=== PATIENT | male | born 1945 | race Caucasian/White ===

== ENCOUNTER 2019-03-26 07:53 | Outpatient (CLI) | payer MEDICARE, OTHER, SELFPAY ==
--- NOTE | ~2019-03-26 | CT_ITS ---
EXAMINATION: CT abdomen pelvis w con DATE: 03/26/2019 09:08 INDICATION: Small B cell lymphoma of axilla TECHNIQUE: Computed tomography (CT) of the abdomen and pelvis was performed with 100 cc Omnipaque 350 intravenous contrast. Automated exposure control and iterative reconstruction technique were employe d. Exam dose: 1014.71 mGy-cm total exam DLP. COMPARISON: None. FINDINGS: There are bilateral pleural calcifications suggesting prior asbestos exposure. There is ate lectasis and/or fibrotic change in the posterior left lung base, left lower lobe. Cardiomegaly. Trace pericardial effusion. There is slight right and minimal left pleural effusion. No hepatic space-occupying mass lesion or bile duct or pancreatic duct dilatation. The gallbladder is unremarkable. No pancreatic mass lesion or calcification. There is splenomegaly, the spleen measuring approximately 14.9 cm height. There is periportal, periao rtic, aortocaval and bilateral common, external and internal iliac lymphadenopathy. Aortocaval nodes measure up to 1.8 cm. Left periaortic nodes measure up to 1.4 cm. Left external iliac lymph node mass measures up to 2.35 x 4.0 cm. Right external iliac lymph node mas s measures up to 2.7 x 4.7 cm. Bilateral inguinal lymphadenopathy, right inguinal nodes measuring up to 1.58 x 2.5 cm, left inguinal lymph nodes measuring up to 1.4 x 1.7 cm. There are bilateral adrenal masses, measuring approximately 11 x 15 mm on the right and 16 x 25 mm on the left. No renal mass lesion or urinary tract calculus or hydroureteronephrosis. There is prostate enlargement. The urinary bladder is unremarkable. There is extensive aortic and iliac and femoral arterial calcification but no aneurysm. Normal appendix. No bowel obstruction or intraperitoneal free air. Degenerative changes of the lower thoracic and lumbar spine, including particularly prominent degener ative disc disease at L2-3, L3-4 and L4-5, prominent degenerative change at the apophyseal joints of the lumbar spine. IMPRESSION: Splenomegaly Periaortic, aortocaval, bilateral common, external and internal iliac and bilateral inguinal lymphade nopathy, consistent with diagnosis of lymphoma Bilateral adrenal masses, larger on the left Bilateral pleural calcifications suggesting prior asbestos exposure Cardiomegaly Trace pericardial and minimal pleural effusions Prostate enlargement Reviewed, dictated and finalized at [facility]. Reviewed, dictated and finalized at location [facility]. NG ROOM ATTENDANT IMPRESSION: Splenomegaly Periaortic, aortocaval, bilateral common, external and internal iliac and bilat eral inguinal lymphadenopathy, consistent with diagnosis of lymphoma Bilateral adrenal masses, larger on the left Bilateral pleural calcifications suggesting prior asbestos exposure Cardiomegaly Trace pericardial and minimal pleural effusions Prostate enlargement
[2019-03-26 08:57] LABS: Blood Urea Nitrogen 22 mg/dL (8-26); Estimated Glomerular Filt Rate 46
== END 2019-03-26 07:54 | disposition home or self-care (01) ==
PROVIDERS: PCP Family Medicine; Visit Provider Internal Medicine Hematology & Oncology
DX: C91.10 Chronic lymphocytic leukemia of B-cell type not having achieved remission (principal)
CPT/HCPCS: 36415; 74177; 80053; 83615; 85025; 88184; 88185; 88271; 88275; Q9967

== ENCOUNTER 2019-03-26 09:30 | Outpatient (CLI) | payer MEDICARE, OTHER, SELFPAY ==
[2019-03-26 10:00] LABS: Hemoglobin 8.2 g/dL (14.0-18.0); Mean Corpuscular HGB Conc 29.3 g/dl (32-36); Mean Corpuscular Hemoglobin 33.3 pg (26-34); Mean Corpuscular Volume 113.8 fl (80-100); Mean Platelet Volume 10.2 fl (7.4-10.4); Platelet Count Result 61 k/mm3 (150-375); Red Blood Count 2.46 M/mm3 (4.6-6.20); Red Cell Distribution Width 16.8 % (11.5-14.5)
[2019-03-26 10:22] LABS: Lymphocytes Absolute Manual 90.25 K/mm3 (1.1-4.5); Metamyelocytes Percent 2 %; Neutrophils Percent Manual 3 % (46-73); Platelet Estimate Decreased (Adequate); Smudge Cells PRESENT; Total Cells Counted 100
[2019-03-26 10:23] LABS: Atypical Lymphocytes Present; Hypochromasia 1+ (NORMAL)
[2019-03-26 12:03] LABS: Alanine Aminotransferase 11 U/L (4-50); Albumin Level 3.9 g/dL (3.5-5.1); Alkaline Phosphatase 126 U/L (38-126); Aspartate Amino Transferase 21 U/L (17-59); Bilirubin,Total 0.4 mg/dL (0.2-1.3); Blood Urea Nitrogen 23 mg/dL (9-20); Calcium 9.2 mg/dL (8.4-10.2); Carbon Dioxide 20 mmol/L (22-30); Chloride 105 mmol/L (98-107); Estimated Glomerular Filt Rate 46; Glucose 109 mg/dL (75-110); Lactate Dehydrogenase 446 U/L (313-618); Potassium 5.7 mmol/L (3.4-5.0); Sodium 139 mmol/L (137-145)
== END 2019-03-26 09:31 | disposition home or self-care (01) ==
PROVIDERS: PCP Family Medicine; Visit Provider Internal Medicine Hematology & Oncology
DX: C83.04 Small cell B-cell lymphoma, lymph nodes of axilla and upper limb (principal)
CPT/HCPCS: 36415; 80053; 83615; 85025; 88184

== ENCOUNTER 2019-04-09 10:07 | Outpatient (CLI) | payer MEDICARE, OTHER, SELFPAY ==
[2019-04-09 10:21] LABS: Immature Reticulocyte Fraction 35.2 % (3.0-15.9); Reticulocyte Percent 1.96 % (0.7-4.3); Reticulocytes Absolute 0.05 B/L (32.2-175.7)
[2019-04-09 12:12] LABS: Iron 62 ug/dL (49-181)
[2019-04-09 12:18] LABS: Lactate Dehydrogenase 451 U/L (313-618)
[2019-04-09 12:21] LABS: Percent Iron Saturation 21 % (20-50)
[2019-04-09 13:26] LABS: Folic Acid > 20.0 ng/mL (2.76->20)
== END 2019-04-09 10:08 | disposition home or self-care (01) ==
LOC: ANHLAB 10:10
PROVIDERS: PCP Family Medicine; Visit Provider Internal Medicine Hematology & Oncology
DX: D64.9 Anemia, unspecified (principal)
CPT/HCPCS: 36415; 82607; 82728; 82746; 83540; 83550; 83615; 85046

== ENCOUNTER 2019-04-14 09:17 | Outpatient (CLI) | payer MEDICARE, OTHER, SELFPAY ==
--- NOTE | 2019-04-14 09:21 | ECG_ITS ---
Measurements Intervals [place] Rate: 56 P: 33 IA: 202 QRS: -2 QRSD: 108 T: 21 QT: 429 QTc: 414 Interpretive Statements SINUS BRADYCARDIA VOLTAGE CRITERIA FOR LVH DELAYED PRECORDIAL R/S TRANSITION BASELINE ARTIFACT- I, II, III, AVR, AVL, AVF, V6 BORDERLINE ECG Electronically Signed On 04-14-2019 9:44:33 BARN OPERATOR by Dion Collins D.O.
[2019-04-14 10:05] LABS: Potassium 6.1 mmol/L (3.4-5.0)
[2019-04-14 10:10] LABS: Hematocrit 28.4 % (42.0-52.0); Hemoglobin 8.1 g/dL (14.0-18.0); Immature Platelet Fraction Pct 4.5 % (0.9-11.2); Mean Corpuscular HGB Conc 28.5 g/dl (32-36); Mean Corpuscular Hemoglobin 33.6 pg (26-34); Mean Corpuscular Volume 117.8 fl (80-100); Platelet Count Result 103 k/mm3 (150-375); Red Blood Count 2.41 M/mm3 (4.6-6.20); Red Cell Distribution Width 15.9 % (11.5-14.5)
[2019-04-14 10:11] LABS: INR 1.1; Prothrombin Time 14.2 Seconds (11.1-14.7)
[2019-04-14 10:12] LABS: Partial Thromboplastin Time 31.5 SECONDS (22.3-36.8)
[2019-04-14 10:37] LABS: White Blood Count 97.2 K/mm3 (4.5-10.0)
[2019-04-14 10:40] LABS: Blastocytes 2 %; Lymphocytes Absolute Manual 82.62 K/mm3 (1.1-4.5); Monocytes Absolute Manual 12.63 K/mm3 (0.1-0.90); Monocytes Percent Manual 13 % (3-9); Platelet Estimate Decreased (Adequate); Total Cells Counted 100
[2019-04-14 10:41] LABS: Atypical Lymphocytes Present; Hypochromasia 1+ (NORMAL)
== END 2019-04-14 09:18 | disposition home or self-care (01) ==
PROVIDERS: Anesthesiology; PCP Family Medicine; Visit Provider Surgery
DX: C91.10 Chronic lymphocytic leukemia of B-cell type not having achieved remission (principal); I10 Essential (primary) hypertension
CPT/HCPCS: 36415; 84132; 85025; 85055; 85610; 85730; 93005

== ENCOUNTER 2019-04-26 01:04 | Day surgery (SDC) | payer MEDICARE, OTHER, SELFPAY ==
[2019-04-12 15:59] VITALS: BMI 27.8
--- NOTE | ~2019-04-26 | XR_ITS ---
EXAMINATION: XR chest port-a-cath/central DATE: 04/26/2019 16:02 INDICATION: Port placement. TECHNIQUE: A single frontal view of the chest was obtained. COMPARISON: Chest 2 views 01/26/2019, chest CT 02/05/2019 FINDINGS: There is no pneumonia, pleural effusion, or pneumothorax. Cardiomegaly is noted. There are multiple old healed right rib fractures. There is a right internal jugular port with tip in superior vena cava. IMPRESSION: 1. Port tip in superior vena cava. 2. Cardiomegaly. Reviewed, dictated and finalized at location A.
--- NOTE | ~2019-04-26 | XR_ITS ---
EXAMINATION: XR fl guide central line place DATE: 04/26/2019 16:25 INDICATION: Port placement. TECHNIQUE: A single intraoperative fluoroscopic view of the chest was obtained. I was not present. Fl uoroscopy exposure time was 59 seconds. COMPARISON: Chest single view 04/26/2019 FINDINGS: There is a right internal jugular port with tip in superior vena cava. IMPRESSION: 1. Port tip in superior vena cava. Reviewed, dictated and finalized at location A.
--- NOTE | 2019-04-26 11:02 | PM.HPGS ---
History of Present Illness History of Present Illness Consent: Risks, benefits, and alternatives of placement of a Port-A-Cath have been discussed and questions answered. Patient agrees to proceed with procedure. 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 He is receiving chemotherapy for this. I have been asked to place a port for continued use of treatment and chemotherapy. Review of Systems Constitutional: Constitutional: Reports no additional constitutional complaints, Reports fatigue and Denies malaise Eyes: Eyes: Denies change in vision and Denies loss of vision ENT: Reports Normal hearing present, Denies change in voice, Denies dizziness, Denies hoarseness and Denies sore throat Cardiovascular: Cardiovascular: Denies chest pain, Denies leg edema and Denies dyspnea Respiratory: Respiratory: Denies cough, Denies dyspnea and Denies wheezing Gastrointestinal: Gastrointestinal: Denies hematochezia, Denies change in bowel habits and Denies heartburn Genitourinary: Genitourinary: Denies urinary frequency and Denies urinary incontinence Neurologic: Reports Normal hearing present, Denies confusion, Denies dizziness, Denies loss of vision, Denies memory loss and Denies seizure-like activity Psychiatric: Psychiatric: Denies confusion, Denies depression and Denies memory loss Endocrine: Endocrine: Denies cold intolerance and Reports fatigue Hematologic/Lymphatic: Hematologic/Lymphatic: Reports as per HPI, Denies easy bleeding, Denies easy bruising and Reports lymphadenopathy ( Right axilla and groins.) Allergic/Immunologic: Allergic/Immunologic: Denies wheezing [facility] Past Medical History Medical History (Updated 04/26/19 @ 11:07 by Marc Aguilar MD) CLL (chronic lymphocytic leukemia) (~02/2019) Hyperlipidemia Hypertension (Unknown) Social History Social History Smoking status: Former smoker Tobacco type: cigars Smoking end date: 06/21/04 Gender identity (if verbalized by the patient): Male Spiritual care concerns: No Meds Home Medications and Allergies Home Medications Medication Instructions Recorded Confirmed Type atorvastatin 10 mg PO HS 04/12/19 04/26/19 History hydralazine 25 mg PO DAILY 04/12/19 04/26/19 History lisinopril 40 mg PO DAILY 04/12/19 04/26/19 History nebivolol [Bystolic] 20 mg PO DAILY 04/12/19 04/26/19 History terazosin 10 mg PO DAILY 04/12/19 04/26/19 History Allergies Allergy/AdvReac Type Severity Reaction Status Date / Time No Known Allergies Allergy Verified 04/20/19 15:22 Exam Const: General: cooperative, healthy appearing, no acute distress, well developed and alert; No confusion Nutritional Appearance: well nourished Orientation/consciousness: patient oriented x3 and No confusion Limitations: no limitations HENMT: Head: normal to inspection, normocephalic and atraumatic Ears: hearing grossly normal bilaterally General nose exam: Normal external nose present Face and sinus: no edema Mouth: Yes Normal oral and palatal mucosa present and Yes lip normal Throat: posterior oropharynx normal Eyes: General: appearance normal, both eyes and all related structures Sclera: sclerae normal Pupils: Equal, round and reactive pupils present EOM: EOMs intact bilaterally Neck: Neck: normal visual inspection, no lymphadenopathy, trachea midline and supple Other: No easily palpable lymphadenopathy on the neck at this time. Resp: Effort & Inspection: normal respiratory effort and able to speak in complete sentences Auscultation: clear to auscultation bilaterally Cardio: Jugular venous distension: no JVD Rate: regular rate Rhythm: regular rhythm GI: Inspection: normal to inspection GI Palp: Yes Soft to palpation, No Tenderness to palpation present (GI), No Guarding due to palpation presen
[2019-04-26] MEDS: LACTATED RINGERS 1,000 ML 30 ML IV CONT (12:30)
[2019-04-26 12:46] LABS: Hematocrit 26.1 % (42.0-52.0); Hemoglobin 7.4 g/dL (14.0-18.0); Immature Platelet Fraction Pct 6.3 % (0.9-11.2); Mean Corpuscular HGB Conc 28.4 g/dl (32-36); Mean Corpuscular Hemoglobin 33.5 pg (26-34); Mean Corpuscular Volume 118.1 fl (80-100); Mean Platelet Volume 11.2 fl (7.4-10.4); Platelet Count Result 42 k/mm3 (150-375); Red Blood Count 2.21 M/mm3 (4.6-6.20); Red Cell Distribution Width 16.9 % (11.5-14.5)
[2019-04-26 12:48] LABS: White Blood Count 78.7 K/mm3 (4.5-10.0)
[2019-04-26 12:50] VITALS: BP 146/70; PULSE 57; RESP 20; TEMP 36.4; O2SAT 100
[2019-04-26 12:54] LABS: Blood Urea Nitrogen 23 mg/dL (9-20); Calcium 9.3 mg/dL (8.4-10.2); Carbon Dioxide 22 mmol/L (22-30); Chloride 109 mmol/L (98-107); Estimated CRCL calculation 59 ml/min; Estimated Glomerular Filt Rate > 60; Glucose 124 mg/dL (75-110); Potassium 5.4 mmol/L (3.4-5.0); Sodium 139 mmol/L (137-145)
--- NOTE | 2019-04-26 13:05 | WPDANESEPPF ---
Anes - Initial Pre Proc Eval Procedure: Operation Date: 04/26/19 13:30 Proposed Procedures p Insertion Katia Cath - Marc Aguilar MD Date/Time: 04/26/19 13:05 Surgeon: Marc Aguilar MD Pre Op Diagnosis: Lymphoma Patient Data Age: 73 Gender: M Height: 1.83 m Weight: 92.99 kg Last Vital Signs Temp 36.4 C 04/26/19 12:50 Pulse 57 L 04/26/19 12:50 Resp 20 04/26/19 12:50 BP 146/70 H 04/26/19 12:50 Pulse Ox 100 04/26/19 12:50 Allergies Allergy/AdvReac Type Severity Reaction Status Date / Time No Known Allergies Allergy Verified 04/20/19 15:22 Home Medications Medication Instructions Recorded Confirmed Type atorvastatin 10 mg PO HS 04/12/19 04/26/19 History hydralazine 25 mg PO DAILY 04/12/19 04/26/19 History lisinopril 40 mg PO DAILY 04/12/19 04/26/19 History nebivolol [Bystolic] 20 mg PO DAILY 04/12/19 04/26/19 History terazosin 10 mg PO DAILY 04/12/19 04/26/19 History Laboratory Tests 04/26/19 04/26/19 12:22 12:22 WBC 78.7 K/mm3 H* K/mm3 (4.5-10.0) RBC 2.21 M/mm3 L M/mm3 (4.6-6.20) Hgb 7.4 g/dL L g/dL (14.0-18.0) Hct 26.1 % L % (42.0-52.0) MCV 118.1 fl H fl (80-100) MCH 33.5 pg pg (26-34) MCHC 28.4 g/dl L g/dl (32-36) RDW 16.9 % H % (11.5-14.5) Plt Count 42 k/mm3 L D k/mm3 (150-375) MPV 11.2 fl H fl (7.4-10.4) % Immature Plt Fraction 6.3 % % (0.9-11.2) Sodium 139 mmol/L mmol/L (137-145) Potassium 5.4 mmol/L H mmol/L (3.4-5.0) Chloride 109 mmol/L H mmol/L (98-107) Carbon Dioxide 22 mmol/L mmol/L (22-30) BUN 23 mg/dL H mg/dL (9-20) Creatinine 1.10 mg/dL mg/dL (0.7-1.3) Estim Creat Clear Calc 59 ml/min ml/min Estimated GFR > 60 (59 - ) Glucose 124 mg/dL H mg/dL (75-110) Calcium 9.3 mg/dL mg/dL (8.4-10.2) Patient hx anesthesia problems: none Family hx anesthesia problems: none [facility] Past Medical History Medical History (Updated 04/26/19 @ 11:07 by Marc Aguilar MD) CLL (chronic lymphocytic leukemia) (~02/2019) Hyperlipidemia Hypertension (Unknown) Social History Social History Smoking status: Former smoker Tobacco type: cigars Smoking end date: 06/21/04 Gender identity (if verbalized by the patient): Male Spiritual care concerns: No Anes - Eval Final PreProcedure Day of Procedure 04/26/19 13:05 Patient weight: overweight Heart: regular rate and rhythm Lungs: clear to auscultation and normal air movement Airway: Mallampati scale class II Neurological: alert and oriented Last oral intake: >/= 8 hours ASA classification: III Emergent: no Anesthetic plan: proceed Anesthesia type and monitoring: general GIVS and standard monitoring Informed Consent: The patient's anesthetic plan and its attendant risks and benefits were discussed with the patient/family/POA. Questions were solicited and answers provided to the satisfaction of the patient/family/POA.
[2019-04-26] MEDS: ceFAZolin 2 GM/D5W 50 ML 2 GM/50 ML BAG IVPB (15:09)
[2019-04-26] MEDS: BUPIVACAINE/EPINEPHRINE 0.5% 10 ML VIAL INFILTRATE (15:29)
[2019-04-26] MEDS: HEPARIN SODIUM 5,000 UNITS/ML VIAL 5000 UNITS IRRIGATION (15:30)
[2019-04-26 16:01] VITALS: BP 141/67; PULSE 55
--- NOTE | 2019-04-26 16:07 | PM.PROC ---
Procedure Note - Detailed Date of procedure: 04/26/19 Pre-op diagnosis: Lymphoma Post-op diagnosis: same Procedure performed: placement of Port-A-Cath Description of procedure: Patient was seen and marked in the pre-op area prior to coming to the OR. Patient was brought to the operating room. He was placed supine on the operating table and general IV sedation was induced. The nurse curb setter provided oxygen and IV sedation. Patient's head was carefully turned to the left side while in the supine position and the patient's entire neck and anterior chest on both sides was prepped and draped in the usual sterile fashion. Following this the appropriate time-out was completed confirming procedure and patient. We confirmed that all the needed equipment was present in the room. Following this the ultrasound probe was draped into the field and using the probe we carefully identified the carotid artery and jugular vein on the right neck. I marked the skin directly over the Rt. internal jugular vein. Following this, using the continuous ultrasound guidance, a Cook needle was placed through the skin into this vein. I then was able to draw back good dark blood. Once this was completed a guidewire using a J-tip was advanced through the needle and then the needle and the guidewire cover were withdrawn. C-arm fluoroscopy was used to confirm that the guidewire was nicely in the venous system. Once this was confirmed with the C - arm I preceded on by making the pocket for the port on the patient's anterior right chest approximately 3 centimeters below the clavicle overlying the chest wall. Local anesthetic was infiltrated into the skin where there was a transverse incision marked out. Incision was made and we made a pocket inferior to the incision with just a little dissection superior. The low-profile port was tried in the pocket and seemed to fit well. Following this the catheter which had been placed on a tunneling device was tunneled from the port site on the anterior right chest up to the right neck where a small incision had been made with an #11 blade knife. Then the catheter was pulled through so that we would have 15 centimeters to put into the central venous system once the dilation took place. Following this we placed the dilator and sheath over the guidewire in the jugular vein and carefully dilated the tract into the central venous system. The guidewire and dilator were then removed, carefully covering the end of the sheath to prevent air embolus. The end of the catheter which had been cut off straight across and the tip checked was then inserted into the sheath and into the neck. I then carefully pulled the 2 arms of the tear-away sheath away as the clinical medical assistant held the catheter in position with a DeBakey forceps. Following this we checked the position of the catheter with C-arm fluoroscopy confirming that the tip seemed to be in the distal superior vena cava near the junction with the right atrium. I felt that it was in good position and so the rest of the catheter was pulled down toward the feet into the port site. We then measured to the appropriate position to cut the catheter to attach it to the port stem. Then the connector sealing device for the catheter port was placed onto the catheter and then the catheter cut to the appropriate length and inserted onto the stem of the port. Then the connector was advanced onto the stem over the catheter sealing it to the port. A single 3- 0 Prolene suture was also used during this to suture the connector to the port and to the underlying musculature. Following this at one other site the port was sutured to the underlying musculature with the 3-0 Proline. Both prior to connecting the catheter to the port and then using a straight Bob needle following this connection, the port was aspirated of good dark blood and flushed with heparinized saline to keep the catheter from having any air in it and to confirm that it
--- NOTE | 2019-04-26 16:12 | SUR.PHASEII ---
radiology came in to take chest xray
[2019-04-26 16:30] VITALS: BP 141/67; PULSE 52
[2019-04-26 17:31] VITALS: BP 140/68; PULSE 56
--- NOTE | 2019-04-26 17:42 | SUR.PHASEII ---
Pts was late to pickup I called her at 1715 and left message that Josue was finished and ready to be discharged Pts arrived at 1725
== END 2019-04-26 17:30 | disposition home or self-care (01) ==
PROVIDERS: PCP Family Medicine; Visit Provider Surgery
PROC: (CPT 36561; principal; 2019-04-26 13:30)
DX: C91.10 Chronic lymphocytic leukemia of B-cell type not having achieved remission (principal); I10 Essential (primary) hypertension; E78.5 Hyperlipidemia, unspecified; Z87.891 Personal history of nicotine dependence
CPT/HCPCS: 36561; 36415; 77001; 80048; 85027; 85055; 86850; 86900; 86901; C1788; J0690; J1644; J2405; J2704; J3010; J7030; J7120

== ENCOUNTER 2019-05-12 07:01 | Outpatient (RCR) | payer MEDICARE, OTHER, SELFPAY ==
[2019-05-12] VITALS (9 sets, daily range): BP systolic 130–166; BP diastolic 71–81; PULSE 48–54; RESP 16; TEMP 36.8–37.2; O2SAT 98–100; BMI 27.6
[2019-05-12] MEDS: ACETAMINOPHEN 325 MG TABLET 650 MG PO (08:08)
[2019-05-12] MEDS: SODIUM CHLORIDE 0.9% IV 250 ML 30 ML IV CONT (08:50)
[2019-05-12] MEDS: FUROSEMIDE INJ 40 MG/4 ML VIAL 20 MG IV PUSH (11:24)
[2019-05-12] MEDS: HEPARIN SOD FLUSH 500 UNITS/5 ML SYRINGE (14:40)
== END 2019-08-10 23:59 | disposition home or self-care (01) ==
LOC: ANHCPCTRAN 07:01
PROVIDERS: PCP Family Medicine; Visit Provider Internal Medicine Hematology & Oncology
DX: C91.10 Chronic lymphocytic leukemia of B-cell type not having achieved remission (principal)
CPT/HCPCS: 36415; 36430; 86850; 86900; 86901; 86923; 96374; A9270; J1940; J7050; P9016

== ENCOUNTER 2019-08-04 08:33 | Outpatient (CLI) | payer MEDICARE, OTHER, SELFPAY ==
--- NOTE | ~2019-08-04 | CT_ITS ---
EXAMINATION: CT chest abdomen pelvis w con DATE: 08/04/2019 09:17 INDICATION: Lymphoma TECHNIQUE: Transaxial computed tomographic images of the chest, abdomen, and pelvis were obtained aft er the administration of 100 cc of Omnipaque 350 intravenous contrast. The dose-length product (DLP) was 1309.77 mGy-cm. Automated exposure control and iterative reconstruction technique were employed. COMPARISON: 03/26/2019, 02/05/2019 FINDINGS: CHEST CT: There has been interval response to therapy as evidenced by return to normal size of previously patho logically enlarged mediastinal, bilateral axillary, and bilateral subpectoral lymph nodes. No patholo gically enlarged thoracic lymph nodes are identified. A right internal jugular Port-A-Cath ends with its tip in the proximal right atrium. The heart size is normal. The lungs are free of acute opacities . There is no pleural effusion or pneumothorax. There is severe thoracic spondylosis. Healed right-si ded rib fractures are again noted. ABDOMEN/PELVIS CT: The spleen is decreased in size measuring up to 14.0 cm, previously 17.3 cm. Stable low-attenuation m asses of the adrenal glands are consistent with adenomas. The liver, pancreas, and gallbladder are no rmal. 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 The previously described p athologically enlarged abdominal, pelvic, and retroperitoneal lymph nodes are now normal in size. No pathologically enlarged abdominal or pelvic lymph nodes are identified. There is severe lumbar spondy losis. IMPRESSION: 1. Interval response to therapy as evidenced by resolution of thoracic, abdominal, and pelvic lymphad enopathy and splenomegaly. Reviewed, dictated and finalized at location A. IMPRESSION: 1. Interval response to therapy as evidenced by resolution of thoracic, abdomin al, and pelvic lymphadenopathy and splenomegaly.
== END 2019-08-04 08:34 | disposition home or self-care (01) ==
PROVIDERS: PCP Family Medicine; Visit Provider Internal Medicine Hematology & Oncology
DX: C83.00 Small cell B-cell lymphoma, unspecified site (principal)
CPT/HCPCS: 71260; 74177; Q9967

== ENCOUNTER 2021-08-13 01:28 | Day surgery (SDC) | payer MEDICARE, OTHER, SELFPAY ==
[2021-08-07 14:17] VITALS: BMI 31.2
--- NOTE | 2021-08-07 14:21 | PC.NURSE ---
Report to the Outpatient Waiting Room, entrance under the green pavilion located off [facility], at time ___1230____ on date __08/13/21 . OR Time: ___1329 . - You and your visitor will be asked a series of questions to screen for COVID 19 for your protection. - Only one visitor is allowed at this time. - The patient visitor is requested to leave or wait in car when not with patient. - A mask is required within the hospital. Patients may have clear liquids (water, carbonated beverages, clear teas, apple juice) until 3 hours prior to surgery with a maximum of 20 ounces.-----N/A - No food from midnight until time of surgery------N/A - Infants may have breast milk until 4 hours before surgery, infant formula 6 hours prior to surgery. - Children will be allowed to drink immediately following surgery. If applicable, please bring a bottle or sippy cup to assist with drinking. Juice, water, soda, and popsicles are readily available. For infants on formula, please bring formula the day of surgery. Pacifiers are allowed. Take the following medications with a SIP of water the morning of surgery: REGULAR HOME MEDS Medications to discontinue per physician N/A Date to take last dose Please no make-up, nail nepali, hairspray, perfume, deodorant, or body powder the day of surgery. No jewelry (including any body piercings) or valuables the day of surgery, leave them at home. Please take a shower or bath the night before, or the morning of, surgery with an antibacterial soap. Wear comfortable, loose fitting clothing. Children are encouraged to wear pajamas. - Jewelry must be removed prior to entering the operating room. Rings and piercings that are not removed may be cut off. - The hospital will not accept responsibility for valuables. - Please leave all valuables, including medications, at home the day of surgery. If you are going home after surgery, a licensed national flatbed truck driver must drive you home. - NO public transportation without another adult. - We recommend that an adult stay with you for 24 hours following discharge. - We also recommend that you do not drive, make important decision, drink alcoholic beverages, or take any drugs that were not prescribed by your health care provider for at least 24 hours after your discharge time. For Pediatric surgeries, we recommend two adults accompany the child home (only one inside the building at this time). Follow any additional instructions given to you from your surgeon. If you or anyone in your household have experienced Covid symptoms in the past week, please notify your surgeon or the nurse liaison at the phone number below for possible testing. Telephone instructions given to ___PT and asked if any additional questions and then verbalized understanding. Patient advised to call surgeon office or pre surgery nurse liaison [phone] if any additional questions.
--- NOTE | 2021-08-12 19:37 | PM.HPGS ---
History of Present Illness History of Present Illness Consent: Risks, benefits, and alternatives of removal of a Port-A-Cath has been discussed and questions answered. Patient agrees to proceed with procedure. Chief complaint: hx of leukemia Narrative: Juan Diego Harris is a 75 year old White male is currently a patient [facility]. He has been treated for chronic lymphocytic leukemia and small cell lymphocytic Lymphoma. He underwent chemo/ immune therapy through the port between March and November of 2019. This time he is on oral maintenance therapy in [facility] feels he knows longer needs the central venous access. Therefore, he has requested that we proceed with removal of the Port-A-Cath. Patient would like to proceed also period Review of Systems Review of Systems: ROS- In general patient has had no significant recent weight loss, anorexia, night sweats, fever, or chills. Skin-no recent excision of lesions, easy bruising or bleeding or color change Eyes-no problems with vision loss HENT-no recent bleeding, obstruction or other problems Neck-no history of thyromegaly or enlarged lymph nodes Chest-no history of significant wheezing, dyspnea or cough Skin- history of squamous cell carcinoma. Cardiovascular-no history of thrombophlebitis, edema, heart murmur, but has had HTN and Hyperlipidemia GI-no history of significant heartburn, nausea, change in bowel movement pattern, rectal bleeding or hernia. Hx of hepatitis Extremities-no history or varicose veins, claudication Endocrine-no history of temperature intolerance or goiter Neurologic-no history of headaches, seizures or dizziness. [facility] Past Medical History Medical History CLL (chronic lymphocytic leukemia) (~02/2019) Diabetes H/O hepatitis Hyperlipidemia Hypertension (Unknown) Obesity (BMI 30.0-34.9) Squamous cell carcinoma Family History Family History Father Alcoholism Rheumatoid arthritis Social History Social History Smoking status: Former smoker Tobacco type: cigars Second hand tobacco smoke exposure: No Smoking end date: 06/17/04 Alcohol intake: current Drinks per week: 4 Substance use: never Substance use type: does not use Living arrangements: with family Gender identity (if verbalized by the patient): Male Spiritual care concerns: No Meds Home Medications and Allergies Home Medications Medication Instructions Recorded Confirmed Type acalabrutinib 100 mg capsule 100 mg PO Q12H 06/19/20 08/13/21 History ([facility]) atorvastatin 10 mg tablet 10 mg PO HS #30 tabs 05/01/21 08/13/21 Rx echinacea 400 mg capsule 400 mg PO HS 08/07/21 08/13/21 History ferrous sulfate 325 mg (65 mg 325 mg PO HS 08/07/21 08/13/21 History iron) tablet (Iron (ferrous sulfate)) hydralazine 25 mg tablet 25 mg PO HS 08/07/21 08/13/21 History losartan 50 mg tablet 50 mg PO HS 08/07/21 08/13/21 History multivitamin 1 cap HS 08/07/21 08/13/21 History nebivolol 20 mg tablet 20 mg PO HS 08/07/21 08/13/21 History terazosin 10 mg capsule 10 mg PO HS 08/07/21 08/13/21 History Allergies Allergy/AdvReac Type Severity Reaction Status Date / Time No Known Allergies Allergy Verified 08/13/21 12:47 Exam Const: General: cooperative, healthy appearing, no acute distress, well developed and alert; No confusion Nutritional Appearance: well nourished Orientation/consciousness: patient oriented x3 and No confusion Limitations: no limitations HENMT: Head: normal to inspection, normocephalic and atraumatic Ears: hearing grossly normal bilaterally General nose exam: Normal external nose present Face and sinus: no edema Mouth: Yes Normal oral and palatal mucosa present and Yes lip normal Throat: posterior oropharynx normal Eyes: General: appearance normal, both eyes and all relat
--- NOTE | 2021-08-13 13:07 | SUR.PREOP ---
1300- updated Dr. Aguilar that pt BP was 182/101, moved arms 155/101. HR 81. Pt stated he took all three of this BP meds at 1200 today. Pt stated BP normally runs 140's over 90's. Pt stated he was nervous. retook BP on other arms 190/85. Dr. Aguilar stated he will be out to see pt in pre op area. no new orders given.
[2021-08-13 13:12] VITALS: BP 190/85; PULSE 81; RESP 16; TEMP 36.2; O2SAT 97
--- NOTE | 2021-08-13 13:32 | WPDHPUPDATE1 ---
History and Physical Update Update Date/Time: 08/13/21 13:32 History and Physical has been reviewed, including an updated exam of the patient. There are NO changes in the patient's condition. Patient has hypertension and his blood pressure is a little bit up today but he has taken all his medications. Probably is just a little nervous. Risks, benefits, and alternatives have been discussed and questions answered. Patient agrees to proceed with procedure.
[2021-08-13 13:55] VITALS: BP 196/94; PULSE 57; RESP 16; O2SAT 96
[2021-08-13 14:05] VITALS: BP 177/91; PULSE 58; RESP 16; O2SAT 95
[2021-08-13 14:15] VITALS: BP 168/91; PULSE 59; RESP 16; O2SAT 95
[2021-08-13 14:25] VITALS: BP 180/93; PULSE 58; RESP 16; O2SAT 95
--- NOTE | 2021-08-13 14:44 | P.OP_ITS ---
Procedure Note - Detailed Date of Procedure 08/13/21 Pre-op Diagnosis hx of chronic lymphocytic leukemia Post-op Diagnosis Same Procedure Performed Removal of Katia-cath Surgeon Marc Aguilar MD [employer] none Anesthesia MAC and Local (2% Xylocaine with Epi) Indications Patient has had a Port-A-Cath in for chemotherapy in the past. Now no longer in use. Plan to remove under local anesthetic. Findings Port that did not appear to be infected and was well incorporated into the pocket. Description of Procedure Prior to the procedure the patient was seen in the holding area and the area of proposed surgery was marked. All questions were answered and the patient wished to proceed with removal of the Port-A-Cath. The patient was brought to the operating room and placed supine. The entire right neck, chest, and shoulder were prepped with chlorhexidine. The area was draped off. Time-out was performed confirming patient and site of surgery. Following this a 15 blade knife was used to make incision directly on the scar from the previous port placement. This was done after infiltrating local anesthetic into the area of and inferior to the scar and into the area of the pocket containing the port to some degree using 1% xylocaine with epinephrine. Following this we carefully dissected down to the junction of the port and catheter. Bovie cautery with needle-tip was used to carefully incise the capsule around the port and free up the scar tissue around the junction of the port and catheter. Two Prolene sutures that were holding the port to the underlying fascia were carefully excised with a 15 blade knife and mosquito hemostats. Following this the port was brought up and out of the pocket. Then watching the patient's respirations I carefully removed the catheter in one smooth pull while applying pressure in the lower right neck area at the catheter exit site as the patient was breathing out. Pressure was held for 1 minute. I used Bovie cautery on some the subcutaneous tissues as we waited for good clotting. Again hemostasis was checked in the wound using Bovie cautery for superficial hemostasis in the subcutaneous tissues. Following this closure was obtained with 2 layers. I used buried subcutaneous sutures of 3-0 Vicryl in the subcutaneous layer followed by a running subcuticular closure of 4-0 Monocryl on the skin. Patient tolerated the procedure well. I inspected the port and catheter and this intact and was not sent for pathology. Estimated blood loss was 3 cc. Sponge, needle, and instrument counts were correct at the end the procedure and patient was taken to the outpatient recovery area in good condition. Implants none Estimated Blood Loss 3 Drains No Packing No Pathology None sent Complications No immediate complications Condition Stable Disposition Same day [facility] Billing Surgery - Charge Forward: Surgery Billing
[2021-08-13 14:45] VITALS: BP 184/80; PULSE 58; RESP 16; O2SAT 97
== END 2021-08-13 15:05 | disposition home or self-care (01) ==
PROVIDERS: PCP Family Medicine; Visit Provider Surgery
PROC: (CPT 36589; principal; 2021-08-13 13:30)
DX: Z45.2 Encounter for adjustment and management of vascular access device (principal); C91.10 Chronic lymphocytic leukemia of B-cell type not having achieved remission; I10 Essential (primary) hypertension; E11.9 Type 2 diabetes mellitus without complications; E78.5 Hyperlipidemia, unspecified; Z87.891 Personal history of nicotine dependence
CPT/HCPCS: 36590

== ENCOUNTER → 2021-09-03 09:41 | Outpatient (CLI) | payer MEDICARE, OTHER, SELFPAY ==
--- NOTE | ~2021-09-03 | XR_ITS ---
XR chest 2V DATE: 09/03/2021 09:58 INDICATION: Essential hypertension TECHNIQUE: 2 views COMPARISON: 08/04/2019 CT chest abdomen pelvis FINDINGS: There is opacification of the lower half of the left hemithorax consistent with very large left pleural effusion and compressive atelectasis. The right lung is clear. No pleural effusion or pneumothorax. Azygos lobe, normal variant. Heart size is not optimally evaluated due to loss of left cardiac margin due to pleural effusion and atelectasis. Osteopenia. Degenerative spurring of the thoracic spine. IMPRESSION: Large left pleural effusion and associated left lung atelectasis, opacifying the lower burden lf of the left hemithorax Reviewed, dictated and finalized at location B. IMPRESSION: Large left pleural effusion and associated left lung atelectasis, o pacifying the lower half of the left hemithorax
== END ==
PROVIDERS: PCP Family Medicine; Visit Provider Family Medicine
DX: I10 Essential (primary) hypertension (principal); J90 Pleural effusion, not elsewhere classified
CPT/HCPCS: 71046

== ENCOUNTER 2021-09-03 15:07 | Inpatient (IN) | payer MEDICARE, OTHER, SELFPAY ==
[2021-09-03] VITALS (25 sets, daily range): BP systolic 142–229; BP diastolic 79–94; PULSE 53–72; RESP 16–28; TEMP 36.7–37.2; O2SAT 92–97; BMI 31.8
--- NOTE | ~2021-09-03 | XR_ITS ---
EXAMINATION: [id number] DATE: 09/04/2021 13:08 INDICATION: Large left pleural effusion postthoracentesis TECHNIQUE: frontal and lateral views of the chest were obtained. COMPARISON: Chest radiograph dated 09/03/2021 FINDINGS: Interval decrease in size of a now small to moderate left pleural effusion with associated left basil ar atelectasis and/or pneumonia. No pneumothorax or right-sided pleural effusion. Small nodular opaci ty lateral right midlung zone. Normal variant azygos lobe and fissure at the medial right apex. Cardi omediastinal silhouette is unchanged with obscuration of the lateral left heart border. Lateral right fifth and sixth old rib fractures. IMPRESSION: 1. Decreased now small to moderate left pleural effusion with associated left basilar atelectasis and /or pneumonia. 2. Indeterminate nodular opacity lateral right midlung zone which appears to correspond to a chronic region of round atelectasis/scarring dating back to CT dated 02/05/2019.. Reviewed, dictated and finalized at location A. IMPRESSION: 1. Decreased now small to moderate left pleural effusion with associated left b asilar atelectasis and/or pneumonia. 2. Indeterminate nodular opacity lateral right midlung zone which appears to co rrespond to a chronic region of round atelectasis/scarring dating back to CT da saritha 02/05/2019..
--- NOTE | ~2021-09-03 | US_ITS ---
EXAMINATION: US thoracentesis DATE: 09/04/2021 13:12 INDICATION: Large left pleural effusion TECHNIQUE: The procedure and its risks and benefits were discussed with the patient. Potential risks discussed included bleeding, infection, and pneumothorax. The patient understood the risks and agreed to proceed. The skin was prepped and draped in sterile fashion. 1% lidocaine was used for local anes thesia. Under ultrasound guidance, a 5 Fr catheter with trochar was advanced into the left pleural ef fusion. Fluid was aspirated. The catheter was removed, and a dressing was applied. There were no imme diate complications. FINDINGS: Ultrasound images demonstrate a left pleural effusion and the catheter within the fluid. IMPRESSION: 1. Successful ultrasound-guided thoracentesis yielding 1000 mL of dark maroon-colored fluid. Reviewed, dictated and finalized at location A. IMPRESSION: 1. Successful ultrasound-guided thoracentesis yielding 1000 mL of dark maroon- colored fluid.
--- NOTE | ~2021-09-03 | CT_ITS ---
EXAMINATION: CT diagnostic chest wo con DATE: 09/03/2021 18:21 INDICATION: Pleural effusion TECHNIQUE: Computed tomography (CT) of the chest was performed without intravenous contrast. Automate d exposure control and iterative reconstruction technique were employed. The dose-length product was 606.27 mGy-cm. COMPARISON: 08/04/2019. FINDINGS: CHEST: Thoracic aorta: Mild ectasia and arch calcification. Lung parenchyma and airways: Left lower lobe and lingular consolidation and volume loss. Thoracic inlet, axillae and chest wall: No thyroid or soft tissue mass. No axillary lymphadenopathy. Mediastinum: No mass or lymphadenopathy. Heart and pericardium: Normal heart size. No pericardial effusion. Coronary artery calcifications: Heavy. Pleura: Large volume left pleural effusion. Upper abdomen: No significant finding. Thoracic bones: No acute osseous finding in the chest. IMPRESSION: Large left pleural effusion with adjacent passive left lower lobe and lingular atelectasis. Pulmonary infection not excluded. Reviewed, dictated and finalized at location K.
--- NOTE | 2021-09-03 15:51 | ECG_ITS ---
Measurements Intervals [place] Rate: 62 P: -23 DC: 163 QRS: 9 QRSD: 101 T: 23 QT: 397 QTc: 404 Interpretive Statements SINUS RHYTHM DELAYED PRECORDIAL R/S TRANSITION BASELINE WANDER- V5-V6 BORDERLINE ECG Electronically Signed On 09-03-2021 18:50:43 CDT by Dion Collins D.O.
[2021-09-03 16:06] LABS: Basophils Percent Auto 0.4 % (0.2-1.2); Eosinophils Absolute Auto 0.2 K/mm3 (0-0.3); Eosinophils Percent Auto 1.9 % (0-4.4); Hematocrit 40.7 % (42.0-52.0); Hemoglobin 13.1 g/dL (14.0-18.0); Immature Granulocyte Absolute 0.02 K/mm3 (0.00-0.031); Immature Granulocyte Percent A 0.3 % (0-0.5); Immature Platelet Fraction Pct 8.7 % (0.9-11.2); Lymphocytes Absolute Auto 1.39 K/mm3 (0.9-3.2); Lymphocytes Percent Auto 18.1 % (18.3-44.2); Mean Corpuscular HGB Conc 32.2 g/dl (32-36); Mean Corpuscular Hemoglobin 31.7 pg (26-34); Mean Corpuscular Volume 98.5 fl (80-100); Mean Platelet Volume 11.2 fl (7.4-10.4); Monocytes Absolute Auto 0.4 K/mm3 (0.1-0.6); Monocytes Percent Auto 5.6 % (2.6-8.5); Neutrophils Absolute Auto 5.7 K/mm3 (1.3-6.7); Neutrophils Percent Auto 73.7 % (45.5-73.1); Platelet Count Result 144 k/mm3 (150-375); Red Blood Count 4.13 M/mm3 (4.6-6.20); Red Cell Distribution Width 12.8 % (11.5-14.5); White Blood Count 7.7 K/mm3 (4.5-10.0)
[2021-09-03 16:14] LABS: Alanine Aminotransferase 13 U/L (6-50); Albumin Level 4.1 g/dL (3.5-5.1); Alkaline Phosphatase 78 U/L (38-126); Anion Gap 11 mmol/L (8-16); Aspartate Amino Transferase 16 U/L (17-59); Bilirubin,Total 0.5 mg/dL (0.2-1.3); Blood Urea Nitrogen 18 mg/dL (9-20); Calcium 8.7 mg/dL (8.4-10.2); Carbon Dioxide 20 mmol/L (22-30); Chloride 109 mmol/L (98-107); Estimated CRCL calculation 56 ml/min; Estimated Glomerular Filt Rate 54; Glucose 144 mg/dL (65-110); Potassium 4.4 mmol/L (3.4-5.0); Sodium 140 mmol/L (137-145)
--- NOTE | 2021-09-03 17:06 | ED.GENADULT ---
HPI - General Adult General Chief complaint: Recheck/Abnormal Lab/Rx Stated complaint: cough - sent by PCP for abnormal CXR Time Seen by Provider: 09/03/21 17:06 Source: patient Related Data Home Medications Medication Instructions Recorded Confirmed acalabrutinib 100 mg capsule 100 mg PO Q12H 06/19/20 08/29/21 ([facility]) echinacea 400 mg capsule 400 mg PO HS 08/07/21 08/29/21 ferrous sulfate 325 mg (65 mg 325 mg PO HS 08/07/21 08/29/21 iron) tablet (Iron (ferrous sulfate)) hydralazine 25 mg tablet 25 mg PO HS 08/07/21 08/29/21 multivitamin 1 cap HS 08/07/21 08/29/21 nebivolol 20 mg tablet 20 mg PO HS 08/07/21 08/29/21 terazosin 10 mg capsule 10 mg PO HS 08/07/21 08/29/21 Allergies Allergy/AdvReac Type Severity Reaction Status Date / Time No Known Allergies Allergy Verified 09/03/21 15:08 [facility] Past Medical History Medical History (Updated 09/03/21 @ 19:44 by Aline Vizcaino MD) CLL (chronic lymphocytic leukemia) (~02/2019) Diabetes H/O hepatitis Hyperlipidemia Hypertension (Unknown) Obesity (BMI 30.0-34.9) Squamous cell carcinoma Surgical History Surgical History History of removal of Port-a-Cath 08/13/21 Family History Family History Father Alcoholism Rheumatoid arthritis Social History Social History Smoking status: Former smoker Tobacco type: cigars Second hand tobacco smoke exposure: No Smoking end date: 06/17/04 Alcohol intake: current Drinks per week: 4 Substance use: never Substance use type: does not use Gender identity (if verbalized by the patient): Male Sexual Orientation (if Verbalized by the Patient): Straight or Heterosexual Spiritual care concerns: No Course Vital Signs Vital signs: Vital Signs Temperature 37.1 C 09/03/21 15:14 Pulse Rate 66 09/03/21 15:14 Respiratory Rate 18 09/03/21 15:14 Blood Pressure 142/85 H 09/03/21 15:14 Pulse Oximetry 97 09/03/21 15:14 Oxygen Delivery Room Air 09/03/21 15:14 Temperature 37.1 C 09/03/21 15:14 Pulse Rate 66 09/03/21 15:14 Respiratory Rate 18 09/03/21 15:14 Blood Pressure 142/85 H 09/03/21 15:14 Pulse Oximetry 97 09/03/21 15:14 Oxygen Delivery Room Air 09/03/21 15:14 Medical Decision Making Vital Signs Vital Signs: Vital Signs Temperature 37.1 C 09/03/21 15:14 Pulse Rate 66 09/03/21 15:14 Respiratory Rate 18 09/03/21 15:14 Blood Pressure 142/85 H 09/03/21 15:14 Pulse Oximetry 97 09/03/21 15:14 Oxygen Delivery Room Air 09/03/21 15:14 Temperature 37.1 C 09/03/21 15:14 Pulse Rate 66 09/03/21 15:14 Respiratory Rate 18 09/03/21 15:14 Blood Pressure 142/85 H 09/03/21 15:14 Pulse Oximetry 97 09/03/21 15:14 Oxygen Delivery Room Air 09/03/21 15:14 Lab Data Result diagrams: 09/03/21 15:58 09/03/21 15:58 Labs: Lab Results 09/03/21 09/03/21 Range/Units 15:58 15:58 WBC 7.7 (4.5-10.0) K/mm3 RBC 4.13 L (4.6-6.20) M/mm3 Hgb 13.1 L (14.0-18.0) g/dL Hct 40.7 L (42.0-52.0) % MCV 98.5 (80-100) fl MCH 31.7 (26-34) pg MCHC 32.2 (32-36) g/dl RDW 12.8 (11.5-14.5) % Plt Count 144 L (150-375) k/mm3 MPV 11.2 H (7.4-10.4) fl Immature Gran % (Auto) 0.3 (0-0.5) % Neut % (Auto) 73.7 H (45.5-73.1) % Lymph % (Auto) 18.1 L (18.3-44.2) % [place] % (Auto) 5.6 (2.6-8.5) % Eos % (Auto) 1.9 (0-4.4) % Baso % (Auto) 0.4 (0.2-1.2) % Lymph # (Auto) 1.39 (0.9-3.2) K/mm3 [place] # (Auto) 0.4 (0.1-0.6) K/mm3 Eos # (Auto) 0.2 (0-0.3) K/mm3 Baso # (Auto) 0.0 (0.0-0.1) K/mm3 Abs Immat Gran (auto) 0.02 (0.00-0.031) K/mm3 Absolute Neuts (auto) 5.7 (1.3-6.7) K/mm3 Absolute Nucleated RBC 0.0 (0.0-0.012) K/mm3 Nucleated RBC % 0.0 (0.0-0.2) % % Immature Pl
[2021-09-03 17:39] LABS: Alveolar/Arterial O2 Gradient 30.3 mmHg; Base Excess ABG -3.4 mEq/l (+/-2.0); Device ROOM AIR; Fractional Inspired Oxygen 21 %; HCO3 ABG 21.6 mEq/l (22.0-26.0); Modified Allen's Test Pass; Oxygen Content ABG 17.9 %vol (16.0-22.0); Oxygen Saturation ABG 94.3 % (95.0-100.0); Oxyhemoglobin 93.4 % THb (90.0-100.0); PCO2 ABG 38.8 mmHg (35.0-45.0); PO2 FiO2 Ratio Arterial Blood 3.48 %; Site Drawn RIGHT RADIAL; Total Hemoglobin 13.6 g/dL (12.0-18.0); pH ABG 7.364 (7.350-7.450)
[2021-09-03 17:41] LABS: NT Pro B Type Natriuretic Pept 302 pg/mL (5-100); Troponin I < 0.012 ng/mL (0.000-0.034)
[2021-09-03 18:20] LABS: Lactic Acid Reflex 1.4 mmol/L (0.7-2.0)
[2021-09-03 18:22] LABS: INR 1.2; Prothrombin Time 14.3 Seconds (11.1-14.7)
[2021-09-03 18:23] LABS: Partial Thromboplastin Time 31.1 SECONDS (22.3-36.8)
[2021-09-03 18:24] LABS: CRP 0.9 mg/dL (<1.0)
--- NOTE | 2021-09-03 19:48 | PM.IMHP ---
H&P: HPI History of Present Illness Date/Time: 09/03/21 19:48 Chief Complaint: cough Narrative: This is a 75-year-old male with past medical history significant for recently diagnosed CLL, patient has undergone chemotherapy currently on immunomodulator. patient was sent to the emergency room after he presented to primary care physician's office and was noted that he had a persistent dry cough upon further questioning a has been present for the last several weeks is nonproductive, has had some shortness of breath associated with exertion, denies any fevers, rigors, chills, sputum production. chest x-ray showed a large left-sided pleural effusion. patient denies any weight loss, has had good appetite, no nausea, no vomiting, no diarrhea, no abdominal pain, no leg swelling, no PND, no orthopnea. Patient is been admitted for further evaluation management and treatment. Review of Systems Review of Systems: Dry persistent cough, large pleural effusion left-sided present on x-ray at primary care physician's office. Constitutional: Constitutional: Denies chills, Denies excessive sweating, Denies fatigue, Denies fever(s), Denies lethargy, Denies malaise, Denies night sweats, Denies weakness and Denies weight loss Eyes: Eyes: Denies change in vision ENT: Denies dysphagia, Denies vertigo, Denies dizziness and Denies odynophagia Cardiovascular: Cardiovascular: Denies chest pain, Denies syncope, Denies pedal edema, Denies irregular heart rhythm, Denies leg edema, Denies lightheadedness, Denies radiating jaw, neck or arm pain, Denies palpitations, Reports dyspnea on exertion, Denies orthopnea and Denies paroxysmal nocturnal dyspnea Respiratory: Respiratory: Denies chest congestion, Reports cough, Denies hemoptysis, Denies excessive phlegm production, Denies pain on inspiration, Denies pain with cough, Reports dyspnea on exertion and Denies wheezing Gastrointestinal: Gastrointestinal: Denies abdominal pain, Denies dyspepsia, Denies heartburn, Denies diarrhea, Denies nausea and Denies vomiting Genitourinary: Genitourinary: Denies dysuria Musculoskeletal: Musculoskeletal: Denies back pain, Denies joint swelling and Denies muscle weakness Integumentary/Breasts: Skin/Breast: Denies rash Neurologic: Denies vertigo, Denies dizziness, Denies syncope, Denies focal weakness and Denies Sensory deficit (Neuro) Psychiatric: Psychiatric: Reports no additional psychiatric complaints and Reports as per HPI Endocrine: Endocrine: Denies cold intolerance, Denies fatigue, Denies flushing, Denies heat intolerance, Denies polyphagia, Denies polydipsia and Denies palpitations Hematologic/Lymphatic: Hematologic/Lymphatic: Reports no additional hematologic/lymphatic complaints and Reports as per HPI Allergic/Immunologic: Allergic/Immunologic: Reports no additional allergic/immunologic complaints and Reports as per HPI PMFSH Past Medical History Medical History (Updated 09/04/21 @ 00:21 by Yael Samuel MD) CLL (chronic lymphocytic leukemia) (~02/2019) Diabetes H/O hepatitis Hyperlipidemia Hypertension (Unknown) Obesity (BMI 30.0-34.9) Squamous cell carcinoma Surgical History Surgical History History of removal of Port-a-Cath 08/13/21 Family History Family History Father Alcoholism Rheumatoid arthritis Social History Social History Smoking status: Never smoker Tobacco type: cigars Second hand tobacco smoke exposure: No Smoking end date: 06/17/04 Alcohol intake: current Drinks per week: 2 Substance use: never Substance use type: does not use Gender identity (if verbalized by the patient): Male Sexual Orientation (if Verbalized by the Patient): Straight or Heterosexual Spiritual care concerns: No Meds Home Medications and Allergies Home Medications
--- NOTE | 2021-09-03 21:07 | ADMGEN ---
This patient, Juan Diego Harris, was admitted to Medical Room 254-01 at 2100. Patient/family oriented to hospital policies and general routines including ID bracelet, bed and alarms, visiting hours, pain management, procedures, bathroom and other care routines, personal items, smoking policy, room service/diet, and visiting hours. Information on how to activate the Rapid Response Team has been discussed. Patient/Family are encouraged to report perceived risks to care and to ask questions if they do not understand what they are told or what they should do.
[2021-09-03] MEDS: FUROSEMIDE INJ 40 MG/4 ML VIAL IV PUSH (21:50)
--- NOTE | 2021-09-04 | ECHO_ITS ---
Patient Info Name: Juan Diego Harris Age: 75 years : 1945 Gender: Male Ht: 72 in Wt: 236 lbs BSA: 2.36 m2 HR: 53 bpm BP: 148 / 85 mmHg Heart Rhythm: Sinus Rhythm Technical Quality: Fair Exam Date: 09/04/2021 7:43 AM Exam Location: [facility] Patient Status: Inpatient Admit Date: 09/03/2021 Staff Ordering Physician: Yael Samuel MD Golf Ball Molder: Barbie Rojas RDCS Attending Provider: Yael Samuel MD Referring Physician: Lizzie BORGES; Exam Type: CA echo doppler color flow Study Info Indications - Pleural effusion Complete two-dimensional, color flow and Doppler transthoracic echocardiogram is performed. Summary 1. Complete two-dimensional, color flow and Doppler transthoracic echocardiogram is performed. 2. Normal LV size, moderate LVH, normal LV systolic function, ejection fraction 60-65%; grade 1 diastolic dysfunction. Normal mitral valve structure, no significant MR. Mild aortic valve calcification, mild aortic stenosis, max velocity 2.2 m/sec, mean gradient 8 mmHg. Mild aortic regurgitation. Trace TR, RVSP 28 mmHg. Trivial pericardial effusion. Large left pleural effusion. Left Ventricle Left ventricular chamber dimension is normal. Left ventricular systolic function is normal, estimated at 60-65%. There is moderately increased left ventricular wall thickness. The left ventricular diastolic function is grade I diastolic dysfunction. Right Ventricle Right ventricular chamber dimension is normal. Right ventricular systolic function is normal. Left Atria Left atrial chamber dimension is normal. Right Atria Right atrial chamber dimension is normal. Aortic Valve There is mild aortic valve stenosis with a peak velocity of 225 cm/s, mean gradient of 8 mmHg, and aortic valve area of 1.8 cm2. There is mild aortic valve regurgitation. There is mild aortic valve calcification. Pulmonic Valve The pulmonic valve is not well visualized. Mitral Valve The mitral valve has normal leaflets. Pericardium/Pleural There is trivial pericardial effusion. Aorta The aortic root size at the sinus of Valsalva is not well visualized. Left Ventricular Outflow Tract Name Value Normal LVOT 2D LVOT Diameter 2.1 cm LVOT Doppler LVOT Peak Gradient 6 mmHg LVOT Mean Gradient 3 mmHg LVOT VTI 24 cm LVOT VTI/AV VTI Ratio 0.5 LVOT Stroke Volume 82 ml LVOT CO 4.3 l/min LVOT CI 1.8 l/min/m2 Pulmonic Valve Name Value Normal RVOT Doppler RVOT Peak Gradient 2 mmHg PV Doppler PV Peak Gradient 4 mmHg Mi
[2021-09-04 05:20] VITALS: BP 148/85; PULSE 53; RESP 16; TEMP 36.5; O2SAT 97
--- NOTE | 2021-09-04 07:29 | PM.IMPN ---
Subjective Date/time seen: 09/04/21 07:29 Objective Data Vital Signs Vital Signs: Vital Signs - 24 hr 09/03/21 15:14 09/03/21 18:07 09/03/21 16:05 Temperature 98.8 F Pulse Rate 66 62 72 Respiratory Rate 18 18 21 H Blood Pressure 142/85 H 184/89 H Pulse Oximetry 97 96 96 Oxygen Delivery Room Air 09/03/21 16:15 09/03/21 16:16 09/03/21 16:30 Temperature Pulse Rate 61 61 69 Respiratory Rate 23 H 21 H 27 H Blood Pressure 163/90 H Pulse Oximetry 94 96 95 Oxygen Delivery 09/03/21 16:31 09/03/21 16:45 09/03/21 16:46 Temperature Pulse Rate 61 60 60 Respiratory Rate 22 H 25 H 22 H Blood Pressure 158/88 H 161/83 H Pulse Oximetry 96 94 95 Oxygen Delivery 09/03/21 17:00 09/03/21 17:01 09/03/21 17:15 Temperature Pulse Rate 59 L 60 59 L Respiratory Rate 24 H 23 H 24 H Blood Pressure 168/79 H Pulse Oximetry 93 95 93 Oxygen Delivery 09/03/21 17:16 09/03/21 17:30 09/03/21 17:31 Temperature Pulse Rate 60 59 L 60 Respiratory Rate 16 22 H 20 Blood Pressure 174/87 H 182/94 H Pulse Oximetry 95 96 95 Oxygen Delivery 09/03/21 19:03 09/03/21 19:15 09/03/21 19:30 Temperature Pulse Rate 61 56 L Respiratory Rate 28 H 21 H Blood Pressure Pulse Oximetry 95 93 92 Oxygen Delivery 09/03/21 19:31 09/03/21 20:19 09/03/21 21:17 Temperature 98.1 F Pulse Rate 58 L 58 L 55 L Respiratory Rate 18 19 16 Blood Pressure 197/86 H 229/80 H Pulse Oximetry 92 95 97 Oxygen Delivery 09/03/21 20:35 09/03/21 20:45 09/03/21 20:46 Temperature Pulse Rate 54 L 53 L 54 L Respiratory Rate 25 H 24 H 21 H Blood Pressure 180/82 H Pulse Oximetry 95 94 93 Oxygen Delivery 09/03/21 21:00 09/03/21 22:57 09/04/21 05:20 Temperature 99 F 97.7 F Pulse Rate 58 L 53 L Respiratory Rate 20 16 Blood Pressure 169/86 H 148/85 H Pulse Oximetry 95 97 Oxygen Delivery Room Air Intake/Output Intake/Output: Intake & Output 09/01/21 09/02/21 09/03/21 09/04/21 23:59 23:59 23:59 23:59 Intake Total 100 Output Total 600 1450 Balance -600 -1350 Meds/Results Medications: Active Medications Generic Name Dose Route Start Last Admin Trade Name Freq PRN Reason Stop Dose Admin Albuterol 2.5 mg 09/03/21 21:37 Albuterol Sulfate Neb 2.5 Mg/3 Ml Inh INHALATION Q6HRT PRN Shortness Of Breath Atorvastatin Calcium 10 mg 09/04/21 21:00 Atorvastatin 10 Mg Tablet PO HS AHSAN Enoxaparin Sodium 40 mg 09/04/21 09:00 Enoxaparin 40 Mg/0.4 Ml Syringe SUB-Q DAILY AHSAN Ferrous Sulfate 324 mg 09/04/21 21:00 Ferrous Sulfate 324 Mg Tablet PO HS AHSAN Furosemide 40 mg 09/04/21 09:00 Furosemide Inj 40 Mg/4 Ml Vial IV PUSH BID AHSAN Hydralazine HCl 25 mg 09/04/21 21:00 Hydralazine Hcl 25 Mg Tablet PO HS AHSAN Acetaminophen 650 mg in 65 mls @ 260 mls/hr 09/03/21 19:45 Ofirmev 650 Mg Ivpb IVPB 09/04/21 19:44 Q6H PRN Mild Pain (1-3) or Fever Losartan Potassium 50 mg 09/04/21 21:00 Losartan Potassium 50 Mg Tablet PO HS AHSAN Miscellaneous Information 0 each 09/03/21 00:01 Recommend Acetaminophen 1g Dose For Patients > 50 Kg XX 10/03/21 00:00 CLARIFY AHSAN Miscellaneous Information 0 each 09/03/21 00:01 Acalabrutinib [Calquence] 100 Mg Capsule Is Nonformulary - Can Patient Use From Home? XX 10/03/21 00:00 CLARIFY AHSAN Multivitamins Therapeutic 1 tablet 09/04/21 21:00 Multivitamins Therapeutic Tab (*Bkc) BY MOUTH HS AHSAN Nebivolol 20 mg 09/04/21 21:00 Nebivolol Hcl 5 Mg Tablet PO HS AHSAN Non-Formulary Medication 100 mg 09/03/21 21:30 Acalabrutinib [Calquence] PO 08/17/22 21:29 Q12H AHSAN Perflutren Lipid Microsphere 0 ml 09/03/21 22:06 Perflutren Lipid Microspheres 1.5 Ml Vial Diluted To 10 Ml Total Volume IV PUSH ONCE PRN adequate visualization Protocol Terazosin HCl 10 mg 09/04/21 21:00 Terazosin Hcl 5
[2021-09-04 07:44] LABS: Basophils Percent Auto 0.3 % (0.2-1.2); Eosinophils Absolute Auto 0.2 K/mm3 (0-0.3); Eosinophils Percent Auto 2.3 % (0-4.4); Hematocrit 40.5 % (42.0-52.0); Hemoglobin 13.5 g/dL (14.0-18.0); Immature Granulocyte Absolute 0.03 K/mm3 (0.00-0.031); Immature Granulocyte Percent A 0.4 % (0-0.5); Immature Platelet Fraction Pct 7.8 % (0.9-11.2); Lymphocytes Absolute Auto 1.19 K/mm3 (0.9-3.2); Lymphocytes Percent Auto 16.4 % (18.3-44.2); Mean Corpuscular HGB Conc 33.3 g/dl (32-36); Mean Platelet Volume 11.3 fl (7.4-10.4); Monocytes Absolute Auto 0.5 K/mm3 (0.1-0.6); Monocytes Percent Auto 6.8 % (2.6-8.5); Neutrophils Absolute Auto 5.3 K/mm3 (1.3-6.7); Neutrophils Percent Auto 73.8 % (45.5-73.1); Platelet Count Result 128 k/mm3 (150-375); Red Blood Count 4.22 M/mm3 (4.6-6.20); Red Cell Distribution Width 12.7 % (11.5-14.5); White Blood Count 7.2 K/mm3 (4.5-10.0)
[2021-09-04 07:47] LABS: Albumin Level 3.9 g/dL (3.5-5.1); Anion Gap 5 mmol/L (8-16); Blood Urea Nitrogen 21 mg/dL (9-20); Calcium 8.6 mg/dL (8.4-10.2); Carbon Dioxide 26 mmol/L (22-30); Chloride 109 mmol/L (98-107); Estimated CRCL calculation 56 ml/min; Estimated Glomerular Filt Rate 54; Glucose 152 mg/dL (65-110); Lactate Dehydrogenase 256 U/L (313-618); Potassium 4.8 mmol/L (3.4-5.0); Sodium 140 mmol/L (137-145)
[2021-09-04 08:26] LABS: INR 1.1
[2021-09-04] MEDS: FUROSEMIDE INJ 40 MG/4 ML VIAL IV PUSH (09:02)
--- NOTE | 2021-09-04 10:21 | PM.CNPUL ---
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 Renteria. most recent imaging on 08/04/2019 demonstrated improved and then normal mediastinal adenopathy with no left pleural effusion. Patient with 4-6 mohts worsenign dry cough and now large left pleural effusion (occupies 60% left hemithorax and normal right lung. he has no infectious complaints. He has a history of skin cancer status post resection in February of 2020 from the left leg and from May 2019 to the right forearm. Currently the patient is on room air with saturations 97% and in no respiratory distress. Agree with left lung thoracentesis with a full panel of chemistries, bacterial, AFB and fungal cultures, cytology including flow cytometry. I spoke with pathologist regarding the specimen and he agrees that flow cytometry for lymphoma is warranted. Discussed with Dr. Ca. Will follow with you. History of Present Illness History of Present Illness Consult date: 09/04/21 Chief complaint: large left pleural effusion Narrative: 09/04/2021: This is a new pulmonary consult for left pleural effusion. 75-year-old male with a history of B-cell CLL/S LL with a gain of MYC-8 Q diagnosed by right axillary lymph node biopsy on 02/19/2019. Patient is treated by Dr. Renteria, his oncologist, and last note on 07/31/2021 stated the patient finished 6 of 6 cycles with obinutuzumab and acalabrutinib and is maintained on acalabrutinib 100 [address] he had a [address] scan on 08/04/2019 that demonstrated decreased mediastinal, bilateral axillary, bilateral subpectoral lymph node size to normal and decreased splenomegaly. The patient was doing well on 07/31/2021 with plan to follow up in 6 months. The patient tells me that he developed a dry cough 4-6 months ago without any inciting events. He had no known pneumonia or trauma at that time. He states over the last 4-6 months this cough has gotten slightly worse. He states the cough is worse the 1st hour when he wakes up and when he lays down at night. He coughs approximately 1 time an hour throughout the day. He makes clear phlegm 1 time every 3-4 days. The cough is described as dry, no blood, no chest pain, no fever, no chills, no rigors. The patient states that over the last month he has noticed a slight worsening in his dyspnea on exertion. He used to be able to mow his lawn which takes him 1 hour without resting. Now he has to rest 3 times for approximately 5 minutes and then he continues. He has no limitations in his activities of daily living and said that he could walk at a slow pace an unlimited distance. The patient states that he was diagnosed with adult asthma 25 years ago but has never been hospitalized and never needed any inhaled medicines. He denies any wheezing. The patient denies any sinus congestion or postnasal drip. The patient denies any GERD, heartburn or acid taste in his mouth. The patient had skin cancer removed from his left leg in 2 areas in February of 2020 and his right forearm in May of 2021. All 3 areas he was told were cut out completely. Patient is a never smoker. Patient is exposed to secondhand smoke from his father and currently from his who smokes in a bedroom with an exhaust fan installed in that bedroom. 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 The patient called his primary doctor who performed a chest x-ray demonstrating a large left pleural effusion and he was sent to the emergency department on 09/03/[address] scan of the chest that demonstrated a large left pleural effusion with collapse of the le
[2021-09-04 12:10] VITALS: BP 118/75; PULSE 55; RESP 15; O2SAT 98
[2021-09-04 12:50] VITALS: BP 150/77; PULSE 58; RESP 15; O2SAT 97
[2021-09-04 14:26] LABS: pH Pleural Fluid 7.388 (7.210-7.500)
--- NOTE | 2021-09-04 15:00 | PM.DS ---
DS: Admitting Diagnosis Discharge Date 09/04/21 Admitting Diagnosis Left Pleural Effusion DS: Discharge Diagnosis Discharge Diagnosis (1) Pleural effusion on left: Code(s): J90 - Pleural effusion, not elsewhere classified Status: Acute Assessment and Plan: Patient underwent thoracentesis and had 1L of maroon fluid removed and sent for fluid studies. Patient discussed with Oncology, Dr. Renteria, who is the patient's oncologist. Dr. Renteria agrees to follow up with the patient in clinic and is ok with discharge. (2) Persistent dry cough: Code(s): R05.3 - Chronic cough Status: Acute Assessment and Plan: Likely secondary to large sided pleural effusion. Should improve now that the pleural effusion has been drained. Continue supportive care. (3) CLL (chronic lymphocytic leukemia): Onset Date: ~02/2019 Code(s): C91.10 - Chronic lymphocytic leukemia of B-cell type not having achieved remission Status: Resolved Assessment and Plan: Takes an immunomodulator and follows with Dr. Renteria. (4) Hypertension: Onset Date: Unknown Code(s): I10 - Essential (primary) hypertension Status: Acute Assessment and Plan: Will continue all home medications for discharge. DS: Summary Hospital Course Reason for hospitalization: Large left pleural effusion Hospital Course: 75M with a past medical history of CLL on immunomodulator s/p chemotherapy, hypertension and hyperlipidemia who presented to the emergency department with persistent dry cough and shortness of breath found to have a large left pleural effusion. Patient underwent thoracentesis and 1L of maroon fluid was removed. Patient had improvement of symptoms. Patient was discussed with his oncologist, Dr. Renteria, who agreed patient was ok for discharge and will follow up the studies sent on the fluid outpatient. Patient discharged to home with cytology and fluid studies pending. Time Spent with Patient Time attestation: Total time spent providing and/or coordinating discharge services: Exam Narrative: GENERAL: NAD, cooperative HEENT: Normocephalic, atraumatic, anicteric NECK: Supple CV: Normal S1, S2, RRR, No MRG RESP: CTAB, diminished breath sounds at L. base EXTREMITIES: Warm and well perfused, no clubbing, cyanosis. SKIN: warm, dry and intact. NEURO: CN 2-12 grossly intact. DS: Data Data Completed and Pending Pending studies at discharge: Pending at discharge 09/03/21 21:43 Cytology [PTH] Routine Labs on day of discharge: Labs from last 24 hours 09/04/21 09/04/21 09/04/21 13:00 13:00 13:00 WBC RBC Hgb Hct MCV MCH MCHC RDW Plt Count MPV Immature Gran % (Auto) Neut % (Auto) Lymph % (Auto) [place] % (Auto) Eos % (Auto) Baso % (Auto) Lymph # (Auto) [place] # (Auto) Eos # (Auto) Baso # (Auto) Abs Immat Gran (auto) Absolute Neuts (auto) Absolute Nucleated RBC Nucleated RBC % % Immature Plt Fraction PT INR APTT Puncture Site ABG pH ABG pCO2 ABG pO2 ABG PO2/FiO2 Ratio ABG HCO3 ABG O2 Saturation ABG O2 Content ABG Base Excess A-a Gradient Oxyhemoglobin Total Hemoglobin O2 Delivery Device O2 Liters/Min FiO2 Sodium Potassium Chloride Carbon Dioxide Anion Gap BUN Creatinine Estim Creat Clear Calc Estimated GFR Glucose Lactic Acid Calcium Total Bilirubin AST ALT Alkaline Phosphatase Lactate Dehydrogenase Troponin I C-Reactive Protein NT-Pro-B Natriuret Pep Total Protein Albumin Pleural Fluid Source Pending Pleural Color Pending Pleural Appearance Pending Pleural pH Pleural RBC Pending Pleural Nuc Cells Pending Pleural Total Protein Pending Pleural Albumin Cancelled Pending Pleural LDH Pending Pleural Glucose
[2021-09-04 17:05] LABS: Pleural fluid source Pleural fluid
[2021-09-04 17:06] LABS: Appearance Pleural Fluid Bloody (Clear); Color Pleural Fluid Red (Colorless); Lymphocytes Pleural Fluid 44 %; Macrophages Pleural Fluid 36 %; Mesothelial Cells Pleural Flui 2 %; Neutrophils Pleural Fluid 18 % (0-25); Nucleated Cell Pleural Fluid 1025 /uL (0-1000)
[2021-09-06 12:44] LABS: Glucose Pleural Fluid 148 mg/dL; LDH Pleural Fluid 125 U/L; Total Protein Pleural Fluid 3.9 g/dL
[2021-09-09 22:01] LABS: Albumin Pleural Fluid 3.1 g/dL
== END 2021-09-04 16:20 | disposition home or self-care (01) | DRG 841 ==
LOC: ANHED 19:44 → ANH2MED 21:45
PROVIDERS: Admitting Provider Internal Medicine; Emergency Provider Emergency Medicine; PCP Family Medicine; Visit Provider Family Medicine
DX: C91.10 Chronic lymphocytic leukemia of B-cell type not having achieved remission (principal); J91.0 Malignant pleural effusion; I10 Essential (primary) hypertension; E78.5 Hyperlipidemia, unspecified; E11.9 Type 2 diabetes mellitus without complications; E66.9 Obesity, unspecified; Z68.31 Body mass index [BMI] 31.0-31.9, adult; Z85.828 Personal history of other malignant neoplasm of skin; Z87.891 Personal history of nicotine dependence
CPT/HCPCS: 32555; 36415; 36600; 71250; 80048; 80053; 82040; 82042; 82805; 82945; 83605; 83615; 83880; 83986; 84155; 84157; 84484; 85025; 85055; 85610; 85730; 86140; 87015; 87040; 87070; 87075; 87102; 87116; 87205; 87206; 88108; 88184; 88185; 88305; 88342; 89051; 93005; 93306; 99285; J1940

== ENCOUNTER 2021-09-13 12:02 | Outpatient (CLI) | payer MEDICARE, OTHER, SELFPAY ==
--- NOTE | ~2021-09-13 | PE_ITS ---
EXAMINATION: PET skull to mid thigh DATE: 09/13/2021 13:53 INDICATION: Lymphoma, small lymphocytic TECHNIQUE: Blood glucose level was 132 mg/dL. 10.701 mCi of 18-fluorodeoxyglucose (18-FDG) was admini stered i.v. Low dose computed tomography (CT) images were acquired from the base of the brain to the proximal thighs for attenuation correction and anatomic localization. Positron emission tomography (P ET) images were acquired in the same distribution beginning 62 minutes after injection. The dose-sylvain th product (DLP) was 1166.74 mGy-cm. COMPARISON: None FINDINGS: Head/neck: No abnormal FDG uptake is identified. Mild FDG uptake in the oral cavity and vocal cords w ithout suspicious CT correlate is likely physiologic. Chest: There is a large left pleural effusion. There is passive atelectasis in much of the left lower lobe. There is a 2.1 x 1.1 cm nodule in the right upper lobe with low level FDG uptake. No pneumotho rax is identified. No pathologically enlarged thoracic lymph nodes are identified. The heart size is normal. Abdomen/pelvis/proximal thighs: Physiologic FDG activity is present in the bowel and urinary tract. N o abnormal FDG uptake is identified. Punctate calcifications in an otherwise normal spleen likely rep resent healed granulomatous disease. The liver, pancreas, gallbladder are normal. Bilateral adrenal a denomas are noted. The kidneys are unremarkable. There is calcified atherosclerosis of the aorta and many of the other arteries. No pathologically enlarged abdominal or pelvic lymph nodes are identified . There is no free intraperitoneal gas or evidence of bowel obstruction. Colonic diverticulosis is pr esent without evidence of diverticulitis. Musculoskeletal: No abnormal FDG uptake is identified. There is severe cervical and lumbar spondylosi s and moderate thoracic spondylosis. IMPRESSION: 1. No lymphadenopathy identified. 2. Large left pleural effusion with passive atelectasis in the left lower lobe. 3. Right upper lobe nodule with low-level FDG uptake, likely infectious or inflammatory. Reviewed, dictated and finalized at location L. IMPRESSION: 1. No lymphadenopathy identified. 2. Large left pleural effusion with passive atelectasis in the left lower lobe. 3. Right upper lobe nodule with low-level FDG uptake, likely infectious or infl ammatory.
[2021-09-13 12:21] LABS: Glucose Point of Care 132 mg/dl (65-105)
== END 2021-09-13 12:03 | disposition home or self-care (01) ==
PROVIDERS: PCP Family Medicine; Visit Provider Internal Medicine Hematology & Oncology
DX: C83.00 Small cell B-cell lymphoma, unspecified site (principal); J90 Pleural effusion, not elsewhere classified
CPT/HCPCS: 78815; A9552

== ENCOUNTER 2021-09-26 01:31 | Day surgery (SDC) | payer MEDICARE, OTHER, SELFPAY ==
--- NOTE | 2021-09-24 14:51 | PC.NURSE ---
Report to the Outpatient Waiting Room, entrance under the green pavilion located off [facility], at time __1200 on date __09/26/21 . OR Time: _1400 . - You and your visitor will be asked a series of questions to screen for COVID 19 for your protection. - Only one visitor is allowed at this time. - The patient visitor is requested to leave or wait in car when not with patient. - A mask is required within the hospital. Patients may have clear liquids (water, carbonated beverages, clear teas, apple juice) until 3 hours prior to surgery with a maximum of 20 ounces. - No food from midnight until time of surgery - Infants may have breast milk until 4 hours before surgery, infant formula 6 hours prior to surgery. - Children will be allowed to drink immediately following surgery. If applicable, please bring a bottle or sippy cup to assist with drinking. Juice, water, soda, and popsicles are readily available. For infants on formula, please bring formula the day of surgery. Pacifiers are allowed. Take the following medications with a SIP of water the morning of surgery: NONE Medications to discontinue per physician ALL VITAMINS AND SUPPLEMENTS 3 DAYS PRE OP Date to take last dose___09/23/21 Please no make-up, nail israeli, hairspray, perfume, deodorant, or body powder the day of surgery. No jewelry (including any body piercings) or valuables the day of surgery, leave them at home. Please take a shower or bath the night before, or the morning of, surgery with an antibacterial soap. Wear comfortable, loose fitting clothing. Children are encouraged to wear pajamas. - Jewelry must be removed prior to entering the operating room. Rings and piercings that are not removed may be cut off. - The hospital will not accept responsibility for valuables. - Please leave all valuables, including medications, at home the day of surgery. If you are going home after surgery, a licensed driver medic must drive you home. - NO public transportation without another adult. - We recommend that an adult stay with you for 24 hours following discharge. - We also recommend that you do not drive, make important decision, drink alcoholic beverages, or take any drugs that were not prescribed by your health care provider for at least 24 hours after your discharge time. For Pediatric surgeries, we recommend two adults accompany the child home (only one inside the building at this time). Follow any additional instructions given to you from your surgeon. If you or anyone in your household have experienced Covid symptoms in the past week, please notify your surgeon or the nurse liaison at the phone number below for possible testing. Telephone instructions given to __PATIENT and asked if any additional questions and then verbalized understanding. Patient advised to call surgeon office or pre surgery nurse liaison [phone] if any additional questions.
[2021-09-24 15:10] VITALS: BMI 31.1
--- NOTE | ~2021-09-26 | XR_ITS ---
EXAMINATION: XR chest port-a-cath/central Exam Date/Time: 09/26/2021 13:30 CDT HISTORY: INSERT KRYSTAL CATH Comparison: 09/03/2021. RESULT: Lines, tubes, and devices: Left implanted port terminating at the cavoatrial junction. Lungs and pleura: Near-complete opacification of the left hemithorax. Cardiomediastinal silhouette: Stable. Other: No acute osseous or upper abdominal finding. IMPRESSION: New left implanted port, in good position. Large left pleural effusion. Reviewed, dictated and finalized at location K.
--- NOTE | ~2021-09-26 | XR_ITS ---
EXAMINATION: XR fl guide central line place DATE: 09/26/2021 13:10 CDT INDICATION: INSERT KRYSTAL CATH . TECHNIQUE: 2 fluoroscopic images of the chest were obtained during Port-A-Cath placement performed by the surgeon. I was not present in the operating room. Fluoroscopy exposure time was 51.8 seconds. Cu mulative dose was 12.65 mGy. COMPARISON: X-ray chest 09/04/2021 FINDINGS: Large left pleural effusion. Left chest implanted port, terminating at the cavoatrial junction. IMPRESSION: Fluoroscopic documentation of Port-A-Cath placement. Please refer to the operative note for complete procedural details . Reviewed, dictated and finalized at location K. IMPRESSION: Fluoroscopic documentation of Port-A-Cath placement. Please refer to the operat nichol note for complete procedural details .
--- NOTE | 2021-09-26 10:53 | WPDANESEPPF ---
Anes - Initial Pre Proc Eval Procedure: Operation Date: 09/26/21 13:00 Proposed Procedures p Insertion Katia Cath - Irish Carcamo MD Date/Time: 09/26/21 10:53 Surgeon: Irish Carcamo MD Pre Op Diagnosis: lymphoma Patient Data Age: 75 Gender: M Height: 1.83 m Weight: 104.35 kg Allergies Allergy/AdvReac Type Severity Reaction Status Date / Time No Known Allergies Allergy Verified 09/26/21 11:32 Home Medications Medication Instructions Recorded Confirmed Type acalabrutinib 100 mg capsule 100 mg PO Q12H 06/19/20 09/26/21 History (Calquence) atorvastatin 10 mg tablet 10 mg PO HS #30 tabs 05/01/21 09/26/21 Rx echinacea 400 mg capsule 400 mg PO HS 08/07/21 09/26/21 History ferrous sulfate 325 mg (65 mg 325 mg PO HS 08/07/21 09/26/21 History iron) tablet (Iron (ferrous sulfate)) multivitamin 1 cap HS 08/07/21 09/26/21 History nebivolol 20 mg tablet 20 mg PO HS 08/07/21 09/26/21 History terazosin 10 mg capsule 10 mg PO HS 08/07/21 09/26/21 History losartan 50 mg tablet 50 mg PO HS #90 tabs 08/22/21 09/26/21 Rx hydralazine 25 mg tablet 25 mg PO HS #30 tabs 09/19/21 09/26/21 Rx Patient hx anesthesia problems: none Family hx anesthesia problems: none Results Review: All pre-operative results and documents have been reviewed as part of the pre-operative evaluation. [facility] Past Medical History Medical History (Updated 09/20/21 @ 17:34 by Familia Renteria MD) CLL (chronic lymphocytic leukemia) (~02/2019) Diabetes H/O hepatitis Hyperlipidemia Hypertension (Unknown) Obesity (BMI 30.0-34.9) Squamous cell carcinoma Surgical History Surgical History History of removal of Port-a-Cath 08/13/21 Family History Family History Father Alcoholism Rheumatoid arthritis Social History Social History Smoking status: Never smoker Tobacco type: cigars Second hand tobacco smoke exposure: No Smoking end date: 06/17/04 Alcohol intake: current Drinks per week: 2 Substance use: never Substance use type: does not use Living arrangements: with family Gender identity (if verbalized by the patient): Male Sexual Orientation (if Verbalized by the Patient): Straight or Heterosexual Spiritual care concerns: No Anes - Eval Final PreProcedure Day of Procedure 09/26/21 10:53 Patient weight: obese Heart: regular rate and rhythm Lungs: clear to auscultation Airway: Mallampati scale class II Neurological: alert and oriented Last oral intake: >/= 8 hours ASA classification: III Emergent: no Anesthetic plan: proceed Anesthesia type and monitoring: general GIVS and standard monitoring Results Review: All pre-operative results and documents have been reviewed as part of the pre-operative evaluation. Informed Consent: The patient's anesthetic plan and its attendant risks and benefits were discussed with the patient/family/POA. Questions were solicited and answers provided to the satisfaction of the patient/family/POA.
[2021-09-26 11:20] VITALS: BP 159/81; PULSE 60; RESP 16; TEMP 36.1; O2SAT 100
[2021-09-26] MEDS: KETOROLAC 15 MG/ML VIAL (*BKC) IV PUSH (11:44)
[2021-09-26] MEDS: LACTATED RINGERS 1,000 ML 30 ML IV CONT (11:46)
--- NOTE | 2021-09-26 12:26 | PM.IMHP ---
H&P: HPI History of Present Illness Date/Time: 09/26/21 12:26 Chief Complaint: lymphoma Narrative: Pt here for VAD placement for access for chemo secondary to recurrent lymphoma. The pt had previous R sided VAD recently removed. Pt reports no current plans for radiation and is R handed. Review of Systems Review of Systems: All systems reviewed & are unremarkable except as noted in HPI and below PMFSH Past Medical History Medical History CLL (chronic lymphocytic leukemia) (~02/2019) Diabetes H/O hepatitis Hyperlipidemia Hypertension (Unknown) Obesity (BMI 30.0-34.9) Squamous cell carcinoma Surgical History Surgical History History of removal of Port-a-Cath 08/13/21 Family History Family History Father Alcoholism Rheumatoid arthritis Social History Social History Smoking status: Never smoker Tobacco type: cigars Second hand tobacco smoke exposure: No Smoking end date: 06/17/04 Alcohol intake: current Drinks per week: 2 Substance use: never Substance use type: does not use Living arrangements: with family Gender identity (if verbalized by the patient): Male Sexual Orientation (if Verbalized by the Patient): Straight or Heterosexual Spiritual care concerns: No Meds Home Medications and Allergies Home Medications Medication Instructions Recorded Confirmed Type acalabrutinib 100 mg capsule 100 mg PO Q12H 06/19/20 09/26/21 History (Calquence) atorvastatin 10 mg tablet 10 mg PO HS #30 tabs 05/01/21 09/26/21 Rx echinacea 400 mg capsule 400 mg PO HS 08/07/21 09/26/21 History ferrous sulfate 325 mg (65 mg 325 mg PO HS 08/07/21 09/26/21 History iron) tablet (Iron (ferrous sulfate)) multivitamin 1 cap HS 08/07/21 09/26/21 History nebivolol 20 mg tablet 20 mg PO HS 08/07/21 09/26/21 History terazosin 10 mg capsule 10 mg PO HS 08/07/21 09/26/21 History losartan 50 mg tablet 50 mg PO HS #90 tabs 08/22/21 09/26/21 Rx hydralazine 25 mg tablet 25 mg PO HS #30 tabs 09/19/21 09/26/21 Rx Allergies Allergy/AdvReac Type Severity Reaction Status Date / Time No Known Allergies Allergy Verified 09/26/21 11:32 Vital Signs Vital Signs - 24 hr 09/26/21 11:20 Temperature 36.1 C L Pulse Rate 60 Respiratory Rate 16 Blood Pressure 159/81 H Pulse Oximetry 100 Oxygen Delivery Room Air Exam Const: General: cooperative, comfortable and no acute distress Chest: Chest palpation & inspection: normal inspection of the chest Resp: Effort & Inspection: normal respiratory effort Auscultation: diminished lung sounds Cardio: Rate: regular rate Rhythm: regular rhythm GI: Inspection: normal to inspection Assessment and Plan Assessment and plan (1) Small lymphocytic lymphoma: Code(s): C83.00 - Small cell B-cell lymphoma, unspecified site Status: Acute Assessment and Plan: will place VAD for chemo access, will attempt L sided placement
--- NOTE | 2021-09-26 12:29 | WPDHPUPDATE1 ---
History and Physical Update Update Date/Time: 09/26/21 12:29 History and Physical has been reviewed, including an updated exam of the patient. There are NO changes in the patient's condition. Risks, benefits, and alternatives have been discussed and questions answered. Patient agrees to proceed with procedure.
[2021-09-26] MEDS: ceFAZolin 2 GM/D5W 50 ML 2 GM/50 ML BAG IVPB (12:48)
[2021-09-26] MEDS: BUPIVACAINE/EPINEPHRINE 0.25% 50 ML VIAL INFILTRATE (13:12)
[2021-09-26] MEDS: HEPARIN SODIUM, PORCINE 10,000 UNITS/10 ML VIAL 5000 UNITS IRRIGATION (13:18)
[2021-09-26] MEDS: HEPARIN SODIUM, PORCINE 10,000 UNITS/10 ML VIAL 10000 UNITS IV PUSH (13:23)
--- NOTE | 2021-09-26 13:32 | W.PM.PROC2 ---
Procedure Note - Detailed Date of Procedure 09/26/21 Pre-op Diagnosis lymphoma Post-op Diagnosis Same Procedure Performed placement of left subclavian venous access device under fluoroscopic guidance Surgeon Irish Carcamo MD Anesthesia MAC and Local Indications 75-year-old male with recurrent lymphoma requiring chemotherapy Findings first stick L SCV Description of Procedure Patient was brought into the operating room and placed in the supine position. After adequate induction of mac anesthesia, the patient was prepped and draped in normal sterile fashion. Time-out was then done to verify the patient's identity, as well as the procedure being performed. I began by making a small incision in the left chest, I then gained access into the left subclavian vein with an 18 gauge needle. I then placed the guidewire into the vein and confirmed placement via fluoroscopic guidance. I then locally anesthetized the area in the left chest. I then enlarged the incision around the guidewire including making a subcutaneous pocket inferiorly to allow placement of the port itself. I then placed a dilating sheath over the guidewire into the left subclavian vein via sterile Seldinger technique. This was once again done and confirmed via fluoroscopic guidance. I then removed the dilator and the guidewire, now just leaving the sheath in the vein. I then fed the previously flushed catheter into the left subclavian vein under fluoroscopic guidance. At approximately 25 cm, the catheter was noted to be near the atrial caval junction. I then peeled away the sheath, now just leaving the catheter in the vein. I then was able to easily draw and flush from the catheter. The catheter was cut to fit and attached to the port itself. The port was placed into the previously made subcutaneous pocket and sutured in with 0 Ethibond suture. Final fluoroscopic view showed the termination of the catheter at the atrial caval junction with a nice smooth curvature back to the port itself. I was able to gain access to the port with a Bob needle and was able to easily draw and flush from the port. I then flushed 4 cc of a final heparin flush into the port. The incision was closed with 3 0 Vicryl suture in the subcutaneous tissue and the skin was closed with 4 O Monocryl subcuticular suture. Dermabond was then placed on wound. The patient tolerated the procedure well and will be sent to the recovery room in stable condition. Implants L SCV VAD Estimated Blood Loss 5 Drains No Packing No Pathology None sent Complications No immediate complications Condition Stable Disposition PACU [facility] Billing Surgery - Charge Forward: Surgery Billing
[2021-09-26 13:37] VITALS: BP 145/79; PULSE 85; RESP 16; O2SAT 97
[2021-09-26 14:07] VITALS: BP 162/77; PULSE 52; RESP 16
[2021-09-26 14:40] VITALS: BP 156/82; PULSE 52; RESP 16
== END 2021-09-26 14:53 | disposition home or self-care (01) ==
PROVIDERS: PCP Family Medicine; Visit Provider Surgery
PROC: (CPT 36561; principal; 2021-09-26 13:00)
DX: C83.00 Small cell B-cell lymphoma, unspecified site (principal); I10 Essential (primary) hypertension; E78.5 Hyperlipidemia, unspecified; E11.9 Type 2 diabetes mellitus without complications; Z86.19 Personal history of other infectious and parasitic diseases; Z87.891 Personal history of nicotine dependence; E66.9 Obesity, unspecified; Z68.30 Body mass index [BMI] 30.0-30.9, adult
CPT/HCPCS: 36561; 77001; C1788; J0690; J1644; J1885; J2704; J3010; J7120

== ENCOUNTER 2022-04-10 11:02 | Outpatient (CLI) | payer MEDICARE, OTHER, SELFPAY ==
--- NOTE | ~2022-04-10 | CT_ITS ---
Clinical Indication: Lymphoma CT Scan of the Chest with Contrast: Technique: Contiguous sections were acquired throughout the chest after intravenous administration of 75 cc of Omnipaque 350. Dose reduction technique was used on this scan by utilizing automated exposu re control and iterative reconstruction technique. The dose-length product (DLP) was 382.41 mGy-cm. COMPARISON: 09/03/2021 Findings: There is no evidence of any significant mediastinal, hilar or axillary lymphadenopathy. No large cent ral pulmonary embolus seen. There is no evidence of aortic dissection or aneurysm. Coronary artery ca lcifications are present. No pericardial effusion. No right pleural effusion. Small to moderate left pleural effusion is present, decreased from prior e xam. There is probable chronic left basilar atelectatic change. There patchy areas of mild groundglas s opacity and peripheral interstitial thickening bilaterally. The lungs are clear. No pulmonary nodules or infiltrates are noted. Images through the upper abdomen reveal stable probable diffuse enlargement of the left adrenal gland . Impression: Patchy areas of bilateral groundglass opacity and interstitial thickening. Correlate for pulmonary ed kaycee, atypical infection, or possibly drug toxicity/post therapy changes. Small to moderate left pleural effusion, decreased from prior exam. No pathologic lymphadenopathy evident on this exam. Stable diffuse enlargement of the left adrenal gland. Consider adrenal hyperplasia. Reviewed, dictated and finalized at location . 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 Chucho elate for pulmonary edema, atypical infection, or possibly drug toxicity/post t herapy changes. Small to moderate left pleural effusion, decreased from prior exam. No pathologic lymphadenopathy evident on this exam. Stable diffuse enlargement of the left adrenal gland. Consider adrenal hyperpla stephen.
== END 2022-04-10 11:03 | disposition home or self-care (01) ==
LOC: ANHIMG 11:06
PROVIDERS: PCP Family Medicine; Visit Provider Internal Medicine Hematology & Oncology
DX: C83.00 Small cell B-cell lymphoma, unspecified site (principal); J90 Pleural effusion, not elsewhere classified; R91.8 Other nonspecific abnormal finding of lung field
CPT/HCPCS: 71260; Q9967

== ENCOUNTER 2022-07-17 08:53 | Outpatient (CLI) | payer MEDICARE, OTHER, SELFPAY ==
--- NOTE | ~2022-07-17 | CT_ITS ---
Clinical Indication: CLL CT Scan of the Chest with Contrast: Technique: Contiguous sections were acquired throughout the chest after intravenous administration of 75 cc of Omnipaque 350. Dose reduction technique was used on this scan by utilizing automated exposu re control and iterative reconstruction technique. The dose-length product (DLP) was 534.39 mGy-cm. COMPARISON: 04/10/2022 Findings: There is no evidence of any significant mediastinal, hilar or axillary lymphadenopathy. There is no f illing defect in the pulmonary arterial tree to suggest pulmonary embolus. There is no evidence of ao rtic dissection or aneurysm. Coronary artery calcifications are present. No pericardial effusion. Small left basilar pleural effusion is present, similar to mildly decreased from prior exam. There is chronic left basilar atelectasis. There is additional mild bibasilar scarring, similar to prior exam . Images through the upper abdomen reveal stable prominent appearance of both adrenal glands. Impression: No pathologic lymphadenopathy seen. Small left basilar pleural effusion, similar to mildly decreased from prior exam. Chronic left basilar atelectasis and bibasilar scarring. Stable prominent appearance of both adrenal glands. Reviewed, dictated and finalized at location M. Impression: No pathologic lymphadenopathy seen. Small left basilar pleural effusion, similar to mildly decreased from prior exa m. Chronic left basilar atelectasis and bibasilar scarring. Stable prominent appearance of both adrenal glands.
[2022-07-17 09:27] LABS: Estimated Glomerular Filt Rate 49
== END 2022-07-17 08:54 | disposition home or self-care (01) ==
PROVIDERS: PCP Family Medicine; Visit Provider Internal Medicine Hematology & Oncology
DX: C91.10 Chronic lymphocytic leukemia of B-cell type not having achieved remission (principal); R91.8 Other nonspecific abnormal finding of lung field
CPT/HCPCS: 71260; Q9967

== ENCOUNTER 2023-01-27 09:01 | Outpatient (CLI) | payer MEDICARE, OTHER, SELFPAY ==
--- NOTE | ~2023-01-27 | CT_ITS ---
Clinical Indication: CLL CT Scan of the Chest with Contrast: Technique: Contiguous sections were acquired throughout the chest after intravenous administration of 75 cc of Omnipaque 350. Dose reduction technique was used on this scan by utilizing automated exposu re control and iterative reconstruction technique. The dose-length product (DLP) was 728.82 mGy-cm. COMPARISON: 07/17/2022 Findings: There is no evidence of any significant mediastinal, hilar or axillary lymphadenopathy. There is no f illing defect in the pulmonary arterial tree to suggest pulmonary embolus. There is no evidence of ao rtic dissection or aneurysm. There is minimal left basilar pleural effusion with associated mild left basilar atelectatic change. Probable minimal right pleural fluid. Right lung clear. There is minimal scarring in the left lung. Images through the upper abdomen reveal stable bilateral adrenal nodules. Impression: Minimal pleural effusions with mild left basilar atelectatic change, and probable minimal left lung s carring. Stable bilateral adrenal nodules. Reviewed, dictated and finalized at location . 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 Stable bilateral adrenal nodules.
[2023-01-27 09:51] LABS: Estimated Glomerular Filt Rate 46
== END 2023-01-27 09:02 | disposition home or self-care (01) ==
PROVIDERS: PCP Family Medicine; Visit Provider Internal Medicine Hematology & Oncology
DX: C91.10 Chronic lymphocytic leukemia of B-cell type not having achieved remission (principal); D35.01 Benign neoplasm of right adrenal gland; D35.02 Benign neoplasm of left adrenal gland
CPT/HCPCS: 71260; Q9967

== ENCOUNTER 2023-10-28 09:13 | Outpatient (CLI) | payer MEDICARE, OTHER, SELFPAY ==
--- NOTE | ~2023-10-28 | CT_ITS ---
EXAMINATION: CT soft tissue neck w con DATE: 10/28/2023 10:15 INDICATION: Localized swelling, mass and lump, neck. TECHNIQUE: Computed tomography (CT) of the neck was performed with 75 mL Omnipaque-350 intravenous co ntrast. Automated exposure control and iterative reconstruction technique were employed. The dose-panda gth product was 480.79 mGy-cm. COMPARISON: PET/CT 09/13/2021, 01/27/23 FINDINGS: There is mucosal thickening involving the pharynx. There is extensive bilateral cervical ly mphadenopathy. For example, a left high internal jugular chain node measures 3.4 x 2.7 cm. Partially visualized is a left internal jugular port. There is plaque in the proximal internal carotid arteries with 0% stenosis relative to normal distal artery lumen diameter. There is mild mucosal thickening i n the paranasal sinuses. There is a small right mastoid effusion. There is a left otomastoid effusion . There is severe cervical spondylosis. IMPRESSION: 1. Extensive cervical lymphadenopathy, worsened from 01/27/2023, consistent with lymphoma versus meta static disease. 2. Mucosal thickening in the pharynx, which may be inflammation. Malignancy such as squamous cell car cinoma is not excluded. Reviewed, dictated and finalized at location A. IMPRESSION: 1. Extensive cervical lymphadenopathy, worsened from 01/27/2023, consistent wit h lymphoma versus metastatic disease. 2. Mucosal thickening in the pharynx, which may be inflammation. Malignancy suc h as squamous cell carcinoma is not excluded.
[2023-10-28 10:00] LABS: Estimated Glomerular Filt Rate 42
== END 2023-10-28 09:14 | disposition home or self-care (01) ==
LOC: MICIMG 09:14
PROVIDERS: PCP Family Medicine; Visit Provider Student in an Organized Health Care Education/Training Program
DX: R59.0 Localized enlarged lymph nodes (principal)
CPT/HCPCS: 70491; Q9967

== ENCOUNTER 2023-11-14 13:55 | Outpatient (CLI) | payer MEDICARE, OTHER, SELFPAY ==
[2023-11-14 15:14] LABS: Influenza A QL RT-PCR Negative (Negative); Influenza B QL RT-PCR Negative (Negative); RSV RNA, RT-PCR Negative (Negative); SARS-CoV-2 RNA PCR Negative (Negative)
== END 2023-11-14 13:56 | disposition home or self-care (01) ==
LOC: ANHLAB 13:56
PROVIDERS: PCP Family Medicine; Visit Provider Family Medicine
DX: J06.9 Acute upper respiratory infection, unspecified (principal); Z20.822 Contact with and (suspected) exposure to COVID-19
CPT/HCPCS: 87637

== ENCOUNTER 2023-11-18 09:38 | Outpatient (CLI) | payer MEDICARE, OTHER, SELFPAY ==
--- NOTE | ~2023-11-18 | PE_ITS ---
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 9.586 mCi of 18-fluorodeoxyglucose (18-FDG) was administ ered i.v. Low dose computed tomography (CT) images were acquired from the base of the brain to the pr oximal thighs for attenuation correction and anatomic localization. Positron emission tomography (PET ) images were acquired in the same distribution beginning 57 minutes after injection. Images includin g fused PET/CT images were reconstructed in axial, coronal, and sagittal planes. Automated exposure c ontrol technique was employed. The dose-length product was 1276.93mGy-cm. COMPARISON: 09/13/2021 FINDINGS: Head/neck: There is symmetric increased activity in the oral cavity, palatine tonsils, laryngeal muscles and oc ular muscles without CT correlate, likely physiologic. There are multiple enlarged and normal-sized F DG avid bilateral cervical lymph nodes which include intraparotid, submandibular, jugular chain, supr aclavicular and posterior cervical triangle lymph nodes. For reference one of the larger lymph nodes in the left submandibular region measures 2.9 x 2.3 cm with maximal SUV of 6.4. There are also smalle r and more intensely FDG avid lymph nodes such as a right parotid lymph node measuring 1.7 x 1.2 cm w ith maximal SUV of 15.7. There is also a 3.4 x 2.5 cm likely cystic lesion or centrally necrotic mass along the left internal jugular chain with low but greater than simple fluid attenuation centimeters low-attenuation and associated photopenic defect. This lesion appears new since the prior PET/CT and is increased in size from the neck CT from 3 weeks prior at which time it measured 1.4 x 1.1 cm. Chest: Left subclavian central venous port catheter with distal tip at the superior cavoatrial junction. Claudia y small left pleural effusion. There is bibasilar atelectasis most prominent in the left lower lobe w here it includes chronic peripheral round atelectasis with associated volume loss, architectural dist ortion and small calcified pleural plaque. There is a new 1.5 x 0.9 cm left lower lobe nodule with ma ximal SUV of 10.1. Cardiomegaly. Atherosclerotic coronary artery calcific location. No pericardial ef fusion. Thoracic aorta is normal in caliber. There are multiple FDG avid mediastinal, bilateral hilar and bilateral axillary lymph nodes. The majority are normal in size with a few mildly enlarged media stinal lymph nodes. The largest in the inferior right paratracheal region measures 1.8 x 1.5 cm with maximal SUV of 5.5. The most intense uptake associated with a left hilar lymph node with maximal SUV of 10.1 which is unable to be distinguished from the adjacent hilar vasculature on noncontrast imagin g. Abdomen/pelvis/proximal thighs: Physiologic renal accumulation and excretion of FDG activity in the kidneys, bladder and along portio ns of ureters. Prostatomegaly with approximately 1 cm focus of mild relatively increased FDG activity at the right posterior prostate with maximal SUV of 4.4. Normal degree and heterogenous pattern of i ncreased uptake throughout the liver without radiologic correlate or dominant FDG avid lesion. The ga llbladder, pancreas, spleen and right adrenal glands are normal. Chronic 2.5 x 1.5 cm left adrenal no dule without increased FDG uptake most likely an adenoma. Mild uptake scattered throughout the bowels without radiologic correlate, also likely physiologic. There are multiple FDG avid lymph nodes in th e abdomen and pelvis predominantly in the the retroperitoneum along the aorta and bilateral iliac angelica ins with a few small mildly FDG avid lymph nodes at the dereje hepatis. There are also a few bilateral normal sized and mildly enlarged FDG avid bilateral inguinal lymph nodes. For reference the largest lymph node is along the right external iliac chain measuring 3.8 x 2.0 cm wit
[2023-11-18 09:54] LABS: Glucose Point of Care 189 mg/dl (65-105)
== END 2023-11-18 09:39 | disposition home or self-care (01) ==
LOC: ANHIMG 09:40
PROVIDERS: PCP Family Medicine; Visit Provider Family Medicine
DX: C91.10 Chronic lymphocytic leukemia of B-cell type not having achieved remission (principal); R59.0 Localized enlarged lymph nodes; N40.0 Benign prostatic hyperplasia without lower urinary tract symptoms
CPT/HCPCS: 78815; A9552

== ENCOUNTER 2024-02-10 07:36 | Outpatient (RCR) | payer MEDICARE, OTHER, SELFPAY ==
[2024-02-10 08:15] VITALS: BMI 30.7
[2024-02-10 08:49] VITALS: TEMP 36.4
[2024-02-10] MEDS: ACETAMINOPHEN 325 MG TABLET 650 MG PO (08:49)
[2024-02-10] MEDS: diphenhydrAMINE HCl CAP 25 MG CAPSULE PO (08:50)
[2024-02-10 08:51] VITALS: BP 99/56; PULSE 89; RESP 15; TEMP 36.4; O2SAT 95
[2024-02-10 09:08] VITALS: BP 117/65; PULSE 88; RESP 14; TEMP 36.7; O2SAT 95
[2024-02-10 09:21] VITALS: BP 113/65; PULSE 87; RESP 14; TEMP 36.4; O2SAT 96
[2024-02-10 09:36] VITALS: BP 118/54; PULSE 62; RESP 14; TEMP 36.4; O2SAT 96
[2024-02-10] MEDS: HEPARIN SODIUM LOCK FLUSH 500 UNITS/5 ML SYRINGE (09:44)
== END 2024-05-10 23:59 | disposition home or self-care (01) ==
LOC: ANHCPCTRAN 07:36
PROVIDERS: PCP Family Medicine; Visit Provider Internal Medicine Medical Oncology
DX: C85.90 Non-Hodgkin lymphoma, unspecified, unspecified site (principal)
CPT/HCPCS: 36415; 36430; 86900; 86901; A9270; J1644; P9034

== ENCOUNTER 2024-02-12 09:00 | Outpatient (RCR) | payer MEDICARE, OTHER, SELFPAY ==
[2019-05-10] VITALS (7 sets, daily range): BP systolic 126–181; BP diastolic 57–80; PULSE 57–166; RESP 16; TEMP 36.1; O2SAT 97–100
[2019-05-10 08:51] LABS: Basophils Percent Auto 0.2 % (0.2-1.2); Eosinophils Percent Auto 0.1 % (0-4.4); Hematocrit 23.2 % (42.0-52.0); Immature Granulocyte Absolute 0.01 K/mm3 (0.00-0.031); Immature Granulocyte Percent A 0.1 % (0-0.5); Lymphocytes Absolute Auto 17.67 K/mm3 (0.9-3.2); Lymphocytes Percent Auto 96.5 % (18.3-44.2); Mean Corpuscular HGB Conc 29.7 g/dl (32-36); Mean Corpuscular Hemoglobin 34.8 pg (26-34); Mean Corpuscular Volume 117.2 fl (80-100); Mean Platelet Volume 10.6 fl (7.4-10.4); Monocytes Absolute Auto 0.1 K/mm3 (0.1-0.6); Monocytes Percent Auto 0.6 % (2.6-8.5); Neutrophils Absolute Auto 0.5 K/mm3 (1.3-6.7); Neutrophils Percent Auto 2.5 % (45.5-73.1); Platelet Count Result 40 k/mm3 (150-375); Red Blood Count 1.98 M/mm3 (4.6-6.20); Red Cell Distribution Width 15.6 % (11.5-14.5); White Blood Count 18.3 K/mm3 (4.5-10.0)
[2019-05-10 08:53] LABS: Hemoglobin 6.9 g/dL (14.0-18.0)
[2019-05-10 08:59] LABS: Hypochromasia 1+ (NORMAL); Platelet Estimate Decreased (Adequate)
[2019-05-10 08:59] LABS: Blood Urea Nitrogen 26 mg/dL (8-26); Carbon Dioxide 23 mmol/L (22-30); Chloride 107 mmol/L (98-109); Estimated CRCL calculation 44 ml/min; Estimated Glomerular Filt Rate 46; Glucose 135 mg/dL (70-105); Potassium 5.1 mmol/L (3.5-4.9); Sodium 141 mmol/L (138-146)
[2019-05-10] MEDS: ACETAMINOPHEN 325 MG TABLET 650 MG PO (09:51)
[2019-05-10] MEDS: DEXAMETHASONE SOD IVPB (09:51)
[2019-05-10] MEDS: SODIUM CHLORIDE 0.9% IVPB ×2 (09:51→10:54)
[2019-05-10 10:02] LABS: Immature Reticulocyte Fraction 23.3 % (3.0-15.9); Reticulocyte Hemoglobin Conten 31.3 pg (28.2-35.7); Reticulocyte Percent 2.64 % (0.7-4.3); Reticulocytes Absolute 0.05 B/L (32.2-175.7)
[2019-05-10] MEDS: OBINUTUZUMAB IVPB (10:54)
[2019-05-10 11:04] LABS: Alanine Aminotransferase 9 U/L (4-50); Albumin Level 3.3 g/dL (3.5-5.1); Alkaline Phosphatase 64 U/L (38-126); Aspartate Amino Transferase 12 U/L (17-59); Bilirubin,Total 0.3 mg/dL (0.2-1.3); Blood Urea Nitrogen 26 mg/dL (9-20); Calcium 8.5 mg/dL (8.4-10.2); Carbon Dioxide 23 mmol/L (22-30); Chloride 109 mmol/L (98-107); Estimated CRCL calculation 47 ml/min; Estimated Glomerular Filt Rate 50; Glucose 129 mg/dL (75-110); Lactate Dehydrogenase 209 U/L (313-618); Potassium 5.2 mmol/L (3.4-5.0); Sodium 138 mmol/L (137-145)
[2019-05-10] MEDS: methylPREDNISolone SOD SUCC 125 MG VIAL IV PUSH (11:27)
[2019-05-10] MEDS: MEPERIDINE HCL INJ 50 MG/ML AMPUL 12.5 MG IV PUSH (12:17)
--- NOTE | 2019-05-10 13:22 | PC.NURSE ---
Increase Gazyva to 25 ml/hr.
[2019-05-10] MEDS: HEPARIN SOD FLUSH 500 UNITS/5 ML SYRINGE IV PUSH (16:28)
[2019-05-11 08:46] VITALS: BP 142/61; PULSE 58; RESP 16; TEMP 36.1; O2SAT 100
[2019-05-11] MEDS: ACETAMINOPHEN 325 MG TABLET 650 MG PO (08:55)
[2019-05-11] MEDS: SODIUM CHLORIDE 0.9% IVPB ×2 (08:55→10:02)
[2019-05-11] MEDS: DEXAMETHASONE SOD IVPB (08:55)
[2019-05-11] MEDS: OBINUTUZUMAB IVPB (10:02)
[2019-05-11] MEDS: HEPARIN SOD FLUSH 500 UNITS/5 ML SYRINGE IV PUSH (14:17)
[2019-05-11 14:20] VITALS: BP 145/67
[2019-05-12 03:22] LABS: Haptoglobin 332 mg/dL (43-212)
[2019-05-17 08:48] LABS: Basophils Percent Auto 0.1 % (0.2-1.2); Hematocrit 29.9 % (42.0-52.0); Hemoglobin 9.5 g/dL (14.0-18.0); Lymphocytes Absolute Auto 8.01 K/mm3 (0.9-3.2); Lymphocytes Percent Auto 85.2 % (18.3-44.2); Mean Corpuscular HGB Conc 31.8 g/dl (32-36); Mean Corpuscular Hemoglobin 34.4 pg (26-34); Mean Corpuscular Volume 108.3 fl (80-100); Mean Platelet Volume 11.6 fl (7.4-10.4); Monocytes Absolute Auto 0.1 K/mm3 (0.1-0.6); Monocytes Percent Auto 0.5 % (2.6-8.5); Neutrophils Absolute Auto 1.3 K/mm3 (1.3-6.7); Neutrophils Percent Auto 14.2 % (45.5-73.1); Platelet Count Result 40 k/mm3 (150-375); Red Blood Count 2.76 M/mm3 (4.6-6.20); Red Cell Distribution Width 16.3 % (11.5-14.5); White Blood Count 9.4 K/mm3 (4.5-10.0)
[2019-05-17 08:52] LABS: Atypical Lymphocytes Present; Platelet Estimate Decreased (Adequate)
[2019-05-17 08:52] LABS: Blood Urea Nitrogen 25 mg/dL (8-26); Carbon Dioxide 21 mmol/L (22-30); Chloride 107 mmol/L (98-109); Estimated CRCL calculation 65 ml/min; Estimated Glomerular Filt Rate > 60; Glucose 219 mg/dL (70-105); Sodium 138 mmol/L (138-146)
[2019-05-17 08:59] VITALS: BP 137/67; PULSE 57; RESP 16; TEMP 36.4; O2SAT 100
[2019-05-17] MEDS: ACETAMINOPHEN 325 MG TABLET 650 MG PO (09:13)
[2019-05-17] MEDS: SODIUM CHLORIDE 0.9% IVPB ×2 (09:13→10:20)
[2019-05-17] MEDS: DEXAMETHASONE SOD IVPB (09:13)
[2019-05-17] MEDS: OBINUTUZUMAB IVPB (10:20)
[2019-05-17 11:34] LABS: Alanine Aminotransferase 19 U/L (4-50); Albumin Level 3.3 g/dL (3.5-5.1); Alkaline Phosphatase 67 U/L (38-126); Aspartate Amino Transferase 12 U/L (17-59); Bilirubin,Total 0.3 mg/dL (0.2-1.3); Blood Urea Nitrogen 26 mg/dL (9-20); Calcium 8.6 mg/dL (8.4-10.2); Carbon Dioxide 22 mmol/L (22-30); Chloride 109 mmol/L (98-107); Estimated CRCL calculation 65 ml/min; Estimated Glomerular Filt Rate > 60; Glucose 210 mg/dL (75-110); Sodium 136 mmol/L (137-145)
[2019-05-17 13:48] VITALS: BP 157/75; PULSE 52; RESP 16; TEMP 36.6; O2SAT 100
[2019-05-17] MEDS: HEPARIN SOD FLUSH 500 UNITS/5 ML SYRINGE IV PUSH (13:48)
[2019-05-24 09:26] LABS: Basophils Percent Auto 0.2 % (0.2-1.2); Hematocrit 30.9 % (42.0-52.0); Hemoglobin 9.5 g/dL (14.0-18.0); Immature Granulocyte Absolute 0.03 K/mm3 (0.00-0.031); Immature Granulocyte Percent A 0.3 % (0-0.5); Lymphocytes Absolute Auto 7.57 K/mm3 (0.9-3.2); Lymphocytes Percent Auto 84.3 % (18.3-44.2); Mean Corpuscular HGB Conc 30.7 g/dl (32-36); Mean Corpuscular Hemoglobin 34.3 pg (26-34); Mean Corpuscular Volume 111.6 fl (80-100); Mean Platelet Volume 10.4 fl (7.4-10.4); Monocytes Percent Auto 0.3 % (2.6-8.5); Neutrophils Absolute Auto 1.3 K/mm3 (1.3-6.7); Neutrophils Percent Auto 14.9 % (45.5-73.1); Platelet Count Result 53 k/mm3 (150-375); Red Blood Count 2.77 M/mm3 (4.6-6.20); Red Cell Distribution Width 15.5 % (11.5-14.5)
[2019-05-24 09:27] LABS: Blood Urea Nitrogen 27 mg/dL (8-26); Carbon Dioxide 21 mmol/L (22-30); Chloride 108 mmol/L (98-109); Estimated CRCL calculation 59 ml/min; Estimated Glomerular Filt Rate > 60; Glucose 214 mg/dL (70-105); Potassium 5.1 mmol/L (3.5-4.9); Sodium 138 mmol/L (138-146)
[2019-05-24 09:33] VITALS: BP 145/63; PULSE 62; RESP 16; TEMP 36.1; O2SAT 98
[2019-05-24] MEDS: ACETAMINOPHEN 325 MG TABLET 650 MG PO (09:41)
[2019-05-24] MEDS: DEXAMETHASONE SOD IVPB (09:45)
[2019-05-24] MEDS: SODIUM CHLORIDE 0.9% IVPB ×2 (09:45→10:26)
[2019-05-24] MEDS: OBINUTUZUMAB IVPB (10:26)
[2019-05-24 12:22] LABS: Alanine Aminotransferase 15 U/L (4-50); Albumin Level 3.1 g/dL (3.5-5.1); Alkaline Phosphatase 68 U/L (38-126); Aspartate Amino Transferase 11 U/L (17-59); Bilirubin,Total 0.2 mg/dL (0.2-1.3); Blood Urea Nitrogen 27 mg/dL (9-20); Calcium 8.5 mg/dL (8.4-10.2); Carbon Dioxide 23 mmol/L (22-30); Chloride 109 mmol/L (98-107); Estimated CRCL calculation 65 ml/min; Estimated Glomerular Filt Rate > 60; Glucose 208 mg/dL (75-110); Potassium 5.1 mmol/L (3.4-5.0); Sodium 137 mmol/L (137-145)
[2019-05-24] MEDS: HEPARIN SOD FLUSH 500 UNITS/5 ML SYRINGE IV PUSH (13:47)
[2019-05-24 13:48] VITALS: BP 149/72; PULSE 52; RESP 16; O2SAT 99
[2019-06-14 08:45] LABS: Basophils Percent Auto 0.1 % (0.2-1.2); Eosinophils Percent Auto 0.4 % (0-4.4); Hematocrit 30.9 % (42.0-52.0); Hemoglobin 9.5 g/dL (14.0-18.0); Immature Granulocyte Absolute 0.01 K/mm3 (0.00-0.031); Immature Granulocyte Percent A 0.1 % (0-0.5); Lymphocytes Absolute Auto 4.03 K/mm3 (0.9-3.2); Lymphocytes Percent Auto 54.8 % (18.3-44.2); Mean Corpuscular HGB Conc 30.7 g/dl (32-36); Mean Corpuscular Hemoglobin 32.5 pg (26-34); Mean Corpuscular Volume 105.8 fl (80-100); Mean Platelet Volume 9.5 fl (7.4-10.4); Monocytes Absolute Auto 0.1 K/mm3 (0.1-0.6); Neutrophils Absolute Auto 3.2 K/mm3 (1.3-6.7); Neutrophils Percent Auto 43.6 % (45.5-73.1); Platelet Count Result 120 k/mm3 (150-375); Red Blood Count 2.92 M/mm3 (4.6-6.20); Red Cell Distribution Width 14.3 % (11.5-14.5); White Blood Count 7.4 K/mm3 (4.5-10.0)
[2019-06-14 08:50] LABS: Blood Urea Nitrogen 25 mg/dL (8-26); Carbon Dioxide 24 mmol/L (22-30); Chloride 104 mmol/L (98-109); Estimated CRCL calculation 50 ml/min; Estimated Glomerular Filt Rate 54; Glucose 161 mg/dL (70-105); Potassium 4.8 mmol/L (3.5-4.9); Sodium 139 mmol/L (138-146)
[2019-06-14] MEDS: DEXAMETHASONE SOD IVPB (09:54)
[2019-06-14] MEDS: ACETAMINOPHEN 325 MG TABLET 650 MG PO (09:54)
[2019-06-14] MEDS: SODIUM CHLORIDE 0.9% IVPB ×2 (09:54→10:48)
[2019-06-14 10:00] VITALS: BP 119/56; PULSE 56; RESP 16; TEMP 36.2; O2SAT 99
[2019-06-14] MEDS: OBINUTUZUMAB IVPB (10:48)
[2019-06-14 12:35] LABS: Alanine Aminotransferase 17 U/L (4-50); Albumin Level 3.2 g/dL (3.5-5.1); Alkaline Phosphatase 78 U/L (38-126); Aspartate Amino Transferase 13 U/L (17-59); Bilirubin,Total 0.3 mg/dL (0.2-1.3); Blood Urea Nitrogen 25 mg/dL (9-20); Calcium 9.1 mg/dL (8.4-10.2); Carbon Dioxide 25 mmol/L (22-30); Chloride 105 mmol/L (98-107); Estimated CRCL calculation 54 ml/min; Estimated Glomerular Filt Rate 60; Glucose 155 mg/dL (75-110); Sodium 137 mmol/L (137-145)
[2019-06-14 14:00] VITALS: BP 126/67; PULSE 56; RESP 16; O2SAT 100
[2019-06-14] MEDS: HEPARIN SOD FLUSH 500 UNITS/5 ML SYRINGE IV PUSH (14:02)
[2019-07-14 08:30] LABS: Basophils Percent Auto 0.2 % (0.2-1.2); Eosinophils Absolute Auto 0.1 K/mm3 (0-0.3); Eosinophils Percent Auto 1.3 % (0-4.4); Hematocrit 35.5 % (42.0-52.0); Hemoglobin 10.9 g/dL (14.0-18.0); Immature Granulocyte Absolute 0.02 K/mm3 (0.00-0.031); Immature Granulocyte Percent A 0.3 % (0-0.5); Lymphocytes Absolute Auto 2.73 K/mm3 (0.9-3.2); Lymphocytes Percent Auto 43.1 % (18.3-44.2); Mean Corpuscular HGB Conc 30.7 g/dl (32-36); Mean Corpuscular Hemoglobin 31.1 pg (26-34); Mean Corpuscular Volume 101.1 fl (80-100); Mean Platelet Volume 10.5 fl (7.4-10.4); Monocytes Absolute Auto 0.2 K/mm3 (0.1-0.6); Neutrophils Absolute Auto 3.3 K/mm3 (1.3-6.7); Neutrophils Percent Auto 52.1 % (45.5-73.1); Platelet Count Result 87 k/mm3 (150-375); Red Blood Count 3.51 M/mm3 (4.6-6.20); Red Cell Distribution Width 14.6 % (11.5-14.5); White Blood Count 6.3 K/mm3 (4.5-10.0)
[2019-07-14 08:32] LABS: Blood Urea Nitrogen 26 mg/dL (8-26); Carbon Dioxide 22 mmol/L (22-30); Chloride 108 mmol/L (98-109); Estimated CRCL calculation 50 ml/min; Estimated Glomerular Filt Rate 54; Glucose 149 mg/dL (70-105); Potassium 4.9 mmol/L (3.5-4.9); Sodium 141 mmol/L (138-146)
[2019-07-14 09:25] VITALS: BP 170/72; PULSE 55; RESP 16; TEMP 35.8; O2SAT 100
[2019-07-14] MEDS: SODIUM CHLORIDE 0.9% IVPB ×2 (09:36→10:28)
[2019-07-14] MEDS: DEXAMETHASONE SOD IVPB (09:36)
[2019-07-14] MEDS: ACETAMINOPHEN 325 MG TABLET 650 MG PO (09:36)
[2019-07-14 09:57] LABS: Alanine Aminotransferase 15 U/L (4-50); Albumin Level 3.8 g/dL (3.5-5.1); Alkaline Phosphatase 78 U/L (38-126); Aspartate Amino Transferase 17 U/L (17-59); Bilirubin,Total 0.3 mg/dL (0.2-1.3); Blood Urea Nitrogen 26 mg/dL (9-20); Carbon Dioxide 22 mmol/L (22-30); Chloride 110 mmol/L (98-107); Estimated CRCL calculation 54 ml/min; Estimated Glomerular Filt Rate 60; Glucose 140 mg/dL (75-110); Potassium 5.1 mmol/L (3.4-5.0); Sodium 140 mmol/L (137-145)
[2019-07-14] MEDS: OBINUTUZUMAB IVPB (10:28)
[2019-07-14] MEDS: HEPARIN SOD FLUSH 500 UNITS/5 ML SYRINGE IV PUSH (13:57)
[2019-07-14 14:00] VITALS: BP 154/74; PULSE 53; RESP 16; O2SAT 99
[2019-08-11 09:13] LABS: Basophils Percent Auto 0.1 % (0.2-1.2); Eosinophils Percent Auto 0.3 % (0-4.4); Hematocrit 37.8 % (42.0-52.0); Hemoglobin 12.2 g/dL (14.0-18.0); Immature Granulocyte Absolute 0.02 K/mm3 (0.00-0.031); Immature Granulocyte Percent A 0.3 % (0-0.5); Immature Platelet Fraction Pct 4.9 % (0.9-11.2); Lymphocytes Absolute Auto 2.32 K/mm3 (0.9-3.2); Lymphocytes Percent Auto 31.8 % (18.3-44.2); Mean Corpuscular HGB Conc 32.3 g/dl (32-36); Mean Corpuscular Hemoglobin 31.4 pg (26-34); Mean Corpuscular Volume 97.2 fl (80-100); Monocytes Absolute Auto 0.5 K/mm3 (0.1-0.6); Monocytes Percent Auto 6.6 % (2.6-8.5); Neutrophils Absolute Auto 4.5 K/mm3 (1.3-6.7); Neutrophils Percent Auto 60.9 % (45.5-73.1); Platelet Count Result 90 k/mm3 (150-375); Red Blood Count 3.89 M/mm3 (4.6-6.20); Red Cell Distribution Width 13.8 % (11.5-14.5); White Blood Count 7.3 K/mm3 (4.5-10.0)
[2019-08-11 09:14] LABS: Blood Urea Nitrogen 25 mg/dL (8-26); Carbon Dioxide 23 mmol/L (22-30); Chloride 108 mmol/L (98-109); Estimated CRCL calculation 57 ml/min; Estimated Glomerular Filt Rate 54; Glucose 132 mg/dL (70-105); Potassium 4.2 mmol/L (3.5-4.9); Sodium 142 mmol/L (138-146)
[2019-08-11 09:40] VITALS: BP 181/87; PULSE 50; RESP 16; TEMP 36.1; O2SAT 100
[2019-08-11] MEDS: ACETAMINOPHEN 325 MG TABLET 650 MG PO (09:54)
[2019-08-11] MEDS: DEXAMETHASONE SOD IVPB (09:54)
[2019-08-11] MEDS: SODIUM CHLORIDE 0.9% IVPB ×2 (09:54→10:31)
[2019-08-11] MEDS: OBINUTUZUMAB IVPB (10:31)
[2019-08-11 12:44] LABS: Alanine Aminotransferase 17 U/L (4-50); Alkaline Phosphatase 75 U/L (38-126); Aspartate Amino Transferase 15 U/L (17-59); Bilirubin,Total 0.5 mg/dL (0.2-1.3); Blood Urea Nitrogen 25 mg/dL (9-20); Calcium 9.2 mg/dL (8.4-10.2); Carbon Dioxide 25 mmol/L (22-30); Chloride 109 mmol/L (98-107); Estimated CRCL calculation 67 ml/min; Estimated Glomerular Filt Rate > 60; Glucose 136 mg/dL (75-110); Potassium 4.3 mmol/L (3.4-5.0); Sodium 140 mmol/L (137-145)
[2019-08-11 13:35] VITALS: BP 155/71
[2019-08-11] MEDS: HEPARIN SOD FLUSH 500 UNITS/5 ML SYRINGE IV PUSH (13:54)
[2019-09-06 08:46] LABS: Basophils Percent Auto 0.1 % (0.2-1.2); Eosinophils Percent Auto 0.4 % (0-4.4); Hematocrit 37.5 % (42.0-52.0); Hemoglobin 12.1 g/dL (14.0-18.0); Immature Granulocyte Absolute 0.03 K/mm3 (0.00-0.031); Immature Granulocyte Percent A 0.4 % (0-0.5); Immature Platelet Fraction Pct 4.9 % (0.9-11.2); Lymphocytes Absolute Auto 1.89 K/mm3 (0.9-3.2); Lymphocytes Percent Auto 23.6 % (18.3-44.2); Mean Corpuscular HGB Conc 32.3 g/dl (32-36); Mean Corpuscular Hemoglobin 30.6 pg (26-34); Mean Corpuscular Volume 94.7 fl (80-100); Monocytes Absolute Auto 0.5 K/mm3 (0.1-0.6); Neutrophils Absolute Auto 5.6 K/mm3 (1.3-6.7); Neutrophils Percent Auto 69.5 % (45.5-73.1); Platelet Count Result 108 k/mm3 (150-375); Red Blood Count 3.96 M/mm3 (4.6-6.20); Red Cell Distribution Width 13.5 % (11.5-14.5)
[2019-09-06 08:47] LABS: Blood Urea Nitrogen 23 mg/dL (8-26); Carbon Dioxide 21 mmol/L (22-30); Chloride 106 mmol/L (98-109); Estimated CRCL calculation 63 ml/min; Estimated Glomerular Filt Rate 60; Glucose 145 mg/dL (70-105); Potassium 4.4 mmol/L (3.5-4.9); Sodium 142 mmol/L (138-146)
[2019-09-06] MEDS: diphenhydrAMINE HCl INJ 50 MG/ML VIAL 25 MG IV PUSH (09:25)
[2019-09-06] MEDS: SODIUM CHLORIDE 0.9% IVPB ×2 (09:25→10:01)
[2019-09-06] MEDS: DEXAMETHASONE SOD IVPB (09:25)
[2019-09-06] MEDS: ACETAMINOPHEN 325 MG TABLET 650 MG PO (09:26)
[2019-09-06 09:32] VITALS: BP 166/80; PULSE 53; RESP 16; TEMP 36.1; O2SAT 98
[2019-09-06] MEDS: OBINUTUZUMAB IVPB (10:01)
[2019-09-06 10:37] LABS: Alanine Aminotransferase 18 U/L (4-50); Albumin Level 3.9 g/dL (3.5-5.1); Alkaline Phosphatase 77 U/L (38-126); Aspartate Amino Transferase 15 U/L (17-59); Bilirubin,Total 0.4 mg/dL (0.2-1.3); Blood Urea Nitrogen 23 mg/dL (9-20); Calcium 9.2 mg/dL (8.4-10.2); Carbon Dioxide 23 mmol/L (22-30); Chloride 108 mmol/L (98-107); Estimated CRCL calculation 68 ml/min; Estimated Glomerular Filt Rate > 60; Glucose 145 mg/dL (75-110); Potassium 4.5 mmol/L (3.4-5.0); Sodium 139 mmol/L (137-145)
[2019-09-06] MEDS: HEPARIN SOD FLUSH 500 UNITS/5 ML SYRINGE IV PUSH (13:30)
[2019-09-06 13:35] VITALS: PULSE 53; RESP 16; O2SAT 99
[2019-09-06 13:44] VITALS: BP 212/89
[2019-09-06 13:49] VITALS: BP 205/82
[2019-09-06 14:22] VITALS: BP 198/74
--- NOTE | 2019-09-08 11:05 | PC.NURSE ---
Spoke to patient since blood pressure was elevated on departure. Patient to be monitoring blood pressure at home. Patient's blood pressure machine broke and he has ordered a new one. Patient states he feels great. Offered to patient to come in for a blood pressure check but he declined.
--- NOTE | 2019-09-10 13:56 | PC.NURSE ---
Patient called with blood pressure reading 114/70.
[2019-10-04 09:20] LABS: Hematocrit 39.6 % (42.0-52.0); Hemoglobin 13.1 g/dL (14.0-18.0); Immature Granulocyte Absolute 0.07 K/mm3 (0.00-0.031); Immature Granulocyte Percent A 0.6 % (0-0.5); Lymphocytes Absolute Auto 1.43 K/mm3 (0.9-3.2); Lymphocytes Percent Auto 12.8 % (18.3-44.2); Mean Corpuscular HGB Conc 33.1 g/dl (32-36); Mean Corpuscular Hemoglobin 30.7 pg (26-34); Mean Corpuscular Volume 92.7 fl (80-100); Monocytes Absolute Auto 0.5 K/mm3 (0.1-0.6); Monocytes Percent Auto 4.8 % (2.6-8.5); Neutrophils Absolute Auto 9.1 K/mm3 (1.3-6.7); Neutrophils Percent Auto 81.8 % (45.5-73.1); Platelet Count Result 101 k/mm3 (150-375); Red Blood Count 4.27 M/mm3 (4.6-6.20); Red Cell Distribution Width 13.2 % (11.5-14.5); White Blood Count 11.1 K/mm3 (4.5-10.0)
[2019-10-04 09:28] LABS: Blood Urea Nitrogen 23 mg/dL (8-26); Carbon Dioxide 23 mmol/L (22-30); Chloride 105 mmol/L (98-109); Estimated CRCL calculation 59 ml/min; Estimated Glomerular Filt Rate 54; Glucose 207 mg/dL (70-105); Potassium 4.9 mmol/L (3.5-4.9); Sodium 141 mmol/L (138-146)
[2019-10-04 10:21] VITALS: BP 189/74; PULSE 51; RESP 16; TEMP 35.8; O2SAT 99
[2019-10-04] MEDS: diphenhydrAMINE HCl INJ 50 MG/ML VIAL 25 MG IV PUSH (10:40)
[2019-10-04] MEDS: SODIUM CHLORIDE 0.9% IVPB ×2 (10:40→11:24)
[2019-10-04] MEDS: ACETAMINOPHEN 325 MG TABLET 650 MG PO (10:40)
[2019-10-04] MEDS: DEXAMETHASONE SOD IVPB (10:40)
[2019-10-04] MEDS: OBINUTUZUMAB IVPB (11:24)
[2019-10-04 12:17] LABS: Alanine Aminotransferase 21 U/L (4-50); Albumin Level 4.1 g/dL (3.5-5.1); Alkaline Phosphatase 92 U/L (38-126); Anion Gap 8 mmol/L (8-16); Aspartate Amino Transferase 17 U/L (17-59); Bilirubin,Total 0.4 mg/dL (0.2-1.3); Blood Urea Nitrogen 21 mg/dL (9-20); Calcium 9.3 mg/dL (8.4-10.2); Carbon Dioxide 23 mmol/L (22-30); Chloride 105 mmol/L (98-107); Estimated CRCL calculation 63 ml/min; Estimated Glomerular Filt Rate 60; Glucose 207 mg/dL (75-110); Sodium 136 mmol/L (137-145)
[2019-10-04 14:39] VITALS: BP 182/77
[2019-10-04] MEDS: HEPARIN SOD FLUSH 500 UNITS/5 ML SYRINGE IV PUSH (14:50)
[2019-11-29] MEDS: HEPARIN SOD FLUSH 500 UNITS/5 ML SYRINGE IV PUSH (09:13)
[2019-11-29 09:27] LABS: Basophils Percent Auto 0.3 % (0.2-1.2); Eosinophils Absolute Auto 0.1 K/mm3 (0-0.3); Eosinophils Percent Auto 1.8 % (0-4.4); Hematocrit 37.5 % (42.0-52.0); Hemoglobin 12.4 g/dL (14.0-18.0); Immature Granulocyte Absolute 0.03 K/mm3 (0.00-0.031); Immature Granulocyte Percent A 0.5 % (0-0.5); Immature Platelet Fraction Pct 5.1 % (0.9-11.2); Lymphocytes Absolute Auto 1.03 K/mm3 (0.9-3.2); Lymphocytes Percent Auto 16.7 % (18.3-44.2); Mean Corpuscular HGB Conc 33.1 g/dl (32-36); Mean Corpuscular Volume 93.8 fl (80-100); Mean Platelet Volume 11.3 fl (7.4-10.4); Monocytes Absolute Auto 0.4 K/mm3 (0.1-0.6); Monocytes Percent Auto 6.6 % (2.6-8.5); Neutrophils Absolute Auto 4.6 K/mm3 (1.3-6.7); Neutrophils Percent Auto 74.1 % (45.5-73.1); Platelet Count Result 113 k/mm3 (150-375); Red Cell Distribution Width 13.1 % (11.5-14.5); White Blood Count 6.2 K/mm3 (4.5-10.0)
[2019-11-29 09:29] LABS: Blood Urea Nitrogen 19 mg/dL (8-26); Carbon Dioxide 22 mmol/L (22-30); Chloride 108 mmol/L (98-109); Estimated CRCL calculation 59 ml/min; Estimated Glomerular Filt Rate 54; Glucose 192 mg/dL (70-105); Potassium 4.7 mmol/L (3.5-4.9); Sodium 141 mmol/L (138-146)
[2019-11-29 11:14] LABS: Alanine Aminotransferase 16 U/L (4-50); Albumin Level 3.8 g/dL (3.5-5.1); Alkaline Phosphatase 94 U/L (38-126); Anion Gap 9 mmol/L (8-16); Aspartate Amino Transferase 16 U/L (17-59); Bilirubin,Total 0.5 mg/dL (0.2-1.3); Blood Urea Nitrogen 19 mg/dL (9-20); Calcium 9.1 mg/dL (8.4-10.2); Carbon Dioxide 24 mmol/L (22-30); Chloride 107 mmol/L (98-107); Estimated CRCL calculation 59 ml/min; Estimated Glomerular Filt Rate 54; Glucose 186 mg/dL (75-110); Potassium 4.8 mmol/L (3.4-5.0); Sodium 140 mmol/L (137-145)
[2020-01-21] MEDS: HEPARIN SOD FLUSH 500 UNITS/5 ML SYRINGE IV PUSH (08:45)
[2020-01-21 08:58] LABS: Blood Urea Nitrogen 21 mg/dL (8-26); Carbon Dioxide 25 mmol/L (22-30); Chloride 106 mmol/L (98-109); Estimated CRCL calculation 58 ml/min; Estimated Glomerular Filt Rate 54; Glucose 215 mg/dL (70-105); Potassium 4.7 mmol/L (3.5-4.9); Sodium 140 mmol/L (138-146)
[2020-01-21 08:58] LABS: Basophils Percent Auto 0.3 % (0.2-1.2); Eosinophils Absolute Auto 0.4 K/mm3 (0-0.3); Hematocrit 38.1 % (42.0-52.0); Hemoglobin 12.6 g/dL (14.0-18.0); Immature Granulocyte Absolute 0.04 K/mm3 (0.00-0.031); Immature Granulocyte Percent A 0.5 % (0-0.5); Immature Platelet Fraction Pct 6.3 % (0.9-11.2); Lymphocytes Absolute Auto 1.04 K/mm3 (0.9-3.2); Lymphocytes Percent Auto 13.6 % (18.3-44.2); Mean Corpuscular HGB Conc 33.1 g/dl (32-36); Mean Corpuscular Hemoglobin 30.9 pg (26-34); Mean Corpuscular Volume 93.4 fl (80-100); Mean Platelet Volume 11.4 fl (7.4-10.4); Monocytes Absolute Auto 0.5 K/mm3 (0.1-0.6); Monocytes Percent Auto 5.9 % (2.6-8.5); Neutrophils Absolute Auto 5.7 K/mm3 (1.3-6.7); Neutrophils Percent Auto 74.7 % (45.5-73.1); Platelet Count Result 110 k/mm3 (150-375); Red Blood Count 4.08 M/mm3 (4.6-6.20); Red Cell Distribution Width 12.4 % (11.5-14.5); White Blood Count 7.7 K/mm3 (4.5-10.0)
[2020-01-21 10:07] LABS: Alanine Aminotransferase 15 U/L (4-50); Albumin Level 3.5 g/dL (3.5-5.1); Alkaline Phosphatase 96 U/L (38-126); Anion Gap 8 mmol/L (8-16); Aspartate Amino Transferase 15 U/L (17-59); Bilirubin,Total 0.5 mg/dL (0.2-1.3); Blood Urea Nitrogen 20 mg/dL (9-20); Calcium 8.8 mg/dL (8.4-10.2); Carbon Dioxide 24 mmol/L (22-30); Chloride 107 mmol/L (98-107); Estimated CRCL calculation 68 ml/min; Estimated Glomerular Filt Rate > 60; Glucose 213 mg/dL (75-110); Lactate Dehydrogenase 335 U/L (313-618); Potassium 4.9 mmol/L (3.4-5.0); Sodium 139 mmol/L (137-145)
[2020-01-21 13:14] LABS: Hemoglobin A1C 6.3 % (<5.7)
[2020-03-16] MEDS: HEPARIN SOD FLUSH 500 UNITS/5 ML SYRINGE IV PUSH (08:34)
[2020-03-16 08:36] LABS: Basophils Percent Auto 0.4 % (0.2-1.2); Eosinophils Absolute Auto 0.4 K/mm3 (0-0.3); Eosinophils Percent Auto 4.8 % (0-4.4); Hematocrit 39.7 % (42.0-52.0); Hemoglobin 12.9 g/dL (14.0-18.0); Immature Granulocyte Absolute 0.05 K/mm3 (0.00-0.031); Immature Granulocyte Percent A 0.7 % (0-0.5); Lymphocytes Absolute Auto 1.22 K/mm3 (0.9-3.2); Lymphocytes Percent Auto 15.9 % (18.3-44.2); Mean Corpuscular HGB Conc 32.5 g/dl (32-36); Mean Corpuscular Hemoglobin 30.2 pg (26-34); Mean Platelet Volume 10.5 fl (7.4-10.4); Monocytes Absolute Auto 0.5 K/mm3 (0.1-0.6); Monocytes Percent Auto 6.4 % (2.6-8.5); Neutrophils Absolute Auto 5.5 K/mm3 (1.3-6.7); Neutrophils Percent Auto 71.8 % (45.5-73.1); Platelet Count Result 135 k/mm3 (150-375); Red Blood Count 4.27 M/mm3 (4.6-6.20); Red Cell Distribution Width 12.7 % (11.5-14.5); White Blood Count 7.7 K/mm3 (4.5-10.0)
[2020-03-16 08:44] LABS: Blood Urea Nitrogen 21 mg/dL (8-26); Carbon Dioxide 23 mmol/L (22-30); Chloride 107 mmol/L (98-109); Estimated CRCL calculation 54 ml/min; Estimated Glomerular Filt Rate 50; Glucose 199 mg/dL (70-105); Potassium 4.5 mmol/L (3.5-4.9); Sodium 141 mmol/L (138-146)
[2020-03-16 11:26] LABS: Alanine Aminotransferase 17 U/L (4-50); Albumin Level 3.7 g/dL (3.5-5.1); Alkaline Phosphatase 94 U/L (38-126); Anion Gap 7 mmol/L (8-16); Aspartate Amino Transferase 18 U/L (17-59); Bilirubin,Total 0.4 mg/dL (0.2-1.3); Blood Urea Nitrogen 20 mg/dL (9-20); Carbon Dioxide 24 mmol/L (22-30); Chloride 108 mmol/L (98-107); Estimated CRCL calculation 62 ml/min; Estimated Glomerular Filt Rate 59; Glucose 197 mg/dL (75-110); Lactate Dehydrogenase 352 U/L (313-618); Potassium 4.7 mmol/L (3.4-5.0); Sodium 139 mmol/L (137-145)
[2020-05-11] MEDS: HEPARIN SOD FLUSH 500 UNITS/5 ML SYRINGE IV PUSH (08:39)
[2020-06-12 10:34] LABS: Basophils Percent Auto 0.3 % (0.2-1.2); Eosinophils Absolute Auto 0.2 K/mm3 (0-0.3); Eosinophils Percent Auto 2.4 % (0-4.4); Hematocrit 40.3 % (42.0-52.0); Hemoglobin 13.2 g/dL (14.0-18.0); Immature Granulocyte Absolute 0.02 K/mm3 (0.00-0.031); Immature Granulocyte Percent A 0.3 % (0-0.5); Immature Platelet Fraction Pct 7.6 % (0.9-11.2); Lymphocytes Absolute Auto 1.37 K/mm3 (0.9-3.2); Lymphocytes Percent Auto 19.2 % (18.3-44.2); Mean Corpuscular HGB Conc 32.8 g/dl (32-36); Mean Corpuscular Hemoglobin 31.1 pg (26-34); Mean Corpuscular Volume 94.8 fl (80-100); Mean Platelet Volume 11.7 fl (7.4-10.4); Monocytes Absolute Auto 0.4 K/mm3 (0.1-0.6); Monocytes Percent Auto 5.8 % (2.6-8.5); Neutrophils Absolute Auto 5.1 K/mm3 (1.3-6.7); Platelet Count Result 111 k/mm3 (150-375); Red Blood Count 4.25 M/mm3 (4.6-6.20); Red Cell Distribution Width 12.8 % (11.5-14.5); White Blood Count 7.1 K/mm3 (4.5-10.0)
[2020-06-12 13:23] LABS: Alanine Aminotransferase 19 U/L (4-50); Albumin Level 4.1 g/dL (3.5-5.1); Alkaline Phosphatase 91 U/L (38-126); Anion Gap 7 mmol/L (8-16); Aspartate Amino Transferase 20 U/L (17-59); Bilirubin,Total 0.8 mg/dL (0.2-1.3); Blood Urea Nitrogen 23 mg/dL (9-20); Carbon Dioxide 23 mmol/L (22-30); Chloride 108 mmol/L (98-107); Estimated CRCL calculation 58 ml/min; Estimated Glomerular Filt Rate 54; Glucose 165 mg/dL (75-110); Lactate Dehydrogenase 316 U/L (313-618); Potassium 4.9 mmol/L (3.4-5.0); Sodium 138 mmol/L (137-145)
[2020-07-07] MEDS: HEPARIN SOD FLUSH 500 UNITS/5 ML SYRINGE IV PUSH (08:44)
[2020-09-01] MEDS: HEPARIN SODIUM LOCK FLUSH 500 UNITS/5 ML SYRINGE IV PUSH (08:45)
[2020-10-04 09:41] LABS: Basophils Percent Auto 0.3 % (0.2-1.2); Eosinophils Absolute Auto 0.1 K/mm3 (0-0.3); Eosinophils Percent Auto 1.8 % (0-4.4); Hematocrit 40.7 % (42.0-52.0); Hemoglobin 13.4 g/dL (14.0-18.0); Immature Granulocyte Absolute 0.02 K/mm3 (0.00-0.031); Immature Granulocyte Percent A 0.3 % (0-0.5); Immature Platelet Fraction Pct 10.8 % (0.9-11.2); Lymphocytes Absolute Auto 0.95 K/mm3 (0.9-3.2); Lymphocytes Percent Auto 13.9 % (18.3-44.2); Mean Corpuscular HGB Conc 32.9 g/dl (32-36); Mean Corpuscular Hemoglobin 31.4 pg (26-34); Mean Corpuscular Volume 95.3 fl (80-100); Mean Platelet Volume 11.6 fl (7.4-10.4); Monocytes Absolute Auto 0.5 K/mm3 (0.1-0.6); Monocytes Percent Auto 7.3 % (2.6-8.5); Neutrophils Absolute Auto 5.2 K/mm3 (1.3-6.7); Neutrophils Percent Auto 76.4 % (45.5-73.1); Platelet Count Result 108 k/mm3 (150-375); Red Blood Count 4.27 M/mm3 (4.6-6.20); Red Cell Distribution Width 12.9 % (11.5-14.5); White Blood Count 6.8 K/mm3 (4.5-10.0)
[2020-10-04 09:42] LABS: Blood Urea Nitrogen 23 mg/dL (8-26); Carbon Dioxide 24 mmol/L (22-30); Chloride 107 mmol/L (98-109); Estimated CRCL calculation 50 ml/min; Estimated Glomerular Filt Rate 46; Glucose 177 mg/dL (70-105); Potassium 4.8 mmol/L (3.5-4.9); Sodium 142 mmol/L (138-146)
[2020-10-04 13:30] LABS: Alanine Aminotransferase 17 U/L (4-50); Albumin Level 4.1 g/dL (3.5-5.1); Alkaline Phosphatase 80 U/L (38-126); Anion Gap 8 mmol/L (8-16); Aspartate Amino Transferase 15 U/L (17-59); Bilirubin,Total 0.6 mg/dL (0.2-1.3); Blood Urea Nitrogen 22 mg/dL (9-20); Calcium 9.1 mg/dL (8.4-10.2); Carbon Dioxide 22 mmol/L (22-30); Chloride 110 mmol/L (98-107); Estimated CRCL calculation 54 ml/min; Estimated Glomerular Filt Rate 50; Glucose 166 mg/dL (65-110); Lactate Dehydrogenase 272 U/L (313-618); Potassium 4.9 mmol/L (3.4-5.0); Sodium 140 mmol/L (137-145)
[2020-10-27] MEDS: HEPARIN SODIUM LOCK FLUSH 500 UNITS/5 ML SYRINGE IV PUSH (08:36)
[2020-12-22] MEDS: HEPARIN SODIUM LOCK FLUSH 500 UNITS/5 ML SYRINGE IV PUSH (08:33)
[2021-01-26 09:31] LABS: Basophils Percent Auto 0.5 % (0.2-1.2); Eosinophils Absolute Auto 0.2 K/mm3 (0-0.3); Eosinophils Percent Auto 3.6 % (0-4.4); Hematocrit 43.4 % (42.0-52.0); Hemoglobin 13.6 g/dL (14.0-18.0); Immature Granulocyte Absolute 0.01 K/mm3 (0.00-0.031); Immature Granulocyte Percent A 0.2 % (0-0.5); Lymphocytes Absolute Auto 1.15 K/mm3 (0.9-3.2); Lymphocytes Percent Auto 17.9 % (18.3-44.2); Mean Corpuscular HGB Conc 31.3 g/dl (32-36); Mean Corpuscular Hemoglobin 31.3 pg (26-34); Mean Platelet Volume 11.5 fl (7.4-10.4); Monocytes Absolute Auto 0.4 K/mm3 (0.1-0.6); Monocytes Percent Auto 6.4 % (2.6-8.5); Neutrophils Absolute Auto 4.6 K/mm3 (1.3-6.7); Neutrophils Percent Auto 71.4 % (45.5-73.1); Platelet Count Result 114 k/mm3 (150-375); Red Blood Count 4.34 M/mm3 (4.6-6.20); Red Cell Distribution Width 12.5 % (11.5-14.5); White Blood Count 6.4 K/mm3 (4.5-10.0)
[2021-01-26 12:34] LABS: Alanine Aminotransferase 21 U/L (4-50); Albumin Level 4.3 g/dL (3.5-5.1); Alkaline Phosphatase 78 U/L (38-126); Anion Gap 8 mmol/L (8-16); Aspartate Amino Transferase 20 U/L (17-59); Bilirubin,Total 0.4 mg/dL (0.2-1.3); Blood Urea Nitrogen 18 mg/dL (9-20); Calcium 8.9 mg/dL (8.4-10.2); Carbon Dioxide 24 mmol/L (22-30); Chloride 106 mmol/L (98-107); Estimated CRCL calculation 61 ml/min; Estimated Glomerular Filt Rate 59; Glucose 184 mg/dL (65-110); Lactate Dehydrogenase 325 U/L (313-618); Sodium 138 mmol/L (137-145)
[2021-02-15] MEDS: HEPARIN SODIUM LOCK FLUSH 500 UNITS/5 ML SYRINGE IV PUSH (08:39)
[2021-04-12] MEDS: HEPARIN SODIUM LOCK FLUSH 500 UNITS/5 ML SYRINGE IV PUSH (08:39)
[2021-06-07] MEDS: HEPARIN SODIUM LOCK FLUSH 500 UNITS/5 ML SYRINGE IV PUSH (08:54)
[2021-07-26 09:30] LABS: Basophils Percent Auto 0.2 % (0.2-1.2); Eosinophils Absolute Auto 0.2 K/mm3 (0-0.3); Eosinophils Percent Auto 2.3 % (0-4.4); Hematocrit 44.6 % (42.0-52.0); Hemoglobin 14.6 g/dL (14.0-18.0); Immature Granulocyte Absolute 0.02 K/mm3 (0.00-0.031); Immature Granulocyte Percent A 0.3 % (0-0.5); Immature Platelet Fraction Pct 8.7 % (0.9-11.2); Lymphocytes Percent Auto 15.1 % (18.3-44.2); Mean Corpuscular HGB Conc 32.7 g/dl (32-36); Mean Corpuscular Hemoglobin 31.8 pg (26-34); Mean Corpuscular Volume 97.2 fl (80-100); Mean Platelet Volume 11.3 fl (7.4-10.4); Monocytes Absolute Auto 0.3 K/mm3 (0.1-0.6); Monocytes Percent Auto 5.1 % (2.6-8.5); Neutrophils Absolute Auto 5.1 K/mm3 (1.3-6.7); Platelet Count Result 128 k/mm3 (150-375); Red Blood Count 4.59 M/mm3 (4.6-6.20); Red Cell Distribution Width 12.4 % (11.5-14.5); White Blood Count 6.6 K/mm3 (4.5-10.0)
[2021-07-26 11:02] LABS: Alanine Aminotransferase 18 U/L (6-50); Albumin Level 4.3 g/dL (3.5-5.1); Alkaline Phosphatase 85 U/L (38-126); Anion Gap 6 mmol/L (8-16); Aspartate Amino Transferase 19 U/L (17-59); Bilirubin,Total 0.7 mg/dL (0.2-1.3); Blood Urea Nitrogen 19 mg/dL (9-20); Calcium 8.5 mg/dL (8.4-10.2); Carbon Dioxide 25 mmol/L (22-30); Chloride 109 mmol/L (98-107); Estimated CRCL calculation 57 ml/min; Estimated Glomerular Filt Rate 54; Glucose 178 mg/dL (65-110); Lactate Dehydrogenase 316 U/L (313-618); Sodium 140 mmol/L (137-145)
[2021-08-02] MEDS: HEPARIN SODIUM LOCK FLUSH 500 UNITS/5 ML SYRINGE IV PUSH (08:55)
--- NOTE | 2021-10-12 11:37 | PHAR ---
Biosimilar substitution per protocol: rituximab will be subbed to truxima (rituximab-abbs) ([employer]). Patient will be notified of substitution by nurse during education or at their first treatment.
--- NOTE | 2021-10-12 15:52 | PC.NURSE ---
Talked to Micaela AVILA, will order allopurinol and ondansetron for upcoming treatment.
[2021-10-15 16:07] LABS: Basophils Percent Auto 0.4 % (0.2-1.2); Eosinophils Absolute Auto 0.1 K/mm3 (0-0.3); Eosinophils Percent Auto 1.2 % (0-4.4); Hemoglobin 12.2 g/dL (14.0-18.0); Immature Granulocyte Absolute 0.02 K/mm3 (0.00-0.031); Immature Granulocyte Percent A 0.2 % (0-0.5); Lymphocytes Absolute Auto 0.97 K/mm3 (0.9-3.2); Lymphocytes Percent Auto 12.1 % (18.3-44.2); Mean Corpuscular HGB Conc 31.3 g/dl (32-36); Mean Corpuscular Hemoglobin 30.7 pg (26-34); Mean Corpuscular Volume 98.2 fl (80-100); Mean Platelet Volume 11.6 fl (7.4-10.4); Monocytes Absolute Auto 0.5 K/mm3 (0.1-0.6); Monocytes Percent Auto 5.6 % (2.6-8.5); Neutrophils Absolute Auto 6.5 K/mm3 (1.3-6.7); Neutrophils Percent Auto 80.5 % (45.5-73.1); Platelet Count Result 180 k/mm3 (150-375); Red Blood Count 3.97 M/mm3 (4.6-6.20)
[2021-10-15 16:46] LABS: Alanine Aminotransferase 13 U/L (6-50); Albumin Level 4.1 g/dL (3.5-5.1); Alkaline Phosphatase 92 U/L (38-126); Anion Gap 12 mmol/L (8-16); Aspartate Amino Transferase 16 U/L (17-59); Bilirubin,Total 0.8 mg/dL (0.2-1.3); Blood Urea Nitrogen 16 mg/dL (9-20); Calcium 8.7 mg/dL (8.4-10.2); Carbon Dioxide 25 mmol/L (22-30); Chloride 101 mmol/L (98-107); Estimated CRCL calculation 57 ml/min; Estimated Glomerular Filt Rate 54; Glucose 167 mg/dL (65-110); Potassium 4.4 mmol/L (3.4-5.0); Sodium 138 mmol/L (137-145)
[2021-10-15 17:18] LABS: Hepatitis B Surface Antigen Negative (Negative)
[2021-10-16 09:09] VITALS: BP 124/78; PULSE 63; TEMP 35.7; O2SAT 98
[2021-10-16] MEDS: ACETAMINOPHEN 325 MG TABLET 650 MG PO (09:25)
[2021-10-16] MEDS: FAMOTIDINE 20 MG/2 ML VIAL IV PUSH (09:25)
[2021-10-16] MEDS: PALONOSETRON HCL 0.25 MG/5 ML VIAL IV PUSH (09:25)
[2021-10-16] MEDS: diphenhydrAMINE HCl INJ 50 MG/ML VIAL 25 MG IV PUSH (09:25)
[2021-10-16] MEDS: RITUXIMAB ABBS IVPB (10:04)
[2021-10-16] MEDS: SODIUM CHLORIDE 0.9% IVPB ×2 (10:04→13:48)
[2021-10-16] MEDS: BENDAMUSTINE HCL IVPB (13:48)
[2021-10-16 13:52] VITALS: BP 169/81
[2021-10-16] MEDS: HEPARIN SODIUM LOCK FLUSH 500 UNITS/5 ML SYRINGE IV PUSH (14:07)
[2021-10-17 10:12] VITALS: BP 147/80; PULSE 71; TEMP 35.9; O2SAT 98
[2021-10-17] MEDS: SODIUM CHLORIDE 0.9% IVPB (11:06)
[2021-10-17] MEDS: BENDAMUSTINE HCL IVPB (11:06)
[2021-10-17] MEDS: HEPARIN SODIUM LOCK FLUSH 500 UNITS/5 ML SYRINGE IV PUSH (11:20)
[2021-11-13 08:56] LABS: Basophils Percent Auto 0.3 % (0.2-1.2); Eosinophils Absolute Auto 0.3 K/mm3 (0-0.3); Eosinophils Percent Auto 3.7 % (0-4.4); Hematocrit 39.5 % (42.0-52.0); Hemoglobin 12.7 g/dL (14.0-18.0); Immature Granulocyte Absolute 0.03 K/mm3 (0.00-0.031); Immature Granulocyte Percent A 0.4 % (0-0.5); Immature Platelet Fraction Pct 3.3 % (0.9-11.2); Lymphocytes Absolute Auto 0.69 K/mm3 (0.9-3.2); Lymphocytes Percent Auto 9.2 % (18.3-44.2); Mean Corpuscular HGB Conc 32.2 g/dl (32-36); Mean Corpuscular Hemoglobin 30.3 pg (26-34); Mean Corpuscular Volume 94.3 fl (80-100); Mean Platelet Volume 10.5 fl (7.4-10.4); Monocytes Absolute Auto 0.5 K/mm3 (0.1-0.6); Monocytes Percent Auto 6.2 % (2.6-8.5); Neutrophils Absolute Auto 6.1 K/mm3 (1.3-6.7); Neutrophils Percent Auto 80.2 % (45.5-73.1); Platelet Count Result 127 k/mm3 (150-375); Red Blood Count 4.19 M/mm3 (4.6-6.20); Red Cell Distribution Width 12.3 % (11.5-14.5); White Blood Count 7.5 K/mm3 (4.5-10.0)
[2021-11-13 08:58] LABS: Blood Urea Nitrogen 18 mg/dL (8-26); Carbon Dioxide 24 mmol/L (22-30); Chloride 106 mmol/L (98-109); Estimated CRCL calculation 57 ml/min; Estimated Glomerular Filt Rate > 60; Glucose 166 mg/dL (70-105); Potassium 4.3 mmol/L (3.5-4.9); Sodium 141 mmol/L (138-146)
[2021-11-13 09:31] VITALS: BP 155/86; PULSE 58; TEMP 36.1; O2SAT 100
[2021-11-13] MEDS: ACETAMINOPHEN 325 MG TABLET 650 MG PO (09:50)
[2021-11-13] MEDS: diphenhydrAMINE HCl INJ 50 MG/ML VIAL 25 MG IV PUSH (09:51)
[2021-11-13] MEDS: PALONOSETRON HCL 0.25 MG/5 ML VIAL IV PUSH (09:54)
[2021-11-13] MEDS: FAMOTIDINE 20 MG/2 ML VIAL IV PUSH (09:56)
[2021-11-13 10:14] LABS: Alanine Aminotransferase 18 U/L (6-50); Albumin Level 3.7 g/dL (3.5-5.1); Alkaline Phosphatase 94 U/L (38-126); Anion Gap 8 mmol/L (8-16); Aspartate Amino Transferase 15 U/L (17-59); Bilirubin,Total 0.5 mg/dL (0.2-1.3); Blood Urea Nitrogen 18 mg/dL (9-20); Calcium 8.9 mg/dL (8.4-10.2); Carbon Dioxide 23 mmol/L (22-30); Chloride 106 mmol/L (98-107); Estimated CRCL calculation 57 ml/min; Estimated Glomerular Filt Rate > 60; Glucose 163 mg/dL (65-110); Magnesium 1.8 mg/dL (1.6-2.3); Potassium 4.3 mmol/L (3.4-5.0); Sodium 137 mmol/L (137-145)
[2021-11-13] MEDS: SODIUM CHLORIDE 0.9% IVPB ×2 (10:42→12:28)
[2021-11-13] MEDS: RITUXIMAB ABBS IVPB (10:42)
[2021-11-13] MEDS: BENDAMUSTINE HCL IVPB (12:28)
[2021-11-13 12:48] VITALS: BP 167/84
[2021-11-13] MEDS: HEPARIN SODIUM LOCK FLUSH 500 UNITS/5 ML SYRINGE IV PUSH (12:52)
[2021-11-14 13:26] VITALS: BP 154/76; PULSE 52; RESP 18; TEMP 36.2; O2SAT 99
[2021-11-14] MEDS: SODIUM CHLORIDE 0.9% IVPB (14:16)
[2021-11-14] MEDS: BENDAMUSTINE HCL IVPB (14:16)
[2021-11-14] MEDS: HEPARIN SODIUM LOCK FLUSH 500 UNITS/5 ML SYRINGE IV PUSH (14:36)
[2021-12-11 09:17] LABS: Blood Urea Nitrogen 21 mg/dL (8-26); Carbon Dioxide 23 mmol/L (22-30); Chloride 108 mmol/L (98-109); Estimated CRCL calculation 55 ml/min; Estimated Glomerular Filt Rate 54; Glucose 171 mg/dL (70-105); Ionized Calcium (POC) 1.23 mmol/L (1.11-1.31); Potassium 4.6 mmol/L (3.5-4.9); Sodium 142 mmol/L (138-146)
[2021-12-11 09:17] LABS: Basophils Percent Auto 0.4 % (0.2-1.2); Eosinophils Absolute Auto 0.2 K/mm3 (0-0.3); Eosinophils Percent Auto 4.1 % (0-4.4); Hematocrit 38.7 % (42.0-52.0); Hemoglobin 12.7 g/dL (14.0-18.0); Immature Granulocyte Absolute 0.02 K/mm3 (0.00-0.031); Immature Granulocyte Percent A 0.4 % (0-0.5); Immature Platelet Fraction Pct 3.4 % (0.9-11.2); Lymphocytes Percent Auto 10.3 % (18.3-44.2); Mean Corpuscular HGB Conc 32.8 g/dl (32-36); Mean Corpuscular Hemoglobin 30.3 pg (26-34); Mean Corpuscular Volume 92.4 fl (80-100); Monocytes Absolute Auto 0.4 K/mm3 (0.1-0.6); Monocytes Percent Auto 8.5 % (2.6-8.5); Neutrophils Absolute Auto 3.7 K/mm3 (1.3-6.7); Neutrophils Percent Auto 76.3 % (45.5-73.1); Platelet Count Result 124 k/mm3 (150-375); Red Blood Count 4.19 M/mm3 (4.6-6.20); Red Cell Distribution Width 13.2 % (11.5-14.5); White Blood Count 4.9 K/mm3 (4.5-10.0)
[2021-12-11 09:58] LABS: Alanine Aminotransferase 23 U/L (6-50); Albumin Level 3.9 g/dL (3.5-5.1); Alkaline Phosphatase 81 U/L (38-126); Anion Gap 10 mmol/L (8-16); Aspartate Amino Transferase 26 U/L (17-59); Bilirubin,Total 0.6 mg/dL (0.2-1.3); Blood Urea Nitrogen 20 mg/dL (9-20); Calcium 8.3 mg/dL (8.4-10.2); Carbon Dioxide 22 mmol/L (22-30); Chloride 110 mmol/L (98-107); Estimated CRCL calculation 60 ml/min; Estimated Glomerular Filt Rate 59; Glucose 171 mg/dL (65-110); Potassium 4.5 mmol/L (3.4-5.0); Sodium 142 mmol/L (137-145)
[2021-12-11 10:14] VITALS: BP 172/86; PULSE 59; TEMP 36.2; O2SAT 99
[2021-12-11] MEDS: ACETAMINOPHEN 325 MG TABLET 650 MG PO (10:28)
[2021-12-11] MEDS: FAMOTIDINE 20 MG/2 ML VIAL IV PUSH (10:28)
[2021-12-11] MEDS: PALONOSETRON HCL 0.25 MG/5 ML VIAL IV PUSH (10:29)
[2021-12-11] MEDS: diphenhydrAMINE HCl INJ 50 MG/ML VIAL 25 MG IV PUSH (10:29)
[2021-12-11] MEDS: RITUXIMAB ABBS IVPB (11:15)
[2021-12-11] MEDS: SODIUM CHLORIDE 0.9% IVPB ×2 (11:15→12:58)
[2021-12-11] MEDS: BENDAMUSTINE HCL IVPB (12:58)
[2021-12-11] MEDS: HEPARIN SODIUM LOCK FLUSH 500 UNITS/5 ML SYRINGE IV PUSH (13:17)
[2021-12-11 13:19] VITALS: BP 184/81
[2021-12-12 13:14] VITALS: BP 171/75; PULSE 52; TEMP 36.6
[2021-12-12] MEDS: BENDAMUSTINE HCL IVPB (14:21)
[2021-12-12] MEDS: SODIUM CHLORIDE 0.9% IVPB (14:21)
[2022-01-07 08:52] LABS: Basophils Percent Auto 0.4 % (0.2-1.2); Eosinophils Percent Auto 1.5 % (0-4.4); Hematocrit 38.7 % (42.0-52.0); Hemoglobin 13.1 g/dL (14.0-18.0); Immature Granulocyte Absolute 0.01 K/mm3 (0.00-0.031); Immature Granulocyte Percent A 0.4 % (0-0.5); Lymphocytes Absolute Auto 0.45 K/mm3 (0.9-3.2); Lymphocytes Percent Auto 17.3 % (18.3-44.2); Mean Corpuscular HGB Conc 33.9 g/dl (32-36); Mean Corpuscular Hemoglobin 30.5 pg (26-34); Mean Corpuscular Volume 90.2 fl (80-100); Mean Platelet Volume 9.9 fl (7.4-10.4); Monocytes Absolute Auto 0.4 K/mm3 (0.1-0.6); Monocytes Percent Auto 15.4 % (2.6-8.5); Neutrophils Absolute Auto 1.7 K/mm3 (1.3-6.7); Platelet Count Result 82 k/mm3 (150-375); Red Blood Count 4.29 M/mm3 (4.6-6.20); Red Cell Distribution Width 13.2 % (11.5-14.5); White Blood Count 2.6 K/mm3 (4.5-10.0)
[2022-01-07 09:00] LABS: Blood Urea Nitrogen 23 mg/dL (8-26); Carbon Dioxide 26 mmol/L (22-30); Chloride 101 mmol/L (98-109); Estimated CRCL calculation 42 ml/min; Estimated Glomerular Filt Rate 39; Glucose 172 mg/dL (70-105); Ionized Calcium (POC) 1.13 mmol/L (1.11-1.31); Potassium 4.3 mmol/L (3.5-4.9); Sodium 137 mmol/L (138-146)
[2022-01-07] MEDS: HEPARIN SODIUM LOCK FLUSH 500 UNITS/5 ML SYRINGE IV PUSH (09:18)
[2022-01-07 09:28] LABS: Alanine Aminotransferase 35 U/L (6-50); Albumin Level 3.9 g/dL (3.5-5.1); Alkaline Phosphatase 88 U/L (38-126); Anion Gap 9 mmol/L (8-16); Aspartate Amino Transferase 33 U/L (17-59); Bilirubin,Total 0.5 mg/dL (0.2-1.3); Blood Urea Nitrogen 23 mg/dL (9-20); Calcium 8.2 mg/dL (8.4-10.2); Carbon Dioxide 25 mmol/L (22-30); Chloride 102 mmol/L (98-107); Estimated CRCL calculation 45 ml/min; Estimated Glomerular Filt Rate 42; Glucose 166 mg/dL (65-110); Potassium 4.3 mmol/L (3.4-5.0); Sodium 136 mmol/L (137-145)
[2022-01-16 08:51] LABS: Basophils Percent Auto 0.3 % (0.2-1.2); Eosinophils Percent Auto 0.5 % (0-4.4); Hematocrit 37.9 % (42.0-52.0); Immature Granulocyte Absolute 0.01 K/mm3 (0.00-0.031); Immature Granulocyte Percent A 0.3 % (0-0.5); Lymphocytes Absolute Auto 0.34 K/mm3 (0.9-3.2); Mean Corpuscular HGB Conc 34.3 g/dl (32-36); Mean Corpuscular Hemoglobin 30.1 pg (26-34); Mean Corpuscular Volume 87.7 fl (80-100); Mean Platelet Volume 9.6 fl (7.4-10.4); Monocytes Absolute Auto 0.4 K/mm3 (0.1-0.6); Monocytes Percent Auto 9.8 % (2.6-8.5); Neutrophils Percent Auto 80.1 % (45.5-73.1); Platelet Count Result 117 k/mm3 (150-375); Red Blood Count 4.32 M/mm3 (4.6-6.20); Red Cell Distribution Width 12.8 % (11.5-14.5); White Blood Count 3.8 K/mm3 (4.5-10.0)
[2022-01-16 08:55] LABS: Blood Urea Nitrogen 18 mg/dL (8-26); Carbon Dioxide 22 mmol/L (22-30); Chloride 102 mmol/L (98-109); Estimated CRCL calculation 45 ml/min; Estimated Glomerular Filt Rate 49; Glucose 156 mg/dL (70-105); Ionized Calcium (POC) 1.12 mmol/L (1.11-1.31); Sodium 137 mmol/L (138-146)
[2022-01-16 09:59] VITALS: BP 117/70; PULSE 61; RESP 18; TEMP 35.8; O2SAT 100
[2022-01-16] MEDS: diphenhydrAMINE HCl INJ 50 MG/ML VIAL 25 MG IV PUSH (10:16)
[2022-01-16] MEDS: PALONOSETRON HCL 0.25 MG/5 ML VIAL IV PUSH (10:16)
[2022-01-16] MEDS: FAMOTIDINE 20 MG/2 ML VIAL IV PUSH (10:17)
[2022-01-16] MEDS: ACETAMINOPHEN 325 MG TABLET 650 MG PO (10:18)
[2022-01-16 10:37] LABS: Alanine Aminotransferase 22 U/L (6-50); Albumin Level 3.8 g/dL (3.5-5.1); Alkaline Phosphatase 95 U/L (38-126); Anion Gap 10 mmol/L (8-16); Aspartate Amino Transferase 24 U/L (17-59); Bilirubin,Total 0.6 mg/dL (0.2-1.3); Blood Urea Nitrogen 18 mg/dL (9-20); Calcium 8.2 mg/dL (8.4-10.2); Carbon Dioxide 22 mmol/L (22-30); Chloride 103 mmol/L (98-107); Estimated CRCL calculation 45 ml/min; Estimated Glomerular Filt Rate 49; Glucose 152 mg/dL (65-110); Potassium 4.1 mmol/L (3.4-5.0); Sodium 135 mmol/L (137-145)
[2022-01-16] MEDS: SODIUM CHLORIDE 0.9% IVPB ×2 (11:01→12:41)
[2022-01-16] MEDS: RITUXIMAB ABBS IVPB (11:01)
[2022-01-16] MEDS: BENDAMUSTINE HCL IVPB (12:41)
[2022-01-16 12:44] VITALS: BP 151/73
[2022-01-16] MEDS: HEPARIN SODIUM LOCK FLUSH 500 UNITS/5 ML SYRINGE IV PUSH (12:54)
[2022-01-17 13:14] VITALS: BP 155/83; PULSE 59; TEMP 36.2; O2SAT 99
[2022-01-17] MEDS: BENDAMUSTINE HCL IVPB (14:02)
[2022-01-17] MEDS: SODIUM CHLORIDE 0.9% IVPB (14:02)
[2022-01-17] MEDS: HEPARIN SODIUM LOCK FLUSH 500 UNITS/5 ML SYRINGE IV PUSH (14:16)
[2022-01-31 10:14] LABS: Eosinophils Absolute Auto 0.1 K/mm3 (0-0.3); Hematocrit 36.5 % (42.0-52.0); Hemoglobin 12.1 g/dL (14.0-18.0); Immature Granulocyte Absolute 0.03 K/mm3 (0.00-0.031); Immature Granulocyte Percent A 0.6 % (0-0.5); Lymphocytes Absolute Auto 0.21 K/mm3 (0.9-3.2); Lymphocytes Percent Auto 4.3 % (18.3-44.2); Mean Corpuscular HGB Conc 33.2 g/dl (32-36); Mean Corpuscular Volume 90.3 fl (80-100); Mean Platelet Volume 10.4 fl (7.4-10.4); Monocytes Absolute Auto 0.4 K/mm3 (0.1-0.6); Monocytes Percent Auto 8.4 % (2.6-8.5); Neutrophils Absolute Auto 4.2 K/mm3 (1.3-6.7); Neutrophils Percent Auto 85.7 % (45.5-73.1); Platelet Count Result 181 k/mm3 (150-375); Red Blood Count 4.04 M/mm3 (4.6-6.20); Red Cell Distribution Width 12.2 % (11.5-14.5); White Blood Count 4.9 K/mm3 (4.5-10.0)
[2022-01-31 10:18] LABS: Blood Urea Nitrogen 18 mg/dL (8-26); Carbon Dioxide 24 mmol/L (22-30); Chloride 99 mmol/L (98-109); Estimated CRCL calculation 48 ml/min; Estimated Glomerular Filt Rate 54; Glucose 169 mg/dL (70-105); Ionized Calcium (POC) 1.13 mmol/L (1.11-1.31); Potassium 4.4 mmol/L (3.5-4.9); Sodium 133 mmol/L (138-146)
[2022-01-31 11:39] LABS: Alanine Aminotransferase 183 U/L (6-50); Albumin Level 3.3 g/dL (3.5-5.1); Alkaline Phosphatase 121 U/L (38-126); Anion Gap 6 mmol/L (8-16); Aspartate Amino Transferase 114 U/L (17-59); Bilirubin,Total 1.5 mg/dL (0.2-1.3); Blood Urea Nitrogen 20 mg/dL (9-20); Calcium 8.2 mg/dL (8.4-10.2); Carbon Dioxide 26 mmol/L (22-30); Chloride 100 mmol/L (98-107); Estimated CRCL calculation 48 ml/min; Estimated Glomerular Filt Rate 54; Glucose 168 mg/dL (65-110); Potassium 4.6 mmol/L (3.4-5.0); Sodium 132 mmol/L (137-145)
[2022-02-13 08:43] LABS: Basophils Percent Auto 0.2 % (0.2-1.2); Eosinophils Absolute Auto 0.1 K/mm3 (0-0.3); Eosinophils Percent Auto 2.8 % (0-4.4); Hematocrit 32.2 % (42.0-52.0); Hemoglobin 10.5 g/dL (14.0-18.0); Immature Granulocyte Absolute 0.02 K/mm3 (0.00-0.031); Immature Granulocyte Percent A 0.4 % (0-0.5); Lymphocytes Absolute Auto 0.85 K/mm3 (0.9-3.2); Lymphocytes Percent Auto 18.6 % (18.3-44.2); Mean Corpuscular HGB Conc 32.6 g/dl (32-36); Mean Corpuscular Hemoglobin 30.5 pg (26-34); Mean Corpuscular Volume 93.6 fl (80-100); Mean Platelet Volume 9.6 fl (7.4-10.4); Monocytes Absolute Auto 0.4 K/mm3 (0.1-0.6); Monocytes Percent Auto 7.7 % (2.6-8.5); Neutrophils Absolute Auto 3.2 K/mm3 (1.3-6.7); Neutrophils Percent Auto 70.3 % (45.5-73.1); Platelet Count Result 120 k/mm3 (150-375); Red Blood Count 3.44 M/mm3 (4.6-6.20); Red Cell Distribution Width 13.9 % (11.5-14.5); White Blood Count 4.6 K/mm3 (4.5-10.0)
[2022-02-13 08:47] LABS: Blood Urea Nitrogen 19 mg/dL (8-26); Carbon Dioxide 28 mmol/L (22-30); Chloride 103 mmol/L (98-109); Estimated CRCL calculation 48 ml/min; Estimated Glomerular Filt Rate 54; Glucose 159 mg/dL (70-105); Ionized Calcium (POC) 1.22 mmol/L (1.11-1.31); Potassium 4.7 mmol/L (3.5-4.9); Sodium 139 mmol/L (138-146)
[2022-02-13 09:20] VITALS: BP 147/81; PULSE 63; RESP 20; TEMP 36; O2SAT 99
[2022-02-13] MEDS: PALONOSETRON HCL 0.25 MG/5 ML VIAL IV PUSH (09:42)
[2022-02-13] MEDS: diphenhydrAMINE HCl INJ 50 MG/ML VIAL 25 MG IV PUSH (09:43)
[2022-02-13] MEDS: ACETAMINOPHEN 325 MG TABLET 650 MG PO (09:43)
[2022-02-13] MEDS: FAMOTIDINE 20 MG/2 ML VIAL IV PUSH (09:43)
[2022-02-13] MEDS: SODIUM CHLORIDE 0.9% IVPB ×2 (10:24→12:05)
[2022-02-13] MEDS: RITUXIMAB ABBS IVPB (10:24)
[2022-02-13 10:55] LABS: Alanine Aminotransferase 30 U/L (6-50); Albumin Level 3.3 g/dL (3.5-5.1); Alkaline Phosphatase 87 U/L (38-126); Anion Gap 7 mmol/L (8-16); Aspartate Amino Transferase 27 U/L (17-59); Bilirubin,Total 0.6 mg/dL (0.2-1.3); Blood Urea Nitrogen 18 mg/dL (9-20); Carbon Dioxide 25 mmol/L (22-30); Chloride 106 mmol/L (98-107); Estimated CRCL calculation 52 ml/min; Estimated Glomerular Filt Rate 59; Glucose 152 mg/dL (65-110); Potassium 4.8 mmol/L (3.4-5.0); Sodium 138 mmol/L (137-145)
[2022-02-13] MEDS: BENDAMUSTINE HCL IVPB (12:05)
[2022-02-13 12:13] VITALS: BP 164/69; PULSE 56; O2SAT 98
[2022-02-13] MEDS: HEPARIN SODIUM LOCK FLUSH 500 UNITS/5 ML SYRINGE IV PUSH (12:21)
[2022-02-14 13:19] VITALS: BP 138/77; PULSE 65; TEMP 36.4; O2SAT 95
[2022-02-14] MEDS: SODIUM CHLORIDE 0.9% IVPB (14:18)
[2022-02-14] MEDS: BENDAMUSTINE HCL IVPB (14:18)
[2022-02-14] MEDS: HEPARIN SODIUM LOCK FLUSH 500 UNITS/5 ML SYRINGE IV PUSH (14:35)
[2022-03-13 08:27] LABS: Basophils Percent Auto 0.4 % (0.2-1.2); Eosinophils Absolute Auto 0.2 K/mm3 (0-0.3); Eosinophils Percent Auto 3.3 % (0-4.4); Hematocrit 34.8 % (42.0-52.0); Hemoglobin 11.4 g/dL (14.0-18.0); Immature Granulocyte Absolute 0.03 K/mm3 (0.00-0.031); Immature Granulocyte Percent A 0.6 % (0-0.5); Lymphocytes Absolute Auto 0.82 K/mm3 (0.9-3.2); Lymphocytes Percent Auto 16.8 % (18.3-44.2); Mean Corpuscular HGB Conc 32.8 g/dl (32-36); Mean Corpuscular Hemoglobin 31.2 pg (26-34); Mean Corpuscular Volume 95.3 fl (80-100); Mean Platelet Volume 9.5 fl (7.4-10.4); Monocytes Absolute Auto 0.5 K/mm3 (0.1-0.6); Monocytes Percent Auto 10.9 % (2.6-8.5); Neutrophils Absolute Auto 3.3 K/mm3 (1.3-6.7); Platelet Count Result 129 k/mm3 (150-375); Red Blood Count 3.65 M/mm3 (4.6-6.20); Red Cell Distribution Width 14.3 % (11.5-14.5); White Blood Count 4.9 K/mm3 (4.5-10.0)
[2022-03-13 08:36] LABS: Blood Urea Nitrogen 16 mg/dL (8-26); Carbon Dioxide 25 mmol/L (22-30); Chloride 106 mmol/L (98-109); Estimated CRCL calculation 57 ml/min; Estimated Glomerular Filt Rate > 60; Glucose 175 mg/dL (70-105); Ionized Calcium (POC) 1.22 mmol/L (1.11-1.31); Potassium 4.4 mmol/L (3.5-4.9); Sodium 141 mmol/L (138-146)
[2022-03-13 09:17] VITALS: PULSE 64; TEMP 36; O2SAT 95
[2022-03-13 09:28] VITALS: BP 177/90; PULSE 63; O2SAT 99
[2022-03-13] MEDS: FAMOTIDINE 20 MG/2 ML VIAL IV PUSH (09:53)
[2022-03-13] MEDS: PALONOSETRON HCL 0.25 MG/5 ML VIAL IV PUSH (09:53)
[2022-03-13] MEDS: ACETAMINOPHEN 325 MG TABLET 650 MG PO (09:53)
[2022-03-13] MEDS: diphenhydrAMINE HCl INJ 50 MG/ML VIAL 25 MG IV PUSH (09:54)
[2022-03-13] MEDS: SODIUM CHLORIDE 0.9% IVPB ×2 (10:29→12:10)
[2022-03-13] MEDS: RITUXIMAB ABBS IVPB (10:29)
[2022-03-13] MEDS: BENDAMUSTINE HCL IVPB (12:10)
[2022-03-13 12:27] VITALS: BP 180/88; PULSE 98; O2SAT 99
[2022-03-13] MEDS: HEPARIN SODIUM LOCK FLUSH 500 UNITS/5 ML SYRINGE IV PUSH (12:32)
[2022-03-13 13:17] LABS: Alanine Aminotransferase 20 U/L (6-50); Albumin Level 3.7 g/dL (3.5-5.1); Alkaline Phosphatase 83 U/L (38-126); Anion Gap 4 mmol/L (8-16); Aspartate Amino Transferase 22 U/L (17-59); Bilirubin,Total 0.5 mg/dL (0.2-1.3); Blood Urea Nitrogen 16 mg/dL (9-20); Calcium 8.4 mg/dL (8.4-10.2); Carbon Dioxide 26 mmol/L (22-30); Chloride 106 mmol/L (98-107); Estimated CRCL calculation 62 ml/min; Estimated Glomerular Filt Rate > 60; Glucose 164 mg/dL (65-110); Magnesium 1.9 mg/dL (1.6-2.3); Potassium 4.4 mmol/L (3.4-5.0); Sodium 136 mmol/L (137-145)
[2022-03-14 13:09] VITALS: BP 140/68; PULSE 62; RESP 18; TEMP 35.8; O2SAT 99
[2022-03-14] MEDS: BENDAMUSTINE HCL IVPB (14:03)
[2022-03-14] MEDS: SODIUM CHLORIDE 0.9% IVPB (14:03)
[2022-03-14] MEDS: HEPARIN SODIUM LOCK FLUSH 500 UNITS/5 ML SYRINGE IV PUSH (14:18)
[2022-04-23 09:25] LABS: Basophils Percent Auto 0.2 % (0.2-1.2); Eosinophils Absolute Auto 0.1 K/mm3 (0-0.3); Eosinophils Percent Auto 2.6 % (0-4.4); Hematocrit 40.7 % (42.0-52.0); Hemoglobin 13.5 g/dL (14.0-18.0); Immature Granulocyte Absolute 0.01 K/mm3 (0.00-0.031); Immature Granulocyte Percent A 0.2 % (0-0.5); Immature Platelet Fraction Pct 3.2 % (0.9-11.2); Lymphocytes Absolute Auto 0.51 K/mm3 (0.9-3.2); Lymphocytes Percent Auto 11.1 % (18.3-44.2); Mean Corpuscular HGB Conc 33.2 g/dl (32-36); Mean Corpuscular Hemoglobin 31.1 pg (26-34); Mean Corpuscular Volume 93.8 fl (80-100); Mean Platelet Volume 9.7 fl (7.4-10.4); Monocytes Absolute Auto 0.4 K/mm3 (0.1-0.6); Monocytes Percent Auto 8.7 % (2.6-8.5); Neutrophils Absolute Auto 3.6 K/mm3 (1.3-6.7); Neutrophils Percent Auto 77.2 % (45.5-73.1); Platelet Count Result 121 k/mm3 (150-375); Red Blood Count 4.34 M/mm3 (4.6-6.20); Red Cell Distribution Width 13.2 % (11.5-14.5); White Blood Count 4.6 K/mm3 (4.5-10.0)
[2022-04-23 09:26] LABS: Blood Urea Nitrogen 23 mg/dL (8-26); Carbon Dioxide 27 mmol/L (22-30); Chloride 104 mmol/L (98-109); Estimated CRCL calculation 42 ml/min; Estimated Glomerular Filt Rate 46; Glucose 169 mg/dL (70-105); Ionized Calcium (POC) 1.22 mmol/L (1.11-1.31); Potassium 4.8 mmol/L (3.5-4.9); Sodium 141 mmol/L (138-146)
[2022-04-23 10:24] LABS: Alanine Aminotransferase 25 U/L (6-50); Albumin Level 4.2 g/dL (3.5-5.1); Alkaline Phosphatase 80 U/L (38-126); Anion Gap 7 mmol/L (8-16); Aspartate Amino Transferase 30 U/L (17-59); Bilirubin,Total 0.7 mg/dL (0.2-1.3); Blood Urea Nitrogen 22 mg/dL (9-20); Carbon Dioxide 27 mmol/L (22-30); Chloride 107 mmol/L (98-107); Estimated CRCL calculation 48 ml/min; Estimated Glomerular Filt Rate 54; Glucose 165 mg/dL (65-110); Potassium 4.8 mmol/L (3.4-5.0); Sodium 141 mmol/L (137-145)
[2022-05-02] MEDS: HEPARIN SODIUM LOCK FLUSH 500 UNITS/5 ML SYRINGE IV PUSH (08:46)
[2022-06-26] MEDS: HEPARIN SODIUM LOCK FLUSH 500 UNITS/5 ML SYRINGE IV PUSH (08:49)
[2022-07-23 09:29] LABS: Basophils Percent Auto 0.3 % (0.2-1.2); Eosinophils Absolute Auto 0.1 K/mm3 (0-0.3); Eosinophils Percent Auto 3.1 % (0-4.4); Hematocrit 37.5 % (42.0-52.0); Hemoglobin 12.9 g/dL (14.0-18.0); Immature Granulocyte Absolute 0.01 K/mm3 (0.00-0.031); Immature Granulocyte Percent A 0.3 % (0-0.5); Lymphocytes Percent Auto 10.4 % (18.3-44.2); Mean Corpuscular HGB Conc 34.4 g/dl (32-36); Mean Corpuscular Hemoglobin 32.2 pg (26-34); Mean Corpuscular Volume 93.5 fl (80-100); Mean Platelet Volume 9.3 fl (7.4-10.4); Monocytes Absolute Auto 0.4 K/mm3 (0.1-0.6); Monocytes Percent Auto 9.9 % (2.6-8.5); Neutrophils Absolute Auto 2.9 K/mm3 (1.3-6.7); Platelet Count Result 116 k/mm3 (150-375); Red Blood Count 4.01 M/mm3 (4.6-6.20); Red Cell Distribution Width 13.1 % (11.5-14.5); White Blood Count 3.9 K/mm3 (4.5-10.0)
[2022-07-23 12:39] LABS: Alanine Aminotransferase 29 U/L (6-50); Alkaline Phosphatase 75 U/L (38-126); Anion Gap 7 mmol/L (8-16); Aspartate Amino Transferase 24 U/L (17-59); Bilirubin,Total 0.7 mg/dL (0.2-1.3); Blood Urea Nitrogen 16 mg/dL (9-20); Calcium 8.3 mg/dL (8.4-10.2); Carbon Dioxide 25 mmol/L (22-30); Chloride 107 mmol/L (98-107); Estimated CRCL calculation 52 ml/min; Estimated Glomerular Filt Rate 59; Glucose 177 mg/dL (65-110); Lactate Dehydrogenase 144 U/L (120-246); Potassium 4.7 mmol/L (3.4-5.0); Sodium 139 mmol/L (137-145)
[2022-08-14] MEDS: HEPARIN SODIUM LOCK FLUSH 500 UNITS/5 ML SYRINGE IV PUSH (08:40)
--- NOTE | 2022-08-14 09:01 | PC.NURSE ---
Port flushed. No labs drawn today.
[2022-10-09] MEDS: HEPARIN SODIUM LOCK FLUSH 500 UNITS/5 ML SYRINGE IV PUSH (08:52)
[2022-10-31 10:24] LABS: Basophils Percent Auto 0.2 % (0.2-1.2); Eosinophils Absolute Auto 0.1 K/mm3 (0-0.3); Eosinophils Percent Auto 1.6 % (0-4.4); Hematocrit 40.3 % (42.0-52.0); Hemoglobin 13.4 g/dL (14.0-18.0); Immature Granulocyte Absolute 0.02 K/mm3 (0.00-0.031); Immature Granulocyte Percent A 0.4 % (0-0.5); Lymphocytes Absolute Auto 0.49 K/mm3 (0.9-3.2); Lymphocytes Percent Auto 8.7 % (18.3-44.2); Mean Corpuscular HGB Conc 33.3 g/dl (32-36); Mean Corpuscular Hemoglobin 32.7 pg (26-34); Mean Corpuscular Volume 98.3 fl (80-100); Mean Platelet Volume 9.9 fl (7.4-10.4); Monocytes Absolute Auto 0.4 K/mm3 (0.1-0.6); Monocytes Percent Auto 6.6 % (2.6-8.5); Neutrophils Absolute Auto 4.7 K/mm3 (1.3-6.7); Neutrophils Percent Auto 82.5 % (45.5-73.1); Platelet Count Result 134 k/mm3 (150-375); Red Cell Distribution Width 12.3 % (11.5-14.5); White Blood Count 5.6 K/mm3 (4.5-10.0)
[2022-10-31 11:30] LABS: Anion Gap 6 mmol/L (8-16); Bilirubin,Total 0.8 mg/dL (0.2-1.3); Blood Urea Nitrogen 18 mg/dL (9-20); Calcium 9.1 mg/dL (8.4-10.2); Carbon Dioxide 27 mmol/L (22-30); Chloride 105 mmol/L (98-107); Estimated CRCL calculation 48 ml/min; Estimated Glomerular Filt Rate 54; Glucose 212 mg/dL (65-110); Sodium 138 mmol/L (137-145)
[2022-10-31 11:31] LABS: Alanine Aminotransferase 36 U/L (6-50); Albumin Level 4.4 g/dL (3.5-5.1); Alkaline Phosphatase 75 U/L (38-126); Aspartate Amino Transferase 33 U/L (17-59); Lactate Dehydrogenase 153 U/L (120-246)
[2022-12-04] MEDS: HEPARIN SODIUM LOCK FLUSH 500 UNITS/5 ML SYRINGE IV PUSH (08:50)
[2023-01-29 10:14] LABS: Basophils Percent Auto 0.4 % (0.2-1.2); Eosinophils Absolute Auto 0.1 K/mm3 (0-0.3); Eosinophils Percent Auto 1.9 % (0-4.4); Hematocrit 36.9 % (42.0-52.0); Hemoglobin 13.2 g/dL (14.0-18.0); Immature Granulocyte Absolute 0.03 K/mm3 (0.00-0.031); Immature Granulocyte Percent A 0.6 % (0-0.5); Lymphocytes Absolute Auto 0.68 K/mm3 (0.9-3.2); Lymphocytes Percent Auto 12.9 % (18.3-44.2); Mean Corpuscular HGB Conc 35.8 g/dl (32-36); Mean Corpuscular Hemoglobin 33.8 pg (26-34); Mean Corpuscular Volume 94.6 fl (80-100); Mean Platelet Volume 9.8 fl (7.4-10.4); Monocytes Absolute Auto 0.4 K/mm3 (0.1-0.6); Monocytes Percent Auto 7.6 % (2.6-8.5); Neutrophils Absolute Auto 4.1 K/mm3 (1.3-6.7); Neutrophils Percent Auto 76.6 % (45.5-73.1); Platelet Count Result 128 k/mm3 (150-375); Red Cell Distribution Width 12.2 % (11.5-14.5); White Blood Count 5.3 K/mm3 (4.5-10.0)
[2023-01-29 17:08] LABS: Alanine Aminotransferase 50 U/L (6-50); Albumin Level 4.2 g/dL (3.5-5.1); Alkaline Phosphatase 83 U/L (38-126); Anion Gap 8 mmol/L (8-16); Aspartate Amino Transferase 37 U/L (17-59); Bilirubin,Total 0.8 mg/dL (0.2-1.3); Blood Urea Nitrogen 22 mg/dL (9-20); Calcium 9.5 mg/dL (8.4-10.2); Carbon Dioxide 25 mmol/L (22-30); Chloride 103 mmol/L (98-107); Estimated CRCL calculation 48 ml/min; Estimated Glomerular Filt Rate 54; Glucose 227 mg/dL (65-110); Lactate Dehydrogenase 165 U/L (120-246); Magnesium 1.9 mg/dL (1.6-2.3); Potassium 5.2 mmol/L (3.4-5.0); Sodium 136 mmol/L (137-145)
[2023-02-03] MEDS: HEPARIN SODIUM LOCK FLUSH 500 UNITS/5 ML SYRINGE IV PUSH (08:50)
[2023-03-24] MEDS: HEPARIN SODIUM LOCK FLUSH 500 UNITS/5 ML SYRINGE IV PUSH (08:42)
[2023-05-05 09:37] LABS: Basophils Percent Auto 0.2 % (0.2-1.2); Eosinophils Absolute Auto 0.1 K/mm3 (0-0.3); Eosinophils Percent Auto 1.8 % (0-4.4); Hemoglobin 12.8 g/dL (14.0-18.0); Immature Granulocyte Absolute 0.02 K/mm3 (0.00-0.031); Immature Granulocyte Percent A 0.4 % (0-0.5); Immature Platelet Fraction Pct 3.7 % (0.9-11.2); Lymphocytes Percent Auto 13.7 % (18.3-44.2); Mean Corpuscular HGB Conc 33.7 g/dl (32-36); Mean Corpuscular Hemoglobin 32.6 pg (26-34); Mean Corpuscular Volume 96.7 fl (80-100); Monocytes Absolute Auto 0.4 K/mm3 (0.1-0.6); Neutrophils Absolute Auto 3.9 K/mm3 (1.3-6.7); Neutrophils Percent Auto 75.9 % (45.5-73.1); Platelet Count Result 149 k/mm3 (150-375); Red Blood Count 3.93 M/mm3 (4.6-6.20); Red Cell Distribution Width 12.1 % (11.5-14.5); White Blood Count 5.1 K/mm3 (4.5-10.0)
[2023-05-05 14:29] LABS: Alanine Aminotransferase 32 U/L (6-50); Albumin Level 4.3 g/dL (3.5-5.1); Alkaline Phosphatase 63 U/L (38-126); Anion Gap 7 mmol/L (8-16); Aspartate Amino Transferase 28 U/L (17-59); Bilirubin,Total 0.6 mg/dL (0.2-1.3); Blood Urea Nitrogen 21 mg/dL (9-20); Calcium 9.3 mg/dL (8.4-10.2); Carbon Dioxide 26 mmol/L (22-30); Chloride 106 mmol/L (98-107); Estimated CRCL calculation 37 ml/min; Estimated Glomerular Filt Rate 39; Glucose 266 mg/dL (65-110); Lactate Dehydrogenase 143 U/L (120-246); Potassium 4.8 mmol/L (3.4-5.0); Sodium 139 mmol/L (137-145)
[2023-05-19] MEDS: HEPARIN SODIUM LOCK FLUSH 500 UNITS/5 ML SYRINGE IV PUSH (08:39)
[2023-07-15] MEDS: HEPARIN SODIUM LOCK FLUSH 500 UNITS/5 ML SYRINGE IV PUSH (14:11)
[2023-08-13 08:50] LABS: Basophils Percent Auto 0.2 % (0.2-1.2); Eosinophils Absolute Auto 0.1 K/mm3 (0-0.3); Eosinophils Percent Auto 1.9 % (0-4.4); Hematocrit 36.8 % (42.0-52.0); Hemoglobin 12.5 g/dL (14.0-18.0); Immature Granulocyte Absolute 0.02 K/mm3 (0.00-0.031); Immature Granulocyte Percent A 0.4 % (0-0.5); Lymphocytes Absolute Auto 0.86 K/mm3 (0.9-3.2); Lymphocytes Percent Auto 18.6 % (18.3-44.2); Mean Corpuscular Hemoglobin 32.3 pg (26-34); Mean Corpuscular Volume 95.1 fl (80-100); Mean Platelet Volume 9.8 fl (7.4-10.4); Monocytes Absolute Auto 0.4 K/mm3 (0.1-0.6); Neutrophils Absolute Auto 3.3 K/mm3 (1.3-6.7); Neutrophils Percent Auto 70.9 % (45.5-73.1); Platelet Count Result 127 k/mm3 (150-375); Red Blood Count 3.87 M/mm3 (4.6-6.20); Red Cell Distribution Width 12.2 % (11.5-14.5); White Blood Count 4.6 K/mm3 (4.5-10.0)
[2023-08-13 13:17] LABS: Anion Gap 7 mmol/L (4-12); Blood Urea Nitrogen 18 mg/dL (9-20); Carbon Dioxide 23 mmol/L (22-30); Chloride 110 mmol/L (98-107); Estimated CRCL calculation 39 ml/min; Estimated Glomerular Filt Rate 42; Glucose 187 mg/dL (65-110); Lactate Dehydrogenase 128 U/L (120-246); Sodium 140 mmol/L (137-145)
[2023-09-18] MEDS: HEPARIN SODIUM LOCK FLUSH 500 UNITS/5 ML SYRINGE IV PUSH (14:12)
[2023-11-13] MEDS: HEPARIN SODIUM LOCK FLUSH 500 UNITS/5 ML SYRINGE IV PUSH (08:44)
[2023-11-24 10:43] LABS: Basophils Absolute Auto 0.1 K/mm3 (0.0-0.1); Basophils Percent Auto 0.5 % (0.2-1.2); Eosinophils Absolute Auto 0.2 K/mm3 (0-0.3); Eosinophils Percent Auto 1.7 % (0-4.4); Hemoglobin 11.8 g/dL (14.0-18.0); Immature Granulocyte Absolute 0.08 K/mm3 (0.00-0.031); Immature Granulocyte Percent A 0.9 % (0-0.5); Immature Platelet Fraction Pct 6.9 % (0.9-11.2); Lymphocytes Absolute Auto 1.73 K/mm3 (0.9-3.2); Lymphocytes Percent Auto 18.4 % (18.3-44.2); Mean Corpuscular HGB Conc 32.8 g/dl (32-36); Mean Corpuscular Hemoglobin 31.3 pg (26-34); Mean Corpuscular Volume 95.5 fl (80-100); Mean Platelet Volume 10.4 fl (7.4-10.4); Neutrophils Absolute Auto 6.3 K/mm3 (1.3-6.7); Neutrophils Percent Auto 67.5 % (45.5-73.1); Platelet Count Result 50 k/mm3 (150-375); Red Blood Count 3.77 M/mm3 (4.6-6.20); Red Cell Distribution Width 12.7 % (11.5-14.5); White Blood Count 9.4 K/mm3 (4.5-10.0)
[2023-11-24 10:45] LABS: Atypical Lymphocytes Present; Platelet Estimate Decreased (Adequate); Schistocytes None Seen
[2023-11-24 13:38] LABS: Anion Gap 10 mmol/L (4-12); Blood Urea Nitrogen 25 mg/dL (9-20); Calcium 8.9 mg/dL (8.4-10.2); Carbon Dioxide 22 mmol/L (22-30); Chloride 103 mmol/L (98-107); Estimated CRCL calculation 39 ml/min; Estimated Glomerular Filt Rate 42; Glucose 187 mg/dL (65-110); Sodium 135 mmol/L (137-145)
--- NOTE | 2024-01-06 15:15 | PHAR ---
Biosimilar substitution per protocol: Rituxan will be subbed to Riabni (rituximab-arrx) ([employer]). Patient will be notified of substitution by nurse during education or at their first treatment.
--- NOTE | 2024-01-06 15:15 | PHAR ---
Biosimilar substitution per protocol: Neulasta will be subbed to Fylnetra PFS ([id number]-pbbk) ([employer]). Patient will be notified of substitution by nurse during education or at their first treatment.
--- NOTE | 2024-01-06 15:16 | PHAR ---
RITUXAN ROUNDED FROM 825 MG TO 800 MG FOR A 3% DECREASE TO REDUCE WASTE DUE TO VIAL SIZE.
[2024-01-12 10:17] LABS: Basophils Percent Auto 0.4 % (0.2-1.2); Eosinophils Percent Auto 0.1 % (0-4.4); Hematocrit 30.8 % (42.0-52.0); Hemoglobin 10.2 g/dL (14.0-18.0); Immature Granulocyte Absolute 0.06 K/mm3 (0.00-0.031); Immature Granulocyte Percent A 0.8 % (0-0.5); Lymphocytes Absolute Auto 0.55 K/mm3 (0.9-3.2); Lymphocytes Percent Auto 7.4 % (18.3-44.2); Mean Corpuscular HGB Conc 33.1 g/dl (32-36); Mean Corpuscular Hemoglobin 33.8 pg (26-34); Mean Platelet Volume 9.2 fl (7.4-10.4); Monocytes Absolute Auto 0.7 K/mm3 (0.1-0.6); Monocytes Percent Auto 8.8 % (2.6-8.5); Neutrophils Absolute Auto 6.1 K/mm3 (1.3-6.7); Neutrophils Percent Auto 82.5 % (45.5-73.1); Platelet Count Result 98 k/mm3 (150-375); Red Blood Count 3.02 M/mm3 (4.6-6.20); Red Cell Distribution Width 20.9 % (11.5-14.5); White Blood Count 7.4 K/mm3 (4.5-10.0)
[2024-01-12 11:05] LABS: Alanine Aminotransferase 31 U/L (6-50); Albumin Level 3.8 g/dL (3.5-5.1); Alkaline Phosphatase 104 U/L (38-126); Anion Gap 8 mmol/L (4-12); Aspartate Amino Transferase 28 U/L (17-59); Bilirubin,Total 1.1 mg/dL (0.2-1.3); Blood Urea Nitrogen 17 mg/dL (9-20); Calcium 8.7 mg/dL (8.4-10.2); Carbon Dioxide 27 mmol/L (22-30); Chloride 102 mmol/L (98-107); Estimated CRCL calculation 50 ml/min; Estimated Glomerular Filt Rate 59; Glucose 174 mg/dL (65-110); Potassium 4.6 mmol/L (3.4-5.0); Sodium 137 mmol/L (137-145)
[2024-01-12 11:35] LABS: Hepatitis B Surface Antigen Negative (Negative)
[2024-01-13 08:26] VITALS: BP 131/78; PULSE 69; TEMP 36.1; O2SAT 99
[2024-01-13] MEDS: OLANZapine DISPERTAB 5 MG PO (08:53)
[2024-01-13] MEDS: FAMOTIDINE 20 MG/2 ML VIAL IV PUSH (08:54)
[2024-01-13] MEDS: ACETAMINOPHEN 325 MG TABLET 650 MG PO (08:54)
[2024-01-13] MEDS: diphenhydrAMINE HCl INJ 50 MG/ML VIAL 25 MG IV PUSH (08:54)
[2024-01-13] MEDS: PALONOSETRON HCL 0.25 MG/5 ML VIAL IV PUSH (08:54)
[2024-01-13] MEDS: FOSAPREPITANT DIMEGLUMINE 150 MG in SODIUM CHLORIDE 0.9% IV 150 ML 300 MG IVPB (09:04)
[2024-01-13] MEDS: dexAMETHasone SOD 4 MG/ML INJ 12 MG in SODIUM CHLORIDE 0.9% IV 100 ML 206 MG IVPB (09:07)
[2024-01-13] MEDS: RITUXIMAB ARRX IVPB (09:56)
[2024-01-13] MEDS: SODIUM CHLORIDE 0.9% IVPB ×2 (09:56→14:11)
[2024-01-13] MEDS: vinCRIStine SULFATE (*CHEMO) 2 MG in SODIUM CHLORIDE 0.9% IV 50 ML 312 MG IVPB (13:53)
--- NOTE | 2024-01-13 14:01 | PHAR ---
Absolute neutrophil count between 5,000 and 8,000 today at 6.1. Contacted doctor and doctor would like patient to get injection tomorrow.
[2024-01-13] MEDS: CYCLOPHOSPHAMIDE IVPB (14:11)
[2024-01-13] MEDS: DOXORUBICIN 110 MG IV PUSH (14:56)
[2024-01-13] MEDS: HEPARIN SODIUM LOCK FLUSH 500 UNITS/5 ML SYRINGE IV PUSH (15:14)
[2024-01-13 15:17] VITALS: BP 126/67
[2024-01-14 12:14] VITALS: BP 116/62; PULSE 65; O2SAT 100
[2024-01-14] MEDS: PEGFILGRASTIM-PBBK 6 MG/0.6 ML SYRINGE SUB-Q (12:25)
[2024-02-03 08:41] LABS: Blood Urea Nitrogen 21 mg/dL (8-26); Carbon Dioxide 20 mmol/L (22-30); Chloride 102 mmol/L (98-109); Estimated CRCL calculation 44 ml/min; Estimated Glomerular Filt Rate 49; Glucose 237 mg/dL (70-105); Potassium 4.6 mmol/L (3.5-4.9); Sodium 138 mmol/L (138-146)
[2024-02-03 08:46] LABS: Basophils Absolute Auto 0.1 K/mm3 (0.0-0.1); Basophils Percent Auto 0.6 % (0.2-1.2); Eosinophils Percent Auto 0.2 % (0-4.4); Hematocrit 33.9 % (42.0-52.0); Immature Granulocyte Absolute 0.15 K/mm3 (0.00-0.031); Immature Granulocyte Percent A 1.6 % (0-0.5); Immature Platelet Fraction Pct 9.5 % (0.9-11.2); Lymphocytes Absolute Auto 0.77 K/mm3 (0.9-3.2); Mean Corpuscular HGB Conc 32.4 g/dl (32-36); Mean Corpuscular Hemoglobin 34.5 pg (26-34); Mean Corpuscular Volume 106.3 fl (80-100); Mean Platelet Volume 12.1 fl (7.4-10.4); Monocytes Absolute Auto 0.9 K/mm3 (0.1-0.6); Monocytes Percent Auto 9.1 % (2.6-8.5); Neutrophils Absolute Auto 7.8 K/mm3 (1.3-6.7); Neutrophils Percent Auto 80.5 % (45.5-73.1); Red Blood Count 3.19 M/mm3 (4.6-6.20); Red Cell Distribution Width 18.9 % (11.5-14.5); White Blood Count 9.6 K/mm3 (4.5-10.0)
[2024-02-03 08:49] LABS: Platelet Count Result 18 k/mm3 (150-375)
--- NOTE | 2024-02-03 09:07 | PC.NURSE ---
Patient's treatment cancelled due to low platelet count. Rescheduled for next week.
[2024-02-03 11:49] LABS: Alanine Aminotransferase 17 U/L (6-50); Albumin Level 3.5 g/dL (3.5-5.1); Alkaline Phosphatase 96 U/L (38-126); Anion Gap 11 mmol/L (4-12); Aspartate Amino Transferase 33 U/L (17-59); Blood Urea Nitrogen 24 mg/dL (9-20); Calcium 8.9 mg/dL (8.4-10.2); Carbon Dioxide 20 mmol/L (22-30); Chloride 105 mmol/L (98-107); Estimated CRCL calculation 44 ml/min; Estimated Glomerular Filt Rate 49; Glucose 226 mg/dL (65-110); Potassium 4.7 mmol/L (3.4-5.0); Sodium 136 mmol/L (137-145)
[2024-02-09 15:42] LABS: Basophils Absolute Auto 0.1 K/mm3 (0.0-0.1); Basophils Percent Auto 0.5 % (0.2-1.2); Eosinophils Percent Auto 0.2 % (0-4.4); Hematocrit 26.5 % (42.0-52.0); Hemoglobin 8.3 g/dL (14.0-18.0); Immature Granulocyte Absolute 0.69 K/mm3 (0.00-0.031); Immature Platelet Fraction Pct 14.6 % (0.9-11.2); Lymphocytes Absolute Auto 1.54 K/mm3 (0.9-3.2); Lymphocytes Percent Auto 8.8 % (18.3-44.2); Mean Corpuscular HGB Conc 31.3 g/dl (32-36); Mean Corpuscular Hemoglobin 34.9 pg (26-34); Mean Corpuscular Volume 111.3 fl (80-100); Mean Platelet Volume 13.5 fl (7.4-10.4); Monocytes Absolute Auto 2.7 K/mm3 (0.1-0.6); Monocytes Percent Auto 15.4 % (2.6-8.5); Neutrophils Absolute Auto 12.4 K/mm3 (1.3-6.7); Neutrophils Percent Auto 71.1 % (45.5-73.1); Nucleated Red Blood Cells Perc 1.5 % (0.0-0.2); Red Blood Count 2.38 M/mm3 (4.6-6.20); Red Cell Distribution Width 20.1 % (11.5-14.5); White Blood Count 17.4 K/mm3 (4.5-10.0)
[2024-02-09 15:45] LABS: Platelet Count Result 25 k/mm3 (150-375)
[2024-02-09 16:38] LABS: Alanine Aminotransferase 15 U/L (6-50); Albumin Level 3.3 g/dL (3.5-5.1); Alkaline Phosphatase 102 U/L (38-126); Anion Gap 11 mmol/L (4-12); Aspartate Amino Transferase 58 U/L (17-59); Bilirubin,Total 1.1 mg/dL (0.2-1.3); Blood Urea Nitrogen 32 mg/dL (9-20); Calcium 9.4 mg/dL (8.4-10.2); Carbon Dioxide 17 mmol/L (22-30); Chloride 111 mmol/L (98-107); Estimated CRCL calculation 34 ml/min; Estimated Glomerular Filt Rate 37; Glucose 228 mg/dL (65-110); Potassium 5.4 mmol/L (3.4-5.0); Sodium 139 mmol/L (137-145)
[2024-02-12 09:06] VITALS: BP 89/49; PULSE 64; TEMP 36.3; O2SAT 99
[2024-02-12 09:09] LABS: Blood Urea Nitrogen 64 mg/dL (8-26); Carbon Dioxide 13 mmol/L (22-30); Chloride 109 mmol/L (98-109); Estimated CRCL calculation 22 ml/min; Estimated Glomerular Filt Rate 22; Glucose 219 mg/dL (70-105); Potassium 4.9 mmol/L (3.5-4.9); Sodium 139 mmol/L (138-146)
[2024-02-12 09:10] LABS: Basophils Absolute Auto 0.1 K/mm3 (0.0-0.1); Basophils Percent Auto 0.4 % (0.2-1.2); Eosinophils Absolute Auto 0.2 K/mm3 (0-0.3); Eosinophils Percent Auto 0.7 % (0-4.4); Hematocrit 24.9 % (42.0-52.0); Hemoglobin 7.7 g/dL (14.0-18.0); Immature Granulocyte Absolute 1.09 K/mm3 (0.00-0.031); Immature Granulocyte Percent A 4.7 % (0-0.5); Immature Platelet Fraction Pct 15.7 % (0.9-11.2); Lymphocytes Absolute Auto 2.22 K/mm3 (0.9-3.2); Lymphocytes Percent Auto 9.6 % (18.3-44.2); Mean Corpuscular HGB Conc 30.9 g/dl (32-36); Mean Corpuscular Hemoglobin 35.5 pg (26-34); Mean Corpuscular Volume 114.7 fl (80-100); Mean Platelet Volume 12.3 fl (7.4-10.4); Monocytes Absolute Auto 4.2 K/mm3 (0.1-0.6); Monocytes Percent Auto 18.2 % (2.6-8.5); Neutrophils Absolute Auto 15.4 K/mm3 (1.3-6.7); Neutrophils Percent Auto 66.4 % (45.5-73.1); Nucleated Red Blood Cells Perc 10.6 % (0.0-0.2); Platelet Count Result 23 k/mm3 (150-375); Red Blood Count 2.17 M/mm3 (4.6-6.20); Red Cell Distribution Width 21.2 % (11.5-14.5); White Blood Count 23.1 K/mm3 (4.5-10.0)
[2024-02-12 11:18] LABS: Alanine Aminotransferase 16 U/L (6-50); Albumin Level 3.3 g/dL (3.5-5.1); Alkaline Phosphatase 109 U/L (38-126); Anion Gap 16 mmol/L (4-12); Aspartate Amino Transferase 48 U/L (17-59); Blood Urea Nitrogen 61 mg/dL (9-20); Calcium 9.1 mg/dL (8.4-10.2); Carbon Dioxide 12 mmol/L (22-30); Chloride 110 mmol/L (98-107); Estimated CRCL calculation 23 ml/min; Estimated Glomerular Filt Rate 23; Glucose 209 mg/dL (65-110); Potassium 4.9 mmol/L (3.4-5.0); Sodium 138 mmol/L (137-145)
== END 2024-02-17 14:07 ==
LOC: AMCINF 09:00
PROVIDERS: Visit Provider Internal Medicine Hematology & Oncology
DX: C91.10 Chronic lymphocytic leukemia of B-cell type not having achieved remission (principal); I10 Essential (primary) hypertension; J90 Pleural effusion, not elsewhere classified; E11.9 Type 2 diabetes mellitus without complications; E78.5 Hyperlipidemia, unspecified; D59.9 Acquired hemolytic anemia, unspecified; Z87.891 Personal history of nicotine dependence; Z86.19 Personal history of other infectious and parasitic diseases
CPT/HCPCS: 36415; 36591; 36592; 80047; 80048; 80053; 83010; 83036; 83615; 83735; 85025; 85046; 85055; 86850; 86880; 86900; 86901; 86923; 87340; 96367; 96368; 96372; 96375; 96409; 96411; 96413; 96415; 96417; 96523; 99213; A9270; G0463; J1100; J1200; J1453; J2175; J2469; J2930; J7030; J7050; J9000; J9034; J9075; J9301; J9370; Q5115; Q5123; Q5130

== ENCOUNTER 2024-02-12 10:21 | Emergency (ER) | payer MEDICARE, OTHER, SELFPAY ==
[2024-02-12] VITALS (30 sets, daily range): BP systolic 85–132; BP diastolic 47–77; PULSE 55–72; RESP 18–36; TEMP 36.2; O2SAT 89–100
--- NOTE | ~2024-02-12 | XR_ITS ---
XR chest 2V Ordering provider: Radha Lawrence History: 78 years Male with . SOB, tachypnea . Comparison: September 26, 2021 FINDINGS: MEDIASTINUM: The cardiac silhouette is slightly enlarged. Left Port-A-Cath with the tip overlying sup erior vena cava. Prominent both gildardo. LUNGS: No pneumothorax. Opacification the left lung base seen suggestive of atelectasis versus pneumo damien with pleural effusion. OTHER: No free air under the diaphragm. IMPRESSION: Left basal atelectasis versus pneumonia with pleural effusion. Reviewed, dictated and finalized at location A. INTHOLOGY TEACHER
--- NOTE | 2024-02-12 11:07 | ECG_ITS ---
Test Date: 2024-02-12 11:21:34 Measurements Intervals [place] Rate: 62 P: 20 CO: 150 QRS: -5 QRSD: 107 T: -10 QT: 447 QTc: 456 Interpretive Statements SINUS RHYTHM MINIMAL VOLTAGE CRITERIA FOR LVH, CONSIDER NORMAL VARIANT [MEETS CRITERIA IN ONE OF: R(aVL), S(V1), R(V5), R(V5/V6)+S(V1)] NONSPECIFIC T-WAVE ABNORMALITY ABNORMAL ECG Electronically Signed On 02-12-2024 12:08:31 [employer] by Jeffery Almonte M.D.
[2024-02-12 11:11] LABS: Basophils Absolute Auto 0.1 K/mm3 (0.0-0.1); Basophils Percent Auto 0.5 % (0.2-1.2); Eosinophils Absolute Auto 0.1 K/mm3 (0-0.3); Eosinophils Percent Auto 0.4 % (0-4.4); Hematocrit 25.7 % (42.0-52.0); Hemoglobin 7.9 g/dL (14.0-18.0); Immature Granulocyte Absolute 1.04 K/mm3 (0.00-0.031); Immature Granulocyte Percent A 4.8 % (0-0.5); Immature Platelet Fraction Pct 16.5 % (0.9-11.2); Lymphocytes Absolute Auto 1.56 K/mm3 (0.9-3.2); Lymphocytes Percent Auto 7.2 % (18.3-44.2); Mean Corpuscular HGB Conc 30.7 g/dl (32-36); Mean Corpuscular Hemoglobin 35.3 pg (26-34); Mean Corpuscular Volume 114.7 fl (80-100); Mean Platelet Volume 13.2 fl (7.4-10.4); Monocytes Absolute Auto 3.6 K/mm3 (0.1-0.6); Monocytes Percent Auto 16.7 % (2.6-8.5); Neutrophils Absolute Auto 15.3 K/mm3 (1.3-6.7); Neutrophils Percent Auto 70.4 % (45.5-73.1); Nucleated Red Blood Cells Perc 10.9 % (0.0-0.2); Red Blood Count 2.24 M/mm3 (4.6-6.20); Red Cell Distribution Width 21.9 % (11.5-14.5); White Blood Count 21.7 K/mm3 (4.5-10.0)
[2024-02-12 11:22] LABS: INR 1.4; Partial Thromboplastin Time 35.1 Seconds (22.3-36.8)
[2024-02-12 11:24] LABS: Alanine Aminotransferase 15 U/L (6-50); Albumin Level 3.5 g/dL (3.5-5.1); Alkaline Phosphatase 114 U/L (38-126); Anion Gap 18 mmol/L (4-12); Aspartate Amino Transferase 47 U/L (17-59); Blood Urea Nitrogen 63 mg/dL (9-20); Calcium 9.3 mg/dL (8.4-10.2); Carbon Dioxide 12 mmol/L (22-30); Chloride 110 mmol/L (98-107); Estimated CRCL calculation 20 ml/min; Estimated Glomerular Filt Rate 22; Glucose 204 mg/dL (65-110); Potassium 5.4 mmol/L (3.4-5.0); Sodium 140 mmol/L (137-145)
[2024-02-12] MEDS: SODIUM CHLORIDE 0.9% IV 1,000 ML 999 ML IV CONT ×3 (11:28→12:49)
[2024-02-12 11:36] LABS: Platelet Count Result 21 k/mm3 (150-375)
[2024-02-12 11:37] LABS: Anisocytosis 1+; Macrocytosis 2+ (NORMAL); Platelet Estimate Decreased (Adequate); Schistocytes None Seen
--- NOTE | 2024-02-12 12:03 | ED.GENADULT ---
HPI - General Adult General Chief complaint: Recheck/Abnormal Lab/Rx Stated complaint: abn labs Time Seen by Provider: 02/12/24 11:48 History of Present Illness HPI narrative: 78-year-old male presenting to the emergency department for evaluation for low hemoglobin low platelets. Patient does have history of CLL and had a recent recurrence. Patient is now following up with Dr Renteria and is getting chemotherapy. Patient was scheduled to have chemotherapy today when his platelets were to low and patient was referred to the emergency department. Patient's only complaint is feeling excessively fatigued over the last 2 weeks. Patient denies any falls or injuries. Patient denies any coughs colds or fevers. Patient denies any chest pain or shortness of breath. Patient did have a couple episodes of diarrhea but nothing significant. Patient denies any associated abdominal pain. Patient denies any active bleeding. Related Data Home Medications ?Medication ?Instructions ?Recorded ?Confirmed ?Last Taken ?Type echinacea 400 mg capsule 400 mg PO HS 08/07/21 01/14/24 09/23/21 History ferrous sulfate 325 mg (65 mg 325 mg PO HS 08/07/21 01/14/24 09/25/21 History iron) tablet (Iron (ferrous sulfate)) multivitamin 1 cap PO HS 08/07/21 02/03/24 09/23/21 History allopurinol 100 mg tablet 100 mg PO DAILY 01/14/24 01/14/24 Unknown History furosemide 20 mg tablet 20 mg PO QAM 01/14/24 01/14/24 Unknown History olanzapine 5 mg tablet 5 mg PO DAILY 01/14/24 01/14/24 Unknown History ondansetron HCl 8 mg tablet 8 mg PO Q8H 01/14/24 01/14/24 Unknown History prednisone 20 mg tablet 20 mg PO BID 01/14/24 01/14/24 Unknown History valacyclovir 500 mg tablet 500 mg PO DAILY 01/14/24 01/14/24 Unknown History Allergies Allergy/AdvReac Type Severity Reaction Status Date / Time No Known Allergies Allergy Verified 02/12/24 11:50 Review of Systems Review of Systems: All systems reviewed & are unremarkable except as noted in HPI and below PMFSH Past Medical History Medical History (Updated 02/12/24 @ 17:29 by Beverley Garcia DO) Obesity (BMI 30.0-34.9) H/O hepatitis Squamous cell carcinoma Diabetes Hyperlipidemia Hypertension (Unknown) CLL (chronic lymphocytic leukemia) (~02/2019) With recurrence in October or November 2023 Surgical History Surgical History (Updated 02/12/24 @ 17:14 by Beverley Garcia DO) Status post cataract extraction of both eyes with insertion of intraocular lens History of removal of Port-a-Cath 08/13/21 Family History Family History Father Alcoholism Rheumatoid arthritis Social History Social History (Updated 02/12/24 @ 16:21 by Beverley Garcia DO) Social History: The patient and his have been for 19 years. The patient denies having any children. He is a lifelong nonsmoker. He occasionally drinks a beer when he goes golfing. He denies history of illicit substance use. He used to work for the [employer]. Code status: Full code Surrogate decision maker: Smoking status: Never smoker Tobacco type: cigars Second hand tobacco smoke exposure: No Smoking end date: 06/17/04 Alcohol intake: current Drinks per week: 2 Substance use: never Substance use type: does not use Lack of Transportation: No Lack of Food: Never True Current Housing: I Have Housing Concerned About Future Housing: No Difficulty Paying Gas/Electric Bills: No Difficulty Paying for Meds: No Currently Unemployed: No Education: Associate Degree Difficulty w/ Childcare or Family Care: No Living arrangements: with family Gender identity (if verbalized by the patient): Male Sexual Orientation (if Verbalized by the Patient): Straight or Heterosexual Spiritual care concerns: No Agree to blood products: Yes Exam Narrative: APPEARANCE: Well appearing, no pain, no distress, well-nourished. HEAD: normocephalic, atraumatic. EYES: PERRLA/EOMI, conjunctivae clear. NOSE: Normal no drainage EARS:TMS clear with good light reflex. THROAT: Pharynx clear, no exudate. NECK: Supple. No adenopathy, no masses. RESPIRATORY: Airway patent, respirations nonlabored. Clear to auscultation bilaterally, no rales, rhonchi, wheezing. CARDIOVASCULAR: Regular rate and rhythm without murmurs rubs or gallops. ABDOMINAL: Soft, nontender, nondistended, normal bowel sounds MUSCULOSKELETAL: Moves all extremities. Strength/ROM intact, No edema, No calf tenderness. NEURO: Alert. Cranial nerves II through XII intact. Good gait. Good coordination SKIN: Warm, dry. Normal Color Course Vital Signs Vital signs: Vital Signs Temperature 97.1 F L 02/12/24 10:31 Pulse Rate 63 02/12/24 10:31 Respiratory Rate 18 02/12/24 10:31 Blood Pressure 85/47 L 02/12/24 10:31 Pulse Oximetry 100 02/12/24 10:31 Oxygen Delivery Room Air 02/12/24 10:31 Temperature 97.1 F L 02/12/24 10:31 Pulse Rate 68 02/12/24 18:46 Respiratory Rate 24 H 02/12/24 18:46 Blood Pressure 123/71 02/12/24 18:46 Pulse Oximetry 97 02/12/24 18:46 Oxygen Delivery Nasal Cannula 02/12/24 13:49 Oxygen Flow Rate 2 02/12/24 13:49 Medical Decision Making MDM Narrative Medical decision making narrative: 78-year-old male with history of CLL presented to the emergency department for evaluation for anemia and thrombocytopenia. Patient has no active bleeding. Patient's hemoglobin today was 7.9 and patient platelet count was 21. Patient has had a similar thrombocytopenia since the 17 of this month. Patient does report approximately 2 weeks of fatigue. Oncology, Dr. Randall, was consulted and recommended rehydration and admission. No specific hematologic orders were given. Patient was treated with IV fluid and does feel improved. Patient does have echocardiogram from 09/05/2019 to that does show normal left ventricle size with EF of 60-65 I discussed case with the hospitalist Jamie in she was concerned that the patient was having tumor lysis syndrome and we cannot adequately treat that here. I discussed with the patient where he preferred to be transferred [facility] to [facility] Patient preferred to be transferred to [facility]. Case Discussed with Dr. Salcido. Differential Diagnosis Differential Diagnosis: Anemia, neutropenia, thrombocytopenia, tumor lysis syndrome, acute kidney injury, hyperkalemia Vital Signs Vital Signs: Vital Signs Temperature 97.1 F L 02/12/24 10:31 Pulse Rate 63 02/12/24 10:31 Respiratory Rate 18 02/12/24 10:31 Blood Pressure 85/47 L 02/12/24 10:31 Pulse Oximetry 100 02/12/24 10:31 Oxygen Delivery Room Air 02/12/24 10:31 Temperature 97.1 F L 02/12/24 10:31 Pulse Rate 68 02/12/24 18:46 Respiratory Rate 24 H 02/12/24 18:46 Blood Pressure 123/71 02/12/24 18:46 Pulse Oximetry 97 02/12/24 18:46 Oxygen Delivery Nasal Cannula 02/12/24 13:49 Oxygen Flow Rate 2 02/12/24 13:49 Lab Data Lab results reviewed: Yes I reviewed the patient's lab results. 02/12/24 10:59 02/12/24 10:59 Labs: Lab Results 02/12/24 02/12/24 02/12/24 Range/Units 10:59 11:37 12:13 WBC 21.7 H (4.5-10.0) K/mm3 RBC 2.24 L (4.6-6.20) M/mm3 Hgb 7.9 L (14.0-18.0) g/dL Hct 25.7 L (42.0-52.0) % MCV 114.7 H (80-100) fl MCH 35.3 H (26-34) pg MCHC 30.7 L (32-36) g/dl RDW 21.9 H (11.5-14.5) % Plt Count 21 L* (150-375) k/mm3 MPV 13.2 H (7.4-10.4) fl Immature Gran % (Auto) 4.8 H (0-0.5) % Neut % (Auto) 70.4 (45.5-73.1) % Lymph % (Auto) 7.2 L (18.3-44.2) % Summit % (Auto) 16.7 H (2.6-8.5) % Eos % (Auto) 0.4 (0-4.4) % Baso % (Auto) 0.5 (0.2-1.2) % Lymph # (Auto) 1.56 (0.9-3.2) K/mm3 Summit # (Auto) 3.6 H (0.1-0.6) K/mm3 Eos # (Auto) 0.1 (0-0.3) K/mm3 Baso # (Auto) 0.1 (0.0-0.1) K/mm3 Abs Immat Gran (auto) 1.04 H (0.00-0.031) K/mm3 Absolute Neuts (auto) 15.3 H (1.3-6.7) K/mm3 Absolute Nucleated RBC 2.360 H (0.0-0.012) K/mm3 Nucleated RBC % 10.9 H (0.0-0.2) % Platelet Estimate Decreased (Adequate) % Immature Plt Fraction 16.5 H (0.9-11.2) % Anisocytosis 1+ Macrocytosis 2+ (NORMAL) Schistocytes None seen PT 17.0 H (11.1-14.7) Seconds INR 1.4 APTT 35.1 (22.3-36.8) Seconds Sodium 140 (137-145) mmol/L Potassium 5.4 H (3.4-5.0) mmol/L Chloride 110 H (98-107) mmol/L Carbon Dioxide 12 L (22-30) mmol/L Anion Gap 18 H (4-12) mmol/L BUN 63 H (9-20) mg/dL Creatinine 2.80 H (0.7-1.3) mg/dL Estim Creat Clear Calc 20 ml/min Estimated GFR 22 L (59 - ) Glucose 204 H (65-110) mg/dL Lactic Acid 9.0 H* (0.7-2.0) mmol/L Uric Acid (3.5-8.5) mg/dL Calcium 9.3 (8.4-10.2) mg/dL Total Bilirubin 1.0 (0.2-1.3) mg/dL AST 47 (17-59) U/L ALT 15 (6-50) U/L Alkaline Phosphatase 114 (38-126) U/L Total Protein 6.0 L (6.3-8.2) g/dL Albumin 3.5 (3.5-5.1) g/dL Urine Color Yellow (Yellow) Urine Appearance Clear (Clear) Urine pH 5.0 (5.0-9.0) Ur Specific Williamson 1.017 (1.001-1.035) Urine Protein 1+ H (Negative) mg/dL Urine Glucose (UA) Negative (Negative) mg/dL Urine Ketones Trace H (Negative) mg/dL Ur Blood (Man) Negative (Negative) Urine Nitrate Negative (Negative) Urine Bilirubin Negative (Negative) Urine Urobilinogen 1.0 (<2.0) mg/dL Add Ur Microanalysis Reviewed Leukocyte Esterase Rfl Negative (Negative) KRYSTLE/UL Urine RBC 0-2 (0-2) /hpf Urine WBC 0-5 (0-3) /hpf Ur Squamous Epith Cells Occasional (Few) /hpf Urine Bacteria None seen /hpf Urine Casts >20 Nasal MRSA (PCR) (NOT DETECTE) Influenza A (RT-PCR) Negative (Negative) Influenza B (RT-PCR) Negative (Negative) RSV (RT-PCR) Negative (Negative) SARS-CoV-2 RNA (RT-PCR) Negative (Negative) Blood Type A Positive Antibody Screen Negative 02/12/24 02/12/24 02/12/24 Range/Units 13:29 14:15 14:21 WBC (4.5-10.0) K/mm3 RBC (4.6-6.20) M/mm3 Hgb (14.0-18.0) g/dL Hct (42.0-52.0) % MCV (80-100) fl MCH (26-34) pg MCHC (32-36) g/dl RDW (11.5-14.5) % Plt Count (150-375) k/mm3 MPV (7.4-10.4) fl Immature Gran % (Auto) (0-0.5) % Neut % (Auto) (45.5-73.1) % Lymph % (Auto) (18.3-44.2) % Summit % (Auto) (2.6-8.5) % Eos % (Auto) (0-4.4) % Baso % (Auto) (0.2-1.2) % Lymph # (Auto) (0.9-3.2) K/mm3 Summit # (Auto) (0.1-0.6) K/mm3 Eos # (Auto) (0-0.3) K/mm3 Baso # (Auto) (0.0-0.1) K/mm3 Abs Immat Gran (auto) (0.00-0.031) K/mm3 Absolute Neuts (auto) (1.3-6.7) K/mm3 Absolute Nucleated RBC (0.0-0.012) K/mm3 Nucleated RBC % (0.0-0.2) % Platelet Estimate (Adequate) % Immature Plt Fraction (0.9-11.2) % Anisocytosis Macrocytosis (NORMAL) Schistocytes PT (11.1-14.7) Seconds INR APTT (22.3-36.8) Seconds Sodium (137-145) mmol/L Potassium (3.4-5.0) mmol/L Chloride (98-107) mmol/L Carbon Dioxide (22-30) mmol/L Anion Gap (4-12) mmol/L BUN (9-20) mg/dL Creatinine (0.7-1.3) mg/dL Estim Creat Clear Calc ml/min Estimated GFR (59 - ) Glucose (65-110) mg/dL Lactic Acid 5.7 H* 4.9 H* (0.7-2.0) mmol/L Uric Acid 12.5 H (3.5-8.5) mg/dL Calcium (8.4-10.2) mg/dL Total Bilirubin (0.2-1.3) mg/dL AST (17-59) U/L ALT (6-50) U/L Alkaline Phosphatase (38-126) U/L Total Protein (6.3-8.2) g/dL Albumin (3.5-5.1) g/dL Urine Color (Yellow) Urine Appearance (Clear) Urine pH (5.0-9.0) Ur Specific Williamson (1.001-1.035) Urine Protein (Negative) mg/dL Urine Glucose (UA) (Negative) mg/dL Urine Ketones (Negative) mg/dL Ur Blood (Man) (Negative) Urine Nitrate (Negative) Urine Bilirubin (Negative) Urine Urobilinogen (<2.0) mg/dL Add Ur Microanalysis Leukocyte Esterase Rfl (Negative) KRYSTLE/UL Urine RBC (0-2) /hpf Urine WBC (0-3) /hpf Ur Squamous Epith Cells (Few) /hpf Urine Bacteria /hpf Urine Casts Nasal MRSA (PCR) Not detected (NOT DETECTE) Influenza A (RT-PCR) (Negative) Influenza B (RT-PCR) (Negative) RSV (RT-PCR) (Negative) SARS-CoV-2 RNA (RT-PCR) (Negative) Blood Type Antibody Screen Imaging Data Radiologist's impression: Impressions Chest X-Ray 02/12/24 11:11 IMPRESSION: Left basal atelectasis versus pneumonia with pleural effusion. Discharge Plan Discharge Clinical Impression: Thrombocytopenia, Tumor lysis syndrome Patient Disposition: Acute Care Hospital Condition: Serious Patient Language: Greenlandic Prescriptions: No Action metformin 500 mg tablet extended release 24 hr 500 mg PO DAILY Qty: 90 1RF allopurinol 100 mg tablet 100 mg PO DAILY furosemide 20 mg tablet 20 mg PO QAM olanzapine 5 mg tablet 5 mg PO DAILY ondansetron HCl 8 mg tablet 8 mg PO Q8H prednisone 20 mg tablet 20 mg PO BID valacyclovir 500 mg tablet 500 mg PO DAILY (DME) lancing device [lancing device with lancets] Misc See Rx Instructions .Route Qty: 1 3RF Rx Instructions: As directed daily losartan 100 mg tablet 100 mg PO DAILY Qty: 90 1RF echinacea 400 mg Capsule 400 mg PO HS Rx Instructions: administer with meals ferrous sulfate [Iron (ferrous sulfate)] 325 mg (65 mg iron) Tablet 325 mg PO HS multivitamin Capsule 1 cap PO HS atorvastatin 10 mg tablet See Rx Instructions .ROUTE .COMPLEX Qty: 30 5RF Dose Instruction: TAKE 1 TABLET BY MOUTH AT BEDTIME Rx Instructions: TAKE 1 TABLET BY MOUTH AT BEDTIME fenofibrate 54 mg tablet 54 mg PO DAILY Qty: 90 1RF hydralazine 25 mg tablet 50 mg PO HS Qty: 180 1RF nebivolol [Bystolic] 20 mg tablet See Rx Instructions .ROUTE .COMPLEX Qty: 90 2RF Dose Instruction: TAKE 1 TABLET BY MOUTH DAILY Rx Instructions: TAKE 1 TABLET BY MOUTH DAILY amlodipine 5 mg tablet 5 mg PO DAILY Qty: 30 5RF tamsulosin 0.4 mg capsule 0.4 mg PO DAILY Qty: 90 1RF pantoprazole 40 mg tablet,delayed release (DR/EC) 40 mg PO QAM Qty: 90 1RF Follow-up/Referrals: Jessica Carrillo MD [Primary Care Provider] -
[2024-02-12 12:18] LABS: Influenza A QL RT-PCR Negative (Negative); Influenza B QL RT-PCR Negative (Negative); RSV RNA, RT-PCR Negative (Negative); SARS-CoV-2 RNA PCR Negative (Negative)
--- NOTE | 2024-02-12 13:11 | P.HP_ITS ---
H&P: HPI History of Present Illness Date/Time: 02/12/24 13:11 Chief Complaint: Abnormal labs Narrative: Hospitals consultation in the ER 78-year-old male with past medical history of essential hypertension, GERD, type 2 diabetes mellitus and CLL diagnosed 2019 with recurrence November 2023 who presented to the ER with abnormal labs. The the patient and his help provide history. I discussed the patient's case with his at bedside with the patient's permission. The patient reports that he has been on chemotherapy since late November. He has been getting chemotherapy once a month. He was due to have chemotherapy last week but was unable to do so due to thrombocytopenia with a platelet count around 25,000. He reports he was given that unit of platelets and was told to come back this week for chemotherapy. When he went for chemotherapy at repeat labs checked which demonstrated anemia and thrombocytopenia as well as leukocytosis. He was directed to come to the ER for evaluation and possible admission. In the ER patient was noted to be hypotensive with blood pressures of 85/45. The patient received 30 mL/kilos fluid bolus with improvement in his blood pressures up to the 110s. The patient reports that he has a chronic cough due to adult onset asthma. However he does admit that his cough has been worse over the last 2 weeks. He denies any real fevers or chills. He has not had any chest pain. However he has noticed increased shortness of breath both at rest and with activity. X-ray performed in the ER did demonstrate pleural effusion left greater than right. He did have prior pleural effusion a couple of years ago that required thoracentesis. He reports his pleural effusion at that time was associated with chemotherapy. He denies any history of heart failure, lower extremity swelling or abdominal distension. His has been ill with some sinus congestion and she has been keeping her distance from him. His viral PCR for COVID flu and RSV were negative in the ER. Patient was noted have moderate tachypnea at the time my evaluation. He was satting persistently between 89 and 90% on room air. He denies any changes in urinary frequency hematuria or difficulty starting or stopping his urine stream. He denies history of BPH. His creatinine had jumped from baseline of around 1.4 up to 2.8. His serum bicarb which is usually around 20 was noted to be down to 12. Blood cultures were obtained in the ER and he on-call oncologist was called who wanted the patient to receive fluids and to be admitted to the hospital for further evaluation. At the time of my contact with ER requested stat repeat lactic acid because initial lactic acid was 9 and a stat uric acid level. The patient's lactic acid had improved down to 4.5 but patient's uric acid was elevated to 12.5 despite being on allopurinol at home. Has current concern for acute conversion to acute blue capacity process worse is tumor lysis from medications were conversion. I recommended the patient receive antibiotics to treat for possible pneumonia and recommended transfer to higher level of care. The patient had previously been evaluated and treated at [facility] and his oncologist here at our facility is associated with [facility]. Patient opted for transfer to [facility]. Patient last received chemotherapy on January 12 with rituximab-arrx, doxorubicin, cyclophosphamide and vincristine. He did not receive his chemotherapy on the due to thrombocytopenia and leukocytosis. Review of Systems 2 Review of Systems: 12 systems were reviewed with pertinent positives and negatives per HPI. Except as documented in the HPI, all other systems were reviewed and are negative. [facility] Past Medical History Medical History (Updated 02/12/24 @ 17:29 by Beverley Garcia DO) Obesity (BMI 30.0-34.9) H/O hepatitis Squamous cell carcinoma Diabetes Hyperlipidemia Hypertension (Unknown) CLL (chronic lymphocytic leukemia) (~02/2019) With recurrence in October or November 2023 Surgical History Surgical History (Updated 02/12/24 @ 17:14 by Beverley Garcia DO) Status post cataract extraction of both eyes with insertion of intraocular lens History of removal of Port-a-Cath 08/13/21 Family History Family History Father Alcoholism Rheumatoid arthritis Social History Social History (Updated 02/12/24 @ 16:21 by Beverley Garcia DO) Social History: The patient and his have been for 19 years. The patient denies having any children. He is a lifelong nonsmoker. He occasionally drinks a beer when he goes golfing. He denies history of illicit substance use. He used to work for the [employer] at [place]. Code status: Full code Surrogate decision maker: Smoking status: Never smoker Tobacco type: cigars Second hand tobacco smoke exposure: No Smoking end date: 06/17/04 Alcohol intake: current Drinks per week: 2 Substance use: never Substance use type: does not use Lack of Transportation: No Lack of Food: Never True Current Housing: I Have Housing Concerned About Future Housing: No Difficulty Paying Gas/Electric Bills: No Difficulty Paying for Meds: No Currently Unemployed: No Education: Associate Degree Difficulty w/ Childcare or Family Care: No Living arrangements: with family Gender identity (if verbalized by the patient): Male Sexual Orientation (if Verbalized by the Patient): Straight or Heterosexual Spiritual care concerns: No Agree to blood products: Yes Meds Home Medications and Allergies Home Medications ?Medication ?Instructions ?Recorded ?Confirmed ?Type echinacea 400 mg capsule 400 mg PO HS 08/07/21 01/14/24 History ferrous sulfate 325 mg (65 mg 325 mg PO HS 08/07/21 01/14/24 History iron) tablet (Iron (ferrous sulfate)) multivitamin 1 cap PO HS 08/07/21 02/03/24 History lancing device (lancing device #1 ea 10/18/21 01/14/24 Rx with lancets) losartan 100 mg tablet 100 mg PO DAILY #90 tabs 05/16/23 01/14/24 Rx atorvastatin 10 mg tablet See Rx Instructions .Route 05/23/23 01/14/24 Rx .COMPLEX #30 tabs metformin 500 mg tablet,extended 500 mg PO DAILY #90 tabs 07/04/23 01/14/24 Rx release 24 hr fenofibrate 54 mg tablet 54 mg PO DAILY #90 tabs 08/12/23 01/14/24 Rx hydralazine 25 mg tablet 50 mg (2 x 25 mg) PO HS #180 tabs 08/24/23 02/10/24 Rx nebivolol 20 mg tablet (Bystolic) See Rx Instructions .Route 08/29/23 01/14/24 Rx .COMPLEX #90 tabs allopurinol 100 mg tablet 100 mg PO DAILY 01/14/24 01/14/24 History furosemide 20 mg tablet 20 mg PO QAM 01/14/24 01/14/24 History olanzapine 5 mg tablet 5 mg PO DAILY 01/14/24 01/14/24 History ondansetron HCl 8 mg tablet 8 mg PO Q8H 01/14/24 01/14/24 History prednisone 20 mg tablet 20 mg PO BID 01/14/24 01/14/24 History valacyclovir 500 mg tablet 500 mg PO DAILY 01/14/24 01/14/24 History amlodipine 5 mg tablet 5 mg PO DAILY #30 tabs 01/23/24 02/10/24 Rx pantoprazole 40 mg tablet,delayed 40 mg PO QAM #90 tabs 02/02/24 02/03/24 Rx release tamsulosin 0.4 mg capsule 0.4 mg PO DAILY #90 caps 02/02/24 02/03/24 Rx Allergies Allergy/AdvReac Type Severity Reaction Status Date / Time No Known Allergies Allergy Verified 02/12/24 11:50 Vital Signs Vital Signs - 24 hr 02/12/24 10:31 02/12/24 11:03 02/12/24 11:12 Temperature 97.1 F L Pulse Rate 63 55 L 63 Respiratory Rate 18 30 H 28 H Blood Pressure 85/47 L 100/53 L 100/59 L Pulse Oximetry 100 92 96 Oxygen Delivery Room Air 02/12/24 12:01 Temperature Pulse Rate 65 Respiratory Rate 24 H Blood Pressure 119/77 Pulse Oximetry 94 Oxygen Delivery Exam 2 Narrative: Weight 80 kg BMI 28.8 Const: Other: Acutely ill-appearing, well-developed well-nourished, appears stated age HENMT: Other: Mucous membranes are tacky, no oral pharyngeal erythema, generalized oral pharyngeal pallor, head is normocephalic atraumatic Eyes: Other: Positive conjunctival pallor, no scleral icterus, pupils are equal and reactive with evidence of lens implants bilaterally Neck: Other: Enlarged bilateral upper anterior cervical lymph nodes nontender irregular and size, trachea midline Resp: Other: Moderate tachypnea, abdominal respirations Cardio: Other: Sinus tachycardia, 2+ bilateral radial pedal pulses, no GI: Other: Soft, nontender, nondistended, positive bowel sounds Skin: Other: Generalized pallor, non jaundice, no petechiae Neuro: Other: Alert orient x4, speech is clear, no facial asymmetry Extrem: Other: No clubbing, cyanosis or edema, 5/5 running specialist strength bilateral Psych: Other: Appropriate mood and affect, pleasant and cooperative, judgment and insight intact H&P: Results Labs Labs: Laboratory Tests 02/12/24 10:59 02/12/24 10:59 02/12/24 02/12/24 02/12/24 10:59 11:37 12:13 WBC 21.7 H RBC 2.24 L Hgb 7.9 L Hct 25.7 L MCV 114.7 H MCH 35.3 H MCHC 30.7 L RDW 21.9 H Plt Count 21 L* MPV 13.2 H Immature Gran % (Auto) 4.8 H Neut % (Auto) 70.4 Lymph % (Auto) 7.2 L [place] % (Auto) 16.7 H Eos % (Auto) 0.4 Baso % (Auto) 0.5 Lymph # (Auto) 1.56 [place] # (Auto) 3.6 H Eos # (Auto) 0.1 Baso # (Auto) 0.1 Abs Immat Gran (auto) 1.04 H Absolute Neuts (auto) 15.3 H Absolute Nucleated RBC 2.360 H Nucleated RBC % 10.9 H Platelet Estimate Decreased % Immature Plt Fraction 16.5 H Anisocytosis 1+ Macrocytosis 2+ Schistocytes None seen PT 17.0 H INR 1.4 APTT 35.1 Sodium 140 Potassium 5.4 H Chloride 110 H Carbon Dioxide 12 L Anion Gap 18 H BUN 63 H Creatinine 2.80 H Estim Creat Clear Calc 20 Estimated GFR 22 L Glucose 204 H Lactic Acid 9.0 H* Calcium 9.3 Total Bilirubin 1.0 AST 47 ALT 15 Alkaline Phosphatase 114 Total Protein 6.0 L Albumin 3.5 Urine Color Pending Urine Appearance Pending Urine pH Pending Ur Specific [place] Pending Urine Protein Pending Urine Glucose (UA) Pending Urine Ketones Pending Ur Blood (Man) Pending Urine Nitrate Pending Urine Bilirubin Pending Urine Urobilinogen Pending Leukocyte Esterase Rfl Pending Influenza A (RT-PCR) Negative Influenza B (RT-PCR) Negative RSV (RT-PCR) Negative SARS-CoV-2 RNA (RT-PCR) Negative Blood Type A Positive Antibody Screen Negative Impressions Chest X-Ray 02/12/24 11:11 IMPRESSION: Left basal atelectasis versus pneumonia with pleural effusion. EKG: Measurements Intervals [place] Rate: 62 P: 20 SD: 150 QRS: -5 QRSD: 107 T: -10 QT: 447 QTc: 456 Interpretive Statements SINUS RHYTHM MINIMAL VOLTAGE CRITERIA FOR LVH, CONSIDER NORMAL VARIANT [MEETS CRITERIA IN ONE OF: R(aVL), S(V1), R(V5), R(V5/V6)+S(V1)] NONSPECIFIC T-WAVE ABNORMALITY All imaging and EKGs personally reviewed and interpreted. And unless stated otherwise agree with radiologic and cardiology interpretation. Assessment and Plan Assessment and plan (1) Tumor lysis syndrome: Code(s): E88.3 - Tumor lysis syndrome Status: Acute (2) CLL (chronic lymphocytic leukemia): Onset Date: ~02/2019 Code(s): C91.10 - Chronic lymphocytic leukemia of B-cell type not having achieved remission Status: Resolved (3) Thrombocytopenia: Code(s): D69.6 - Thrombocytopenia, unspecified Status: Acute (4) Sepsis: Qualifiers: Sepsis type: sepsis due to unspecified organism Sepsis acute organ dysfunction status: with acute organ dysfunction Severe sepsis acute organ dysfunction type: acute respiratory failure Acute respiratory failure type: w ith hypoxia Severe sepsis shock status: without septic shock Qualified Code(s): A41.9 - Sepsis, unspecified organism; R65.20 - Severe sepsis without septic shock; J96.01 - Acute respiratory failure with hypoxia Code(s): A41.9 - Sepsis, unspecified organism Status: Acute (5) Acute hypoxic respiratory failure: Code(s): J96.01 - Acute respiratory failure with hypoxia Status: Acute (6) Acute kidney injury superimposed on stage 3a chronic kidney disease: Code(s): N17.9 - Acute kidney failure, unspecified; N18.31 - Chronic kidney disease, stage 3a Status: Acute (7) Acute hypotension: Code(s): I95.9 - Hypotension, unspecified Status: Acute (8) Pleural effusion on left: Code(s): J90 - Pleural effusion, not elsewhere classified Status: Acute (9) Diabetes: Qualifiers: Diabetes mellitus type: type 2 Diabetes 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 His leukocytosis could be due to acute infectious process verses conversion to acute myelogenous process. Blood cultures have been obtained and are pending. I would recommend starting broad-spectrum antibiotic coverage with cefepime and vancomycin. Given the elevated uric acid level in the setting of acute kidney injury on chronic kidney disease there is some concern for possible tumor lysis syndrome either chemo induced verses again less likely acute blastic process. Would recommend transfer to tertiary care is we do not have the medications available to treat blast crisis. Patient does have significant low serum bicarb due to acute kidney injury care. Acute kidney injury is multifactorial due to above and due to hypotension/hypoperfusion on presentation. Blood pressures have improved. If the patient's transport to tertiary care does not arrive soon would recommend starting the patient on bicarb drip. Would hold the patient's diuretic therapy, metformin and antihypertensive therapy in the acute setting. Patient does have significant lactic acidosis again likely multifactorial due to combination hypotension with possible underlying infection and metformin administration. Lactic acidosis still present but significantly improved from presentation. Treat underlying causes as discussed above. Patient did meet sepsis criteria with tachypnea, leukocytosis and severe lactic acidosis. Blood cultures and antibiotics as discussed above Patient does have low hemoglobin and low platelet count but numbers are relatively stable compared to prior. I would recommend holding off on transfusion at this time. Patient does have acute hypoxic respiratory failure possibly due to pleural effusion versus underlying infectious process. Antibiotics as discussed above. I have asked nursing to start the patient on nasal cannula oxygen. With initiation of nasal cannula oxygen patient's tachypnea has improved somewhat. Patient was seen and evaluated in the ER. Again I recommend transfer to tertiary care. At the time of my documentation the patient has been accepted [facility] under the care of the Oncology Service. Quality VTE Prophylaxis VTE prophylaxis: mechanical ordered If No VTE Prophylaxis Answer both mechanical and pharmacologic: Reason no pharmacologic proph: medical contraindication thrombocytopenia
[2024-02-12 13:39] LABS: Add Urine Microscopic? YES; Appearance Urine Clear (Clear); Bacteria Urine None Seen /hpf; Bilirubin Urine Negative (Negative); Blood Urine Negative (Negative); Color Urine Yellow (Yellow); Glucose Urine UA Negative (Negative); Ketones Urine Trace mg/dL (Negative); Leukocyte Esterase Ur Negative LEU/UL (Negative); Need Manual Microscopic Reviewed; Nitrate Urine Negative (Negative); Non Pathogenic Casts >20; Protein Urine 1+ mg/dL (Negative); RBC Urine 0-2 /hpf (0-2); Specific Grav Ur 1.017 (1.001-1.035); Squamous Epithelial Cell Urine Occasional /hpf (Few); WBC Urine 0-5 /hpf (0-3)
[2024-02-12 13:55] LABS: Uric Acid 12.5 mg/dL (3.5-8.5)
[2024-02-12 13:59] LABS: Lactic Acid Reflex 5.7 mmol/L (0.7-2.0)
[2024-02-12 14:06] LABS: Reflex Lactic Acid Yes or No Add Lactic
[2024-02-12] MEDS: CEFEPIME 1 GM/NS 50 ML 1 GM/50 ML BAG IVPB (14:14)
[2024-02-12 14:32] LABS: Lactic Acid 4.9 mmol/L (0.7-2.0)
[2024-02-12] MEDS: VANCOMYCIN 1,250 MG/NS 250 ML 1,250 MG/250 ML BAG 166.67 MG IVPB (14:39)
[2024-02-12 15:34] LABS: MRSA (PCR) NOT DETECTED (NOT DETECTE)
--- NOTE | 2024-02-12 15:57 | PC.NURSE ---
Report Given to MARGARITA Powell at [facility]. Room 4224 Obtained for patient.
[2024-02-12] MEDS: VANCOMYCIN 1,000 MG/NS 250 ML 1,000 MG/250 ML BAG 250 MG IVPB (16:12)
--- NOTE | 2024-02-12 19:25 | PC.NURSE ---
[facility] here at this time to transfer patient to [facility]. [facility] called at this time as well to notify of departure.
== END 2024-02-12 19:27 | disposition short-term general hospital (02) ==
PROVIDERS: Physician Assistant; Emergency Provider Emergency Medicine; PCP Family Medicine
DX: E88.3 Tumor lysis syndrome (principal); D69.6 Thrombocytopenia, unspecified; C91.10 Chronic lymphocytic leukemia of B-cell type not having achieved remission; Z20.822 Contact with and (suspected) exposure to COVID-19; I10 Essential (primary) hypertension; E11.9 Type 2 diabetes mellitus without complications; E78.5 Hyperlipidemia, unspecified; Z85.828 Personal history of other malignant neoplasm of skin; Z96.1 Presence of intraocular lens; Z98.42 Cataract extraction status, left eye; Z98.41 Cataract extraction status, right eye; Z87.891 Personal history of nicotine dependence; Z79.60 Long term (current) use of unspecified immunomodulators and immunosuppressants; Z79.84 Long term (current) use of oral hypoglycemic drugs; Z79.899 Other long term (current) drug therapy
CPT/HCPCS: 36415; 71046; 80053; 81001; 83605; 84550; 85025; 85055; 85610; 85730; 86850; 86900; 86901; 87040; 87637; 87641; 93005; 96365; 96366; 96367; 99285; J0692; J3370; J7030